=== PATIENT | female | born 1960 | race Caucasian/White ===

== ENCOUNTER 2025-04-19 12:12 | Outpatient (OUT) | payer OTHER, SELFPAY ==
--- OUTSIDE RECORDS SUMMARY | 2025-04-02 07:19 | XMS_ITS | Continuity of Care Document ---
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 [place] [address], [id number] , [place] tel:+ [phone] [facility] DE (chief complaint) Encounter for screening for dental disorders 2 Mubarak DDS Memo. [address] [place] [address], [id number], [place]. tel: [phone] [facility], [address] [place] [address], [id number] , [place] tel: [phone] [facility] de (chief complaint) Encounter for screening for dental disorders 2 Be ZUNILDA Dimitri. [address] [place] [address], [place], [id number] , [place]. tel: [phone] OFFICE/OUTPA TIENT VISIT, EST [facility], [address], [place], [id number] , [place] tel: [phone] [facility] F/U HTN (chief complaint)hyp ertension (chief complaint)Lab Draw (chief complaint) Hypertension, unspecified typeCervical radiculopathyCyst of tendon sheathBody mass index [BMI] 32.0-32.9, adult 2 Casey Weaver. [address] [place] [address], [id number] , [place]. tel: [phone] PREV VISIT, EST, AGE 40-64 [facility], [address] [place] [address], [id number] , [place] tel: [phone] [facility] annual exam (chief complaint) Encounter for gynecological examination (general) (routine) without abnormal findingsBody mass index [BMI] 32.0-32.9, adultCondyloma acuminatum 2 Jimbo Mendoza. [address] [place] [address], [id number] , [place]. tel: [phone] OFFICE/OUTPA TIENT VISIT, EST [facility], [address], [place], [id number] , [place] tel: [phone] [facility] F/U UTI (chief complaint)hyp ertension (chief complaint)All ergies (chief complaint)hyp erlipidemia (chief complaint)dep ression (chief complaint)BHAVESH D (chief complaint) Hypertension, unspecified typeHyperlipidemia , unspecified hyperlipidemia typeGastro-esophag eal reflux disease without esophagitisGeograp hic tongueAllergic rhinitis, unspecified seasonality, unspecified triggerSituational mixed anxiety and depressive disorderNeuropathy Neck painInjury of toe on left foot, initial encounterBody mass index [BMI] 32.0-32.9, adult 2 Casey Weaver. [address] [place] [address], [id number] , [place]. tel:+ [phone] OFFICE/OUTPA TIENT VISIT, [facility], [address] [place] [address], [id number] , [place] tel: [phone] [facility] Problem Visit UTI Symptoms (chief complaint)UTI (chief complaint) Acute UTIDysuria 2 Willam Pérez. [address] [place] [address], [id number] , [place]. tel: [phone] OFFICE/OUTPA TIENT VISIT, [facility], [address] [place] [address], [id number] , [place] tel: [phone] [facility] Follow-up (chief complaint)hyp ertension (chief complaint)daniel k pain (chief complaint)dep ression (chief complaint)hyp erlipidemia (chief complaint)All ergies (chief complaint) Hypertension, unspecified typeGastro-esophag eal reflux disease without esophagitisChronic low back pain, unspecified back pain laterality, unspecified whether sciatica presentAllergic rhinitis, unspecified seasonality, unspecified triggerSituational mixed anxiety and depressive disorderHyperlipid emia, unspecified hyperlipidemia typeBody mass index [BMI] 32.0-32.9, adultAtrial fibrillation, unspecified typeUpper respiratory tract infection, unspecified type 2 Casey Weaver. [address] [place] [address], [id number] , [place]. tel: [phone] OFFICE/OUTPA TIENT VISIT, [facility], [address] [place] [address], [id number] , [place] tel: [phone] [facility] Problem Visit (chief complaint) Exacerbation of asthma, unspecified asthma severity, unspecified whether persistentBody mass index [BMI] 31.0-31.9, adultAsthma 2 Waqar Cox. [address] [place], [address], [place]. tel: [phone] [facility], [address], [place], [id number] , [place] tel: [phone] [facility] Encounter For Screening For Covid-19 2 Visci DO Tien. [address], [place], [id number] , [place]. tel: [phone] OFFICE/OUTPA TIENT VISIT, [facility], [address], [place], [id number] , [place] tel: [phone] [facility] Problem Visit (chief complaint) Community acquired pneumonia of left lower lobe of lungAsthmaBody mass index [BMI] 31.0-31.9, adult 2 Charleen Edgar. [address] [place] [address], [id number] , [place]. tel: [phone] OFFICE/OUTPA TIENT VISIT, [facility], [address] [place] [address], [id number] , [place] tel: [phone] [facility] Short of breath/cough (chief complaint) Body mass index [BMI] 31.0-31.9, adultBronchitisAst hma 1 Willam Pérez. [address] [place] [address], [id number] , [place]. tel: [phone] [facility], [address] [place] [address], [id number] , [place] tel: [phone] [facility] Encounter For Screening For Covid-19 1 Visclori Cohen. [address] [place] [address], [id number] , [place]. tel: [phone] OFFICE/OUTPA TIENT VISIT, [facility], [address] [place] [address], [id number] , [place] tel: [phone] [facility] b/p check (chief complaint) Body mass index [BMI] 31.0-31.9, adultHypertension, unspecified typeWheezingShortn ess of breathNeuropathy 1 Charleen Edgar. [address] [place] [address], [id number] , [place]. tel: [phone] OFFICE/OUTPA TIENT VISIT, [facility], [address] [place] [address], [id number] , [place] tel: [phone] [facility] Mouth issues (chief complaint) Body mass index [BMI] 32.0-32.9, adultThrushHyperte nsion, unspecified typeSituational mixed anxiety and depressive disorder 1 Charleen Edgar. [address] [place] [address], [id number] , [place]. tel: [phone] OFFICE/OUTPA TIENT VISIT, [facility], [address] [place] [address], [id number] , [place] tel: [phone] [facility] Resp issues (chief complaint) Body mass index [BMI] 33.0-33.9, adultCoughThrush 1 Charleen Edgar. [address] [place] [address], [id number] , [place]. tel: [phone] OFFICE/OUTPA TIENT VISIT, [facility], [address] [place] [address], [id number] , [place] tel: [phone] [facility] Acute (chief complaint) Body mass index [BMI] 33.0-33.9, adultAcute bronchiolitis, unspecifiedExacerb ation of asthma, unspecified asthma severity, unspecified whether persistent 1 Willam Pérez. [address] [place] [address], [id number] , [place]. tel: [phone] OFFICE/OUTPA TIENT VISIT, [facility], [address] [place] [address], [id number] , [place] tel: [phone] [facility] Med Refill (chief complaint) Post-nasal drainageNeuropathy Situational mixed anxiety and depressive disorder 1 Charleen Edgar. [address] [place] [address], [id number] , [place]. tel:+ [phone] OFFICE/OUTPA TIENT VISIT, [facility], [address] [place] [address], [id number] , [place] tel: [phone] [facility] Follow-Up (chief complaint) Atrial fibrillation, unspecified typeHypertension, unspecified typeNeuropathySitu ational mixed anxiety and depressive disorderGastro-eso phageal reflux disease without esophagitis 1 Charleen Edgar. [address] [place] [address], [id number] , [place]. tel: [phone] OFFICE/OUTPA TIENT VISIT, [facility], [address] [place] [address], [id number] , [place] tel: [phone] [facility] telehealth (chief complaint) Cough 1 Charleen Edgar. [address] [place] [address], [id number] , [place]. tel: [phone] OFFICE/OUTPA TIENT VISIT, [facility], [address] [place] [address], [id number] , [place] tel: [phone] [facility] covid exposure (chief complaint) CoughChest tightnessFatigue, unspecified typeWheezingEncoun ter for screening for other viral disease 0 Charleen Edgar. [address] [place] [address], [id number] , [place]. tel:+ [phone] OFFICE/OUTPA TIENT VISIT, [facility], [address] [place] [address], [id number] , [place] tel:+ [phone] [facility] UTI SX (chief complaint) Body mass index [BMI] 34.0-34.9, adultDysuriaUrinar y frequency Oct- 0 Charleen Edgar. [address] [place] [address], [id number] , [place]. tel: [phone] OFFICE/OUTPA TIENT VISIT, [facility], [address] [place] [address], [id number] , [place] tel: [phone] [facility] f/u GERD (chief complaint) Body mass index [BMI] 34.0-34.9, adultAnnual physical examGastro-esophag eal reflux disease without esophagitisHyperte nsion, unspecified typeVertigo 0 Charleen Edgar. [address] [place] [address], [id number] , [place]. tel: [phone] OFFICE/OUTPA TIENT VISIT, [facility], [address] [place] [address], [id number] , [place] tel: [phone] [facility] problem visit (chief complaint) Body mass index (BMI) 34.0-34.9, adultGastro-esopha geal reflux disease without esophagitis Apr-0 0 Charleen Edgar. [address] [place] [address], [id number] , [place]. tel: [phone] OFFICE/OUTPA TIENT VISIT, [facility], [address] [place] [address], [id number] , [place] tel: [phone] [facility] annual exam (chief complaint) Body mass index (BMI) 34.0-34.9, [facility] woman check w/o abnormal findingHematoma of left breast 0 Jimbo [facility] Kelly. [address] [place] [address], [id number] , [place]. tel: [phone] OFFICE/OUTPA TIENT VISIT, [facility], [address] [place] [address], [id number] , [place] tel: [phone] [facility] mask issues (chief complaint) Body mass index (BMI) 34.0-34.9, adultAtrial fibrillation, unspecified type 0 Soto Buckley. [address], [place], [id number] , [place]. tel: [phone] [facility], [address], [place], [id number] , [place] tel: [phone] [facility] Encounter for screening for dental disorders 0 Bello Henry. [address], [place], [id number] , [place]. tel: [phone] [facility], [address], [place], [id number] , [place] tel: [phone] [facility] post op (chief complaint) Encounter for screening for dental disorder 0 Bello Henry. [address], [place], [id number] , [place]. tel: [phone] [facility], [address] [place] [address], [id number] , [place] tel: [phone] [facility] post op (chief complaint) Encounter for screening for dental disorder 0 Bello Henry. [address], [place], [id number] , [place]. tel: [phone] [facility], [address], [place], [id number] , [place] tel: [phone] [facility] ext (chief complaint) Encounter for screening for dental disorders 0 Bello Henry. [address], [place], [id number] , [place]. tel: [phone] OFFICE/OUTPA TIENT VISIT, EST [facility], [address], [place], [id number] , [place] tel: [phone] [facility] Skin Tag (chief complaint) Body mass index (BMI) 35.0-35.9, adultLow back pain 0 Charleen Edgar. [address], [place], [id number] , [place]. tel: [phone] [facility], [address], [place], [id number] , [place] tel: [phone] [facility] Filling Appt. (chief complaint) Encounter for screening for dental disorders 0 Fernandez Kaba. [address] [place] [address], [place], [id number] , [place]. tel: [phone] [facility], [address], [place], [id number] , [place] tel: [phone] [facility] sin tag removal (chief complaint) Body mass index (BMI) 35.0-35.9, adultAcrochordon 0 Charleen Edgar. [address] [place] [address], [id number] , [place]. tel: [phone] OFFICE/OUTPA TIENT VISIT, EST [facility], [address] [place] [address], [id number] , [place] tel: [phone] [facility] med refill (chief complaint) Body mass index (BMI) 35.0-35.9, adultHypertension, unspecified typeNeuropathyAtri al fibrillation, unspecified type 9 Charleen Edgar. [address] [place] [address], [id number] , [place]. tel: [phone] [facility], [address] [place] [address], [id number] , [place] tel: [phone] [facility] Encounter for screening for dental disorders 9 Fernandez Kaba. [address], [place], [id number] , [place]. tel: [phone] [facility], [address] [place] [address], [id number] , [place] tel: [phone] [facility] Encounter for screening for dental disorders 9 Bello Henry. [address] [place] [address], [id number] , [place]. tel: [phone] [facility], [address] [place] [address], [id number] , [place] tel: [phone] [facility] Dental New (chief complaint) Encounter for screening for dental disorders 9 gavin SUAREZ Varsha. [address] [place] [address], [id number] , [place]. tel: [phone] OFFICE/OUTPA TIENT VISIT, [facility], [address] [place] [address], [id number] , [place] tel: [phone] [facility] skin tag removal (chief complaint) Left foot painSkin lesionBody mass index (BMI) 35.0-35.9, adultAcrochordon 9 Charleen SQUIRES-Angie Edgar. [address] [place] [address], [id number] , [place]. tel: [phone] OFFICE/OUTPA TIENT VISIT, [facility], [address] [place] [address], [id number] , [place] tel: [phone] [facility] med f/u (chief complaint)hyp ertension (chief complaint) Well adult health checkLow back painNeuropathyBody mass index (BMI) 35.0-35.9, adultAcute pain of left shoulder 9 Charleen Edgar. [address] [place] [address], [id number] , [place]. tel: [phone] [facility], [address] [place] [address], [id number] , [place] tel: [phone] [facility] Neuropathy 9 Charleen Edgar. [address] [place] [address], [id number] , [place]. tel: [phone] OFFICE/OUTPA TIENT VISIT, [facility], [address] [place] [address], [id number] , [place] tel: [phone] [facility] b/p check and med refill (chief complaint) Body mass index (BMI) 34.0-34.9, adultHypertension, unspecified typeGeographic tongue 9 Charleen Edgar. [address], [place], [id number] , [place]. tel: [phone] OFFICE/OUTPA TIENT VISIT, [facility], [address] [place] [address], [id number] , [place] tel: [phone] [facility] Hysterectomy Consult (chief complaint) Body mass index (BMI) 34.0-34.9, adultCIN 1 9-201 9 Visci DO Tien. [address] [place] [address], [id number] , [place]. tel: [phone] [facility], [address] [place] [address], [id number] , [place] tel: [phone] [facility] urine sample (chief complaint) Dysuria 9 Charleen Edgar. [address] [place] [address], [id number] , [place]. tel: [phone] OFFICE/OUTPA TIENT VISIT, [facility], [address] [place] [address], [id number] , [place] tel: [phone] [facility] hosp f/u (chief complaint) VertigoBody mass index (BMI) 34.0-34.9, adult 9 Casey Weaver. [address] [place] [address], [id number] , [place]. tel: [phone] [facility], [address] [place] [address], [id number] , [place] tel: [phone] [facility] abnormal pap smear (chief complaint)Col poscopy (chief complaint) Body mass index (BMI) 35.0-35.9, adultASCUS on pap smear of cervixHPV (human papilloma virus) infectionCervical high risk HPV DNA test positive 0 9 Visci DO Chauhan. [address] [place] [address], [id number] , [place]. tel: [phone] OFFICE/OUTPA TIENT VISIT, EST [facility], [address] [place] [address], [id number] , [place] tel: [phone] [facility] swelling of tongue and throat (chief complaint) Body mass index (BMI) 34.0-34.9, adultMucosal irritation of oral cavityBruise 9 Casey Weaver. [address], [place], [id number] , [place]. tel: [phone] [facility], [address] [place] [address], [id number] , [place] tel: [phone] [facility] f/u sick visit (chief complaint) Body mass index (BMI) 34.0-34.9, adultUpper respiratory tract infection, unspecified typeOral pain 9 Casey Weaver. [address] [place] [address], [id number] , [place]. tel: [phone] [facility], [address], [place], [id number] , [place] tel: [phone] [facility] cold sx (chief complaint) Body mass index (BMI) 34.0-34.9, adultUpper respiratory tract infection, unspecified type 9 Casey Weaver. [address] [place] [address], [id number] , [place]. tel: [phone] [facility], [address] [place] [address], [id number] , [place] tel: [phone] [facility] F/u (chief complaint) Body mass index (BMI) 35.0-35.9, adultHospital discharge follow-upAtrial fibrillation, unspecified type 9 Charleen Edgar. [address] [place] [address], [id number] , [place]. tel: [phone] PREV VISIT, EST, AGE 40-64 [facility], [address] [place] [address], [id number] , [place] tel:+ [phone] [facility] annual exam (chief complaint) Encounter for screening mammogram for Ca of breastBody mass index (BMI) 34.0-34.9, adultEncntr for juvenile detention officer exam (general) (routine) w/o abn findings- STD liefstyle code- STD screen 9 [facility] Kelly. [address], [place], [id number] , [place]. tel: [phone] OFFICE/OUTPA TIENT VISIT, [facility], [address], [place], [id number] , [place] tel: [phone] [facility] throat (chief complaint) Body mass index (BMI) 35.0-35.9, adultCough 8 Charleen Edgar. [address] [place] [address], [id number] , [place]. tel: [phone] OFFICE/OUTPA TIENT VISIT, [facility], [address], [place], [id number] , [place] tel: [phone] [facility] bronchitis follow up (chief complaint) Body mass index (BMI) 35.0-35.9, adultBronchitisAst hmaCough 8 Prieto Cruz. [address], [place], [id number] , [place]. tel: [phone] OFFICE/OUTPA TIENT VISIT, [facility], [address], [place], [id number] , [place] tel: [phone] [facility] abnormal pap smear (chief complaint) Body mass index (BMI) 33.0-33.9, adultASCUS on pap smear of cervix 8 [facility] Kelly. [address], [place], [id number] , [place]. tel: [phone] OFFICE/OUTPA TIENT VISIT, [facility], [address] [place] [address], [id number] , [place] tel: [phone] [facility] lab review (chief complaint)rig ht foot (chief complaint)spo ts on fingers (chief complaint)Hac ker (chief complaint) Pain, foot, right, chronicBody mass index (BMI) 34.0-34.9, adultPrediabetesHy pertension, unspecified type - 8 Charleen Edgar. [address] [place] [address], [id number] , [place]. tel: [phone] [facility], [address] [place] [address], [id number] , [place] tel: [phone] [facility] labs (chief complaint) No Information - 8 Charleen Edgar. [address] [place] [address], [id number] , [place]. tel: [phone] [facility], [address] [place] [address], [id number] , [place] tel: [phone] [facility] urinary complaints (chief complaint) Body mass index (BMI) 34.0-34.9, adultUrinary tract infection without hematuria, site unspecified 8 Charleen Edgar. [address] [place] [address], [id number] , [place]. tel: [phone] [facility], [address] [place] [address], [id number] , [place] tel: [phone] [facility] sick (chief complaint)[place] t[place]: (chief complaint) CoughShortness of breathSore throatFatigue, unspecified typeDysuria Oct-3 0- 8 Moody Moore. [address] [place] [address], [id number], [place]. tel: [phone] [facility], [address] [place] [address], [id number] , [place] tel: [phone] [facility] pneumonia follow up (chief complaint)scr eenings (chief complaint) AsthmaHTNPneumonia due to infectious organism, unspecified laterality, unspecified part of lungLow back pain Mar-2 3-201 8 Leticia Nebwy. [address] [place] [address], [id number], [place]. tel: [phone] [facility], [address] [place] [address], [id number] , [place] tel: [phone] [facility] sick follow up (chief complaint)low back (chief complaint)Den efrenon: (chief complaint) AsthmaGastro-esoph ageal reflux disease without esophagitisHTNPneu monia due to infectious organism, unspecified laterality, unspecified part of lung Oct-0 9-201 8 Leticia Newby. [address] [place] [address], [id number], [place]. tel: [phone] [facility], [address] [place] [address], [id number] , [place] tel: [phone] [facility] ER follow up (chief complaint)ER follow-up (chief complaint) Pneumonia due to infectious organism, unspecified laterality, unspecified part of lung Mar-0 6-201 8 Uriosteguizenon Calderondith. [address] [place] [address], [id number], [place]. tel: [phone] PREV VISIT, EST, AGE 40-64 [facility], [address] [place] [address], [id number] , [place] tel: [phone] [facility] annual exam (chief complaint) Encntr for juvenile detention officer exam (general) (routine) w/o abn findingsEncounter for screening mammogram for Ca of breast- STD screen- STD liefstyle codeUrinary frequency 0 8 Jim[facility]. [address] [place] [address], [id number] , [place]. tel: [phone] OFFICE/OUTPA TIENT VISIT, EST [facility], [address] [place] [address], [id number] , [place] tel: [phone] [facility] sore throat (chief complaint) Acute pharyngitis, unspecifiedAcute pharyngitis, unspecified 7 Prieto Cruz. [address] [place] [address], [id number] , [place]. tel: [phone] [facility], [address] [place] [address], [id number] , [place] tel: [phone] [facility] swollen finger (chief complaint) Cellulitis of finger 7 Prieto Cruz. [address] [place] [address], [id number] , [place]. tel: [phone] OFFICE/OUTPA TIENT VISIT, [facility], [address] [place] [address], [id number] , US tel: [phone] [facility] leg pain (chief complaint) Unspecified injury of left lower leg, sequela 7 Prieto Cruz. [address] [place] [address], [id number] , [place]. tel: [phone] OFFICE/OUTPA TIENT VISIT, [facility], [address] [place] [address], [id number] , [place] tel: [phone] [facility] dizziness/los e balance (chief complaint)daniel k pain (chief complaint) Low back painVertigo 7 Prieto Cruz. [address] [place] [address], [id number] , [place]. tel: [phone] OFFICE/OUTPA TIENT VISIT, [facility], [address] [place] [address], [id number] , [place] tel: [phone] [facility] est care (chief complaint) HTNAsthmaGastro-es ophageal reflux disease without esophagitisEncount er for adult annual physical exam w/ abnormal finding 7 Prieto Cruz. [address] [place] [address], [id number] , [place]. tel: [phone] Family History Family Member Type Diagnosis Age At Onset Father Problem (finding) hypertension Father Problem (finding) Alive and well Father Problem (finding) Eczema Mother Problem (finding) Alive and well Father Problem (finding) asthma Father Problem (finding) hypercholesterolemia Immunizations Vaccine Date Status Comments Fluarix/Flulaval refused Source: New Immunization Record Fluarix/Flulaval not administered Source: New Immunization Record Flulaval/ Fluarix refused Source: Ne w Immunization Record Flulaval/ Fluarix refused Source: Ne w Immunization Record Tdap (Boostrix) administered Source: New Immunization Record Flulaval/ Fluarix refused Source: Ne w Immunization Record Flulaval/ Fluarix refused Source: Ne w Immunization Record Flulaval/ Fluarix refused Source: Ne w Immunization Record Influenza virus vaccine, quadrivalent, split virus, preservative free refused Source: New Immuniza tion Record Pneumo (2 yrs or older)(PPV) refused Source: New Immunization Record influenza, unspecified formulation administered Source: Other Regist ry Payers Payer name Insurance type Covered republican ID Authoriza tion(s) [employer] CI [id number] [facility] CI [id number] [facility] CI [id number] [place] CFC [id number] Medicaid Wrap - [facility] MC [id number] Self Pay Cap 09 [id number] Self Pay Cap [id number] Self Pay Cap [id number] Medicaid Primary - [facility]QHC MC [id number] Self Pay Cap 09 [id number] Medicaid Wrap - [facility] MC [id number] Social History Type Description Quantity Date Captured Comments Alcohol Use Details No Caffeine Use Details tea and soda > 32oz per day Tobacco Use Status Current non-smoker Smoking Status Never smoker Non-Smoking Tobacco Use Details : No Details Available : No Details Available Sex Female Sexual Orientation Straight or heterosexual Gender Identity Female Vital Signs Date / Time: Height Weight BMI Pulse Rate Blood Pressure Temperature Respiratory Rate Body Surface Area Head Circumference Head Circ. Percentile Wt./Timo. Percentile BMI percentile Pulse Ox Inhaled Ox 11:34 AM 63.00 in 85.003 kg (187.40 lbs) 33.2 0 kg/m eter (2) 69 /min 128/78 mm[Hg] 97.40 F 1.94 meter(2) 97 % Chief Complaint And Reason For Visit From encounter dated '04/02/2025 11:19'. Office visit (chief complaint). Description: Patient presents for hypertension follow up. Patient notes she gets intermittent pains in the back of her head that radiate to her eyes, some heart fluttering, dizziness and blurry vision. 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 Lalo hypertension (chief complaint). Description: It is currently stable. Risk factors include age over age 60, inactive lifestyle and obesity. The hypertension is exacerbated by nothing. Associated symptoms include headache and irregular heartbeat/palpitations. Pertinent negatives include chest pain, co nfusion, dyspnea, nausea, transient weakness, visual disturbances and vomiting. Additional information: Ahmet SQUIRES Palpitations (chief complaint). Description: The client presents with a complaint of Palpitations. The symptoms began 3 to 4 days ago. The client denies chest pain, dyspnea, nausea and vomiting. Relevant history for this client excludes tobacco use. The client denies any aggravating factors. Interventions the client has tried have not provided any relief. The Palpitations is associated with headache. The client denies any dependent edema, dyspnea on exertion, generalized weakness, lightheadedness or syncope. Additional information: Ahmet Reed Headache (chief complaint). Description: Onset: 2 Weeks. The severity of the problem is moderate. The symptoms are recurring. Locations affected include occipital. Symptoms are not associated with recent head trauma, recent MVA and stress. Denies aggravating factors. Denies relieving factors. Pertinent negatives include blurred vision, diplopia, dizziness, fever, loss of consciousness, nausea, phonophobia, photophobia, neck stiffness, vision loss left, vertigo and vomiting. Additional information: hAmet SQUIRES. Reason For Referral Reason For Referral No Information Plan Of Treatment Date Type Action Status Goal Depression scree tyler. Due on due Goal Zoster vaccine ( 1st). Due on due Goal Hepatitis C scre ening. Due on due Goal Tdap due Goal Influenza vaccine. Due on due Goal Tdap Vaccine. Due on 2031 due Goal HPV. Due on due Goal Hep A. Due on du e Goal Unhealthy drug u se screening. Due on due Goal Colonoscopy. Due on due Goal Mammogram. Due on due Goal PRAPARE ASSESSMENT. Due on due Goal Lipid panel. Due on due Goal Diabetes screening. Due on due Goal Urinalysis due Goal ECG. Due on due Goal Dietary manageme nt education, guidance, and counseling completed Goal Hep A. Due on du e Goal Zoster vaccine ( ). Due on due Goal HPV. Due on due Goal Colonoscopy. Due on due Goal PRAPARE ASSESSMENT. Due on due Goal Tdap due Goal Depression scree tyler. Due on due Goal ECG. Due on due Goal Urinalysis due Goal Diabetes screening. Due on due Goal Hepatitis C scre ening. Due on due Goal Tdap Vaccine. Due on 2031 due Goal Mammogram. Due on 0 due Goal Influenza vaccine. Due on due Goal Lipid panel. Due on due Goal Unhealthy drug u se screening. Due on due Goal Dietary manageme nt education, guidance, and counseling completed Goal Colonoscopy. Due on due Goal Influenza vaccine. Due on due Goal Depression scree tyler. Due on due Goal Zoster vaccine ( ). Due on due Goal Hepatitis C scre ening. Due on due Goal Tdap Vaccine. Due on 2031 due Goal Tdap due Goal Lipid panel. Due on due Goal HPV. Due on due Goal Mammogram. Due on 0 due Goal PRAPARE ASSESSMENT. Due on due Goal Unhealthy drug u se screening. Due on due Goal ECG. Due on due Goal Urinalysis due Goal Diabetes screening. Due on due Goal Dietary manageme nt education, guidance, and counseling completed Goal Influenza vaccine. Due on due Goal Lipid panel. Due on due Goal Tdap Vaccine. Due on 2031 due Goal Hepatitis C scre ening. Due on due Goal ECG. Due on due Goal Urinalysis due Goal PRAPARE ASSESSMENT. Due on due Goal Diabetes screening. Due on due Goal Unhealthy drug u se screening. Due on due Goal Colonoscopy. Due on due Goal Depression scree tyler. Due on due Goal Mammogram. Due on due Goal Tdap due Goal Zoster vaccine ( ). Due on due Goal Hep A. Due on du e Goal HPV. Due on due Goal Lifestyle education regardin g diet completed Goal Unhealthy drug u se screening. Due on due Goal Mammogram. Due on 0 due Goal Zoster vaccine ( ). Due on due Goal Lipid panel. Due on due Goal Tdap due Goal Hepatitis C scre ening. Due on due Goal Influenza vaccine. Due on due Goal PRAPARE ASSESSMENT. Due on due Goal Depression scree tyler. Due on due Goal HPV. Due on due Goal Tdap Vaccine. Due on 2031 due Goal Colonoscopy. Due on due Goal Diabetes screening. Due on due Goal Hep A. Due on du e Goal Urinalysis due Goal ECG. Due on due Goal ECG. Due on due Goal Depression scree tyler. Due on due Goal Unhealthy drug u se screening. Due on due Goal Zoster vaccine ( ). Due on due Goal Urinalysis due Goal Hepatitis C scre ening. Due on due Goal Mammogram. Due on due Goal Tdap due Goal Lipid panel. Due on due Goal Colonoscopy. Due on due Goal Tdap Vaccine. Due on 2031 due Goal Diabetes screening. Due on due Goal PRAPARE ASSESSMENT. Due on due Goal HPV. Due on due Goal Influenza vaccine. Due on due Goal Tdap Vaccine. Due on 2031 due Goal Colonoscopy. Due on due Goal HPV. Due on due Goal Lipid panel. Due on due Goal Hepatitis C scre ening. Due on due Goal Tdap due Goal Influenza vaccine. Due on due Goal Depression scree tyler. Due on due Goal Hep A. Due on du e Goal Mammogram. Due on 0 due Goal Zoster vaccine ( ). Due on due Goal Unhealthy drug u se screening. Due on due Goal PRAPARE ASSESSMENT. Due on due Goal Urinalysis due Goal Diabetes screening. Due on due Goal ECG. Due on due Goal Lifestyle education regardin g diet completed Goal Hep A. Due on du e Goal Urinalysis due Goal PRAPARE ASSESSMENT. Due on due Goal Unhealthy drug u se screening. Due on due Goal Mammogram. Due on 0 due Goal Depression scree tyler. Due on due Goal Lipid panel. Due on 029 due Goal ECG. Due on due Goal HPV. Due on due Goal Hepatitis C scre ening. Due on due Goal Diabetes screening. Due on due Goal Influenza vaccine. Due on due Goal Tdap Vaccine. Due on 2031 due Goal Tdap due Goal Colonoscopy. Due on 033 due Goal Zoster vaccine ( 1st). Due on due Goal Dietary manageme nt education, guidance, and counseling completed Goal Mammogram. Due on 0 due Goal Lipid panel. Due on due Goal PRAPARE ASSESSMENT. Due on N due Goal HPV. Due on due Goal Tdap due Goal Zoster vaccine ( 1st). Due on due Goal Unhealthy drug u se screening. Due on due Goal Hepatitis C scre ening. Due on due Goal Influenza vaccine. Due on No due Goal Tdap Vaccine. Due on 2031 due Goal Colonoscopy. Due on due Goal Depression scree tyler. Due on due Goal Diabetes screening. Due on N due Goal ECG. Due on due Goal Urinalysis due Goal Lifestyle education regardin g diet completed Goal Tdap due Goal Zoster vaccine ( ). Due on due Goal HPV. Due on due Goal Influenza vaccine. Due on Oc due Goal Mammogram. Due on 0 due Goal Lipid panel. Due on due Goal PRAPARE ASSESSMENT. Due on O due Goal Colonoscopy. Due on due Goal Depression scree tyler. Due on due Goal ECG. Due on due Goal Tdap Vaccine. Due on 2031 due Goal Unhealthy drug u se screening. Due on due Goal Hepatitis C scre ening. Due on due Goal Diabetes screening. Due on O due Goal Urinalysis due Goal Lifestyle education regardin g diet completed Goal Diabetes screening. Due on O due Goal Unhealthy drug u se screening. Due on due Goal Depression scree tyler. Due on due Goal ECG. Due on due Goal Hepatitis C scre ening. Due on due Goal Zoster vaccine ( 1st). Due on due Goal Lipid panel. Due on 029 due Goal Influenza vaccine. Due on Oc due Goal Urinalysis due Goal Tdap due Goal Colonoscopy. Due on 033 due Goal Mammogram. Due on due Goal PRAPARE ASSESSMENT. Due on O due Goal Tdap Vaccine. Due on 2031 due Goal HPV. Due on due Goal ECG. Due on due Goal HPV. Due on due Goal Unhealthy drug u se screening. Due on due Goal Zoster vaccine ( 1st). Due on due Goal Hepatitis C scre ening. Due on due Goal Diabetes screening. Due on O due Goal Tdap due Goal Mammogram. Due on 0 due Goal Urinalysis due Goal PRAPARE ASSESSMENT. Due on O due Goal Lipid panel. Due on due Goal Influenza vaccine. Due on Oc due Goal Colonoscopy. Due on due Goal Tdap Vaccine. Due on 2031 due Goal Depression scree tyler. Due on due Goal Lifestyle education regardin g diet completed Goal Zoster vaccine ( ). Due on due Goal Influenza vaccine. Due on Au due Goal Unhealthy drug u se screening. Due on due Goal Colonoscopy. Due on due Goal Lipid panel. Due on due Goal Tdap Vaccine. Due on 2031 due Goal Depression scree tyler. Due on due Goal Hepatitis C scre ening. Due on due Goal PRAPARE ASSESSMENT. Due on A due Goal HPV. Due on due Goal Mammogram. Due on due Goal Tdap due Goal ECG. Due on due Goal Diabetes screening. Due on A due Goal Urinalysis due Goal Dietary manageme nt education, guidance, and counseling completed Goal Mammogram. Due on 0 due Goal ECG. Due on due Goal Diabetes screening. Due on A due Goal Zoster vaccine ( ). Due on due Goal Lipid panel. Due on 029 due Goal Hepatitis C scre ening. Due on due Goal HPV. Due on due Goal Depression scree tyler. Due on due Goal Tdap due Goal Urinalysis due Goal PRAPARE ASSESSMENT. Due on due Goal Unhealthy drug u se screening. Due on due Goal Tdap Vaccine. Due on 2031 due Goal Influenza vaccine. Due on due Goal Colonoscopy. Due on due Goal PRAPARE ASSESSMENT. Due on due Goal Zoster vaccine ( ). Due on due Goal Mammogram. Due on 0 due Goal Urinalysis due Goal Colonoscopy. Due on due Goal Tdap Vaccine. Due on 2031 due Goal Depression scree tyler. Due on due Goal Influenza vaccine. Due on due Goal Unhealthy drug u se screening. Due on due Goal Tdap due Goal Hepatitis C scre ening. Due on due Goal Diabetes screening. Due on due Goal ECG. Due on due Goal Lipid panel. Due on due Goal HPV. Due on due Goal Lipid panel. Due on due Goal Unhealthy drug u se screening. Due on due Goal Tdap Vaccine. Due on 2031 due Goal HPV. Due on due Goal Tdap due Goal Zoster vaccine ( ). Due on due Goal Colonoscopy. Due on due Goal Mammogram. Due on 0 due Goal Hepatitis C scre ening. Due on due Goal Influenza vaccine. Due on due Goal Depression scree tyler. Due on due Goal PRAPARE ASSESSMENT. Due on due Goal Diabetes screening. Due on due Goal Urinalysis due Goal ECG. Due on due Goal Colonoscopy. Due on due Goal Diabetes screening. Due on due Goal Lipid panel. Due on due Goal Tdap due Goal Mammogram. Due on due Goal Zoster vaccine ( ). Due on due Goal Depression scree tyler. Due on due Goal Tdap Vaccine. Due on 2031 due Goal Influenza vaccine. Due on due Goal HPV. Due on due Goal Unhealthy drug u se screening. Due on due Goal Hepatitis C scre ening. Due on due Goal PRAPARE ASSESSMENT. Due on due Goal Urinalysis due Goal ECG. Due on due Goal Lifestyle education regardin g diet completed Goal Unhealthy drug u se screening. Due on due Goal Colonoscopy. Due on 033 due Goal Tdap due Goal Lipid panel. Due on 027 due Goal PRAPARE ASSESSMENT. Due on due Goal Hepatitis C scre ening. Due on due Goal Mammogram. Due on due Goal Influenza vaccine. Due on due Goal Zoster vaccine ( ). Due on due Goal HPV. Due on due Goal Depression scree tyler. Due on due Goal Tdap Vaccine. Due on 2031 due Goal ECG. Due on due Goal Diabetes screening. Due on due Goal Urinalysis due Goal ECG. Due on due Goal PRAPARE ASSESSMENT. Due on A due Goal Zoster vaccine ( 1st). Due on due Goal Colonoscopy. Due on 033 due Goal Diabetes screening. Due on A due Goal Tdap Vaccine. Due on 2031 due Goal Hep A. Due on du e Goal Lipid panel. Due on due Goal Urinalysis due Goal Depression scree tyler. Due on due Goal Hepatitis C scre ening. Due on due Goal Influenza vaccine. Due on due Goal HPV. Due on due Goal Mammogram. Due on due Goal Unhealthy drug u se screening. Due on due Goal Tdap due Goal Dietary manageme nt education, guidance, and counseling completed Goal Tdap Vaccine. Due on 2031 due Goal Influenza vaccine. Due on due Goal Zoster vaccine ( ). Due on due Goal Diabetes screening. Due on due Goal Hep A. Due on du e Goal HPV. Due on due Goal Tdap due Goal PRAPARE ASSESSMENT. Due on due Goal Unhealthy drug u se screening. Due on due Goal Hepatitis C scre ening. Due on due Goal Lipid panel. Due on due Goal Depression scree ytler. Due on due Goal Mammogram. Due on 0 due Goal Urinalysis due Goal ECG. Due on due Goal Colonoscopy. Due on due Goal Lifestyle education regardin g diet completed Goal Hep A. Due on du e Goal Hepatitis C scre ening. Due on due Goal Lipid panel. Due on due Goal Zoster vaccine ( ). Due on due Goal Tdap Vaccine. Due on 2031 due Goal Depression scree tyler. Due on due Goal HPV. Due on due Goal Unhealthy drug u se screening. Due on due Goal Mammogram. Due on 0 due Goal Tdap due Goal Influenza vaccine. Due on due Goal PRAPARE ASSESSMENT. Due on due Goal Colonoscopy. Due on due Goal Urinalysis due Goal ECG. Due on due Goal Diabetes screening. Due on due Goal Lifestyle education regardin g diet completed Goal HPV. Due on due Goal Influenza vaccine. Due on due Goal Tdap Vaccine. Due on 2031 due Goal Mammogram. Due on 0 due Goal Hepatitis C scre ening. Due on due Goal Zoster vaccine ( ). Due on due Goal Lipid panel. Due on due Goal Hep A. Due on du e Goal Diabetes screening. Due on due Goal Urinalysis due Goal Colonoscopy. Due on due Goal PRAPARE ASSESSMENT. Due on due Goal ECG. Due on due Goal Tdap due Goal Unhealthy drug u se screening. Due on due Goal Depression scree tyler. Due on due Goal Diabetes screening. Due on due Goal Hepatitis C scre ening. Due on due Goal ECG. Due on due Goal PRAPARE ASSESSMENT. Due on due Goal Urinalysis due Goal Influenza vaccine. Due on due Goal HPV. Due on due Goal Tdap Vaccine. Due on 2031 due Goal Mammogram. Due on 0 due Goal Lipid panel. Due on due Goal Unhealthy drug u se screening. Due on due Goal Colonoscopy. Due on due Goal Zoster vaccine ( ). Due on due Goal Depression scree tyler. Due on due Goal Tdap due Goal Tdap Vaccine. Due on 2031 due Goal Colonoscopy. Due on 033 due Goal Hepatitis C scre ening. Due on due Goal Zoster vaccine ( ). Due on due Goal Urinalysis due Goal Influenza vaccine. Due on due Goal PRAPARE ASSESSMENT. Due on due Goal HPV. Due on due Goal Tdap due Goal Hep A. Due on du e Goal Depression scree tyler. Due on due Goal Unhealthy drug u se screening. Due on due Goal Mammogram. Due on due Goal Lipid panel. Due on 027 due Goal ECG. Due on due Goal Diabetes screening. Due on due Goal Lifestyle education regardin g diet completed Goal Hep A. Due on du e Goal Tdap Vaccine. Due on 2031 due Goal Depression scree tyler. Due on due Goal Unhealthy drug u se screening. Due on due Goal Zoster vaccine ( ). Due on due Goal Colonoscopy. Due on due Goal HPV. Due on due Goal Tdap due Goal Urinalysis due Goal Lipid panel. Due on due Goal Hepatitis C scre ening. Due on due Goal Influenza vaccine. Due on due Goal Mammogram. Due on 0 due Goal PRAPARE ASSESSMENT. Due on due Goal ECG. Due on due Goal Diabetes screening. Due on due Goal Dietary manageme nt education, guidance, and counseling completed Goal Colonoscopy. Due on due Goal Depression scree tyler. Due on due Goal Tdap due Goal Hepatitis C scre ening. Due on due Goal Mammogram. Due on 0 due Goal Lipid panel. Due on due Goal HPV. Due on due Goal Zoster vaccine ( 1st). Due on due Goal PRAPARE ASSESSMENT. Due on due Goal Tdap Vaccine. Due on 2031 due Goal Influenza vaccine. Due on due Goal ECG. Due on due Goal Urinalysis due Goal Diabetes screening. Due on due Goal Unhealthy drug u se screening. Due on due Goal Dietary manageme nt education, guidance, and counseling completed Goal Tdap Vaccine. Due on 2031 due Goal Unhealthy drug u se screening. Due on due Goal Mammogram. Due on due Goal Tdap due Goal HPV. Due on due Goal Colonoscopy. Due on due Goal Lipid panel. Due on due Goal Hepatitis C scre ening. Due on due Goal PRAPARE ASSESSMENT. Due on N due Goal Zoster vaccine ( ). Due on due Goal Depression scree tyler. Due on due Goal Influenza vaccine. Due on due Goal Urinalysis due Goal ECG. Due on due Goal Diabetes screening. Due on N due Goal Zoster vaccine ( ). Due on due Goal HPV. Due on due Goal Colonoscopy. Due on due Goal Tdap due Goal Depression scree tyler. Due on due Goal Hepatitis C scre ening. Due on due Goal Unhealthy drug u se screening. Due on due Goal Mammogram. Due on due Goal Lipid panel. Due on due Goal PRAPARE ASSESSMENT. Due on N due Goal Influenza vaccine. Due on No due Goal Tdap Vaccine. Due on 2031 due Goal Urinalysis due Goal Diabetes screening. Due on N due Goal ECG. Due on due Goal Lifestyle education regardin g diet completed Goal Hep A. Due on du e Goal Influenza vaccine. Due on No due Goal Tdap due Goal Lipid panel. Due on 027 due Goal Colonoscopy. Due on 033 due Goal PRAPARE ASSESSMENT. Due on N due Goal Zoster vaccine ( ). Due on due Goal HPV. Due on due Goal Tdap Vaccine. Due on 2031 due Goal Mammogram. Due on due Goal Hepatitis C scre ening. Due on due Goal Unhealthy drug u se screening. Due on due Goal ECG. Due on due Goal Urinalysis due Goal Diabetes screening. Due on N due Goal Depression scree tyler. Due on due Goal PRAPARE ASSESSMENT. Due on O due Goal Hep A. Due on du e Goal Tdap Vaccine. Due on 2031 due Goal HPV. Due on due Goal Mammogram. Due on 0 due Goal Colonoscopy. Due on due Goal Hepatitis C scre ening. Due on due Goal Zoster vaccine ( ). Due on due Goal Lipid panel. Due on due Goal Influenza vaccine. Due on Oc t due Goal Unhealthy drug u se screening. Due on due Goal Tdap due Goal Depression scree tyler. Due on due Goal Urinalysis due Goal Diabetes screening. Due on O ct due Goal ECG. Due on due Goal Hep A. Due on du e Goal Colonoscopy. Due on due Goal Zoster vaccine ( ). Due on due Goal Diabetes screening. Due on S due Goal ECG. Due on due Goal Influenza vaccine. Due on Se due Goal Depression scree tyler. Due on due Goal Tdap due Goal PRAPARE ASSESSMENT. Due on S due Goal Mammogram. Due on 0 due Goal Tdap Vaccine. Due on 2031 due Goal Lipid panel. Due on due Goal Urinalysis due Goal Diabetes screening. Due on S due Goal Tdap due Goal Mammogram. Due on 0 due Goal PRAPARE ASSESSMENT. Due on S due Goal ECG. Due on due Goal Tdap Vaccine. Due on 2031 due Goal Colonoscopy. Due on due Goal Urinalysis due Goal Lipid panel. Due on due Goal Zoster vaccine ( ). Due on due Goal Depression scree tyler. Due on due Goal Influenza vaccine. Due on due Goal Lifestyle education regardin g diet completed Goal Hep A. Due on du e Goal Zoster vaccine ( ). Due on due Goal Influenza vaccine. Due on due Goal PRAPARE ASSESSMENT. Due on due Goal Lipid panel. Due on due Goal Colonoscopy. Due on due Goal Depression scree tyler. Due on due Goal Tdap due Goal Urinalysis due Goal Mammogram. Due on 0 due Goal ECG. Due on due Goal Tdap Vaccine. Due on 2031 due Goal Diabetes screening. Due on A due Goal Lifestyle education regardin g diet completed Goal Urinalysis due Goal Tdap Vaccine. Due on 2031 due Goal ECG. Due on due Goal Influenza vaccine. Due on due Goal Lipid panel. Due on due Goal Diabetes screening. Due on due Goal Colonoscopy. Due on due Goal Zoster vaccine ( 1st). Due on due Goal Tdap due Goal PRAPARE ASSESSMENT. Due on due Goal Mammogram. Due on due Goal Depression scree tyler. Due on due Goal Lipid panel. Due on due Goal Tdap Vaccine. Due on 2031 due Goal PRAPARE ASSESSMENT. Due on due Goal Mammogram. Due on 0 due Goal Zoster vaccine ( 1st). Due on due Goal Depression scree tyler. Due on due Goal ECG. Due on due Goal Influenza vaccine. Due on due Goal Tdap due Goal Diabetes screening. Due on due Goal Colonoscopy. Due on due Goal Urinalysis due Goal Zoster vaccine ( 1st). Due on due Goal Depression scree tyler. Due on due Goal PRAPARE ASSESSMENT. Due on due Goal Tdap due Goal Diabetes screening. Due on due Goal Mammogram. Due on 0 due Goal Tdap Vaccine. Due on 2031 due Goal Colonoscopy. Due on due Goal Urinalysis due Goal ECG. Due on due Goal Influenza vaccine. Due on due Goal Lipid panel. Due on due Goal Hep A. Due on du e Goal Depression scree tylre. Due on due Goal Lipid panel. Due on due Goal Tdap due Goal PRAPARE ASSESSMENT. Due on due Goal Urinalysis due Goal Mammogram. Due on 0 due Goal Diabetes screening. Due on due Goal Colonoscopy. Due on due Goal Tdap Vaccine. Due on 2031 due Goal Zoster vaccine ( ). Due on due Goal Influenza vaccine. Due on due Goal ECG. Due on due Goal Dietary manageme nt education, guidance, and counseling completed Goal Influenza vaccine. Due on due Goal Tdap Vaccine. Due on 2031 due Goal ECG. Due on due Goal Zoster vaccine ( ). Due on due Goal Lipid panel. Due on due Goal Mammogram. Due on 0 due Goal PRAPARE ASSESSMENT. Due on due Goal Depression scree tyler. Due on due Goal Urinalysis due Goal Colonoscopy. Due on 033 due Goal Diabetes screening. Due on due Goal Tdap due Goal PRAPARE ASSESSMENT. Due on due Goal Colonoscopy. Due on due Goal ECG. Due on due Goal Diabetes screening. Due on due Goal Influenza vaccine. Due on due Goal Hep A. Due on du e Goal Depression scree tyler. Due on due Goal FOBT. Due on due Goal Mammogram. Due on 0 due Goal Lipid panel. Due on due Goal Tdap Vaccine. Due on 2031 due Goal Zoster vaccine ( 1st). Due on due Goal Urinalysis due Goal Tdap due Goal Dietary manageme nt education, guidance, and counseling completed Goal Mammogram. Due on 0 due Goal Influenza vaccine. Due on due Goal PRAPARE ASSESSMENT. Due on due Goal Colonoscopy. Due on due Goal Lipid panel. Due on due Goal Tdap Vaccine. Due on 2031 due Goal FOBT. Due on due Goal Zoster vaccine ( 1st). Due on due Goal Depression scree tyler. Due on due Goal Tdap due Goal ECG. Due on due Goal Urinalysis due Goal Diabetes screening. Due on due Goal Dietary manageme nt education, guidance, and counseling completed Goal Colonoscopy. Due on 023 due Goal Diabetes screening. Due on due Goal Tdap Vaccine. Due on 2031 due Goal Lipid panel. Due on due Goal ECG. Due on due Goal PRAPARE ASSESSMENT. Due on due Goal Mammogram. Due on due Goal Hep A. Due on du e Goal Influenza vaccine. Due on due Goal Urinalysis due Goal Tdap due Goal FOBT. Due on due Goal Depression scree tyler. Due on due Goal Zoster vaccine ( ). Due on due Goal Dietary manageme nt education, guidance, and counseling completed Goal Hep A. Due on du e Goal Tdap Vaccine. Due on 2031 due Goal FOBT. Due on due Goal Lipid panel. Due on due Goal Depression scree tyler. Due on due Goal Urinalysis due Goal ECG. Due on due Goal Tdap due Goal PRAPARE ASSESSMENT. Due on due Goal Influenza vaccine. Due on due Goal Diabetes screening. Due on due Goal Mammogram. Due on 0 due Goal Colonoscopy. Due on due Goal Zoster vaccine ( ). Due on due Goal Zoster vaccine ( ). Due on due Goal Influenza vaccine. Due on due Goal Mammogram. Due on 0 due Goal ECG. Due on due Goal Urinalysis due Goal FOBT. Due on due Goal Lipid panel. Due on due Goal Depression scree tyler. Due on due Goal PRAPARE ASSESSMENT. Due on due Goal Colonoscopy. Due on due Goal Diabetes screening. Due on due Goal Tdap due Goal Dietary manageme nt education, guidance, and counseling completed Goal FOBT. Due on due Goal Lipid panel. Due on due Goal Colonoscopy. Due on due Goal Influenza vaccine. Due on due Goal Zoster vaccine ( 1st). Due on due Goal Diabetes screening. Due on due Goal Tdap due Goal Depression scree tyler. Due on due Goal Urinalysis due Goal ECG. Due on due Goal PRAPARE ASSESSMENT. Due on due Goal Mammogram. Due on 0 due Goal Dietary manageme nt education, guidance, and counseling completed Goal Depression scree tyler. Due on due Goal Mammogram. Due on 0 due Goal Colonoscopy. Due on due Goal Diabetes screening. Due on due Goal Zoster vaccine ( 1st). Due on due Goal Lipid panel. Due on due Goal Influenza vaccine. Due on due Goal PRAPARE ASSESSMENT. Due on due Goal Tdap due Goal Urinalysis due Goal FOBT. Due on due Goal ECG. Due on due Goal Dietary manageme nt education, guidance, and counseling completed Goal PRAPARE ASSESSMENT. Due on due Goal Colonoscopy. Due on due Goal Lipid panel. Due on due Goal Influenza vaccine. Due on due Goal Tdap due Goal Depression scree tyler. Due on due Goal Zoster vaccine ( ). Due on due Goal FOBT. Due on due Goal Urinalysis due Goal Mammogram. Due on 0 due Goal Diabetes screening. Due on due Goal ECG. Due on due Goal Dietary manageme nt education, guidance, and counseling completed Goal PRAPARE ASSESSMENT. Due on due Goal Depression scree tyler. Due on due Goal Lipid panel. Due on due Goal Influenza vaccine. Due on due Goal FOBT. Due on due Goal Colonoscopy. Due on due Goal Tdap due Goal Mammogram. Due on 0 due Goal Diabetes screening. Due on due Goal Urinalysis due Goal ECG. Due on due Goal Zoster vaccine ( ). Due on due Goal Weight-reducing diet educati on completed Goal Tdap. Due on due Goal Diabetes screening. Due on due Goal FOBT. Due on due Goal Lipid panel. Due on due Goal Depression scree tyler. Due on due Goal Colonoscopy. Due on due Goal Zoster vaccine ( 1st). Due on due Goal ECG. Due on due Goal Influenza vaccine. Due on No v due Goal PRAPARE ASSESSMENT. Due on N due Goal Mammogram. Due on 0 due Goal Urinalysis due Goal Dietary manageme nt education, guidance, and counseling completed Goal Influenza vaccine. Due on Oc due Goal Tdap. Due on due Goal ECG. Due on due Goal Urinalysis due Goal Lipid panel. Due on due Goal FOBT. Due on due Goal PRAPARE ASSESSMENT. Due on O due Goal Colonoscopy. Due on due Goal Mammogram. Due on 0 due Goal Zoster vaccine ( ). Due on due Goal Diabetes screening. Due on O due Goal Depression scree tyler. Due on due Goal Dietary manageme nt education, guidance, and counseling completed Goal Lipid panel. Due on due Goal Zoster vaccine ( 1st). Due on due Goal FOBT. Due on due Goal Depression scree tyler. Due on due Goal Mammogram. Due on 0 due Goal Colonoscopy. Due on due Goal Tdap. Due on due Goal PRAPARE ASSESSMENT. Due on O due Goal Diabetes screening. Due on O due Goal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 obesity. The hypertension is exacerbated by nothing. Pertinent negatives include chest pain, dyspnea, headache, irregular heartbeat/palpitations and transient weakness. Additional information: Meera hypertension It is currently getting worse. Risk factors include age over age 60, inactive lifestyle and obesity. The hypertension is exacerbated by missed dose today. Pertinent negatives include chest pain, diaphoresis, dyspnea, headache, irregular heartbeat/palpitations and transient weakness. Additional information: Meera URI The symptoms beg an 2 days ago. The symptoms have remained unchanged. The client presents with chills and earache. The client does not present with abdominal pain, anorexia, arthralgia, back pain, cough, diarrhea, fever, generalized weakness, headache, lymphadenopathy, myalgia, nausea, pharyngitis or vomiting. The client denies any aggravating factors. Interventions that have been tried have not provided any relief. The illness is associated with malaise. The client denies diaphoresis, dyspnea, hoarseness and rash. Additional information: Ahmet squires. HTN Patient here for HTN. Patient states since she's restarted taking her Metoprolol she's started having dizziness, chest tightness, and hot flashes. States surgery scheduling coordinator told her not to take it because he pulse was below 60 -- ANDRY May. HTN Patient here for HTN. Patient BP 162/96 -- LPN. Lalo hypertension It is currently getting worse. Risk factors include age over age 60, inactive lifestyle and obesity. The hypertension is exacerbated by nothing. Pertinent negatives include chest pain, dyspnea, headache, irregular heartbeat/palpitations and transient weakness. Additional information: Meera SRP SRP F/U HTN BP today 124/74F migue: RefusedStates she is having bladder sling surgery tomorrow.//[place]ina GAYTAN hypertension It is currently stable. Risk factors include age over age 60, inactive lifestyle and obesity. The hypertension is exacerbated by nothing. Pertinent negatives include chest pain, dyspnea, headache, irregular heartbeat/palpitations and transient weakness. Additional information: Ahmet [facility] SRP SRP filling filling periodic exam periodic exam ER Follow-up ER follow-up, we nt in saturday, for chest/back pain radiating into her neck/face. States BP was high during hospital visit.They kept her one night and was released saturday.Said they think it might be stomach ulcers so she wants to get EGDSaid they wanted to put her on a medication but she refused until she saw provider.//[place] GAY[place]AN[place] [facility] [place] to rule out cardiac etiology for epigastric pain radiating into chest. Advised per hospitalist of concern stomach ulcers could be returning. Patient diagnosed with stomach ulcers >10 years ago, notes she recently experienced the pain and nausea which has returned since discharge. Continues pantoprazole, concerned she may need a repeat EGD. [facility] Hypertension It is currently stable. Risk factors include age over age 60, inactive lifestyle and obesity. The hypertension is exacerbated by nothing. Pertinent negatives include chest pain, diaphoresis, dyspnea, irregular heartbeat/palpitations and transient weakness. Additional information: [facility] hyperlipidemia Risk factors inc lude age over 50 and sedentary life style. The patient is adhering to medication and follow-up for their hyperlipidemia. Hyperlipidemia management includes statins. Pertinent negatives include chest pain, diaphoresis, dyspnea, palpitations and transient weakness. Additional information: [facility] Anemia Type of anemia w as acquired for deficiency anemia (iron deficient). The problem is stable. There are no associated symptoms. Additional information: [facility] F/U BP 152/82 todayComp laints of jaw pain. Saw dentist and had x-ray dentist said he saw nothing wrong with jaw.//Carolina GAYTAN depression This is a follow up visit. Related symptoms are fairly controlled. The patient does not present with anxious/fearful thoughts, depressed mood or thoughts of or suicide. The depression is aggravated by conflict or stress. The patient's relieving factors are medication. The patient denies any sweating. Additional information: Ahmet GOVEA. Lab Draw Attempt to draw labs from left hand with no success. Patient tolerated well. Sent her to [facility] with req.//Carolina GAYTAN filling filling Dental limited 3mo HTN Pt here for 3mon BP check. Pt does not monitor BP at home. Pt had labs drawn 12/19 that were abnormal. Pt has not had them rechecked. Had colonoscopy completed. Pt sees Kelly for OBGYN. She told pt she would complete mammogram after her shoulder heals. Pt has c/o not being able to sleep. Wants to discuss. No other problems today. -Willis Lab draw Labs drawn on 2n d attempt RAC. 2x2 and bandage applied. //LUCILA Yu hypertension It is currently stable. Risk factors include age over age 60, inactive lifestyle and obesity. Pertinent negatives include chest pain, dyspnea, fatigue, headache, hematuria, irregular heartbeat/palpitations and transient weakness. Additional information: Ahmet GOVEA Anemia Type of anemia w as acquired for acute posthemorrhagic. Relevant medical history includes Surgery 12-19-22. The patient's anemia has not been managed with any medical interventions. Pertinent negatives include abdominal pain, chest pain, depression, dizziness, dyspnea, fatigue, headache and weight loss. Additional information: Ahmet GOVEA. Hearing loss (peds) Onset: 42 ye ars ago. The hearing loss occurs in the right ear more than the left ear. The frequency is constant. The problem is worsening. Context: meningitis age 19. Denies aggravating factors. Denies relieving factors. Associated symptoms include ringing in ears. Pertinent negatives include ability to pop ears, ear pressure and vertigo. Additional information: Ahmet GOVEA. Requesting referral Presents for request for referral. States due to her insurance she needs referral to ENT for hearing aids. Denies other problems/concerns. Jarad Cline RNLoss of hearing at age 19 due to meningitis, worse on the right ear. Ahmet GOVEA hypertension It is currently stable. Risk factors include age over age 60, inactive lifestyle and obesity. The hypertension is exacerbated by nothing. Pertinent negatives include chest pain, dyspnea, headache, irregular heartbeat/palpitations and transient weakness. Additional information: Reduction of beta blayne per her cardiology due to lower heart rate, will continue to reduce until off. Ahmet GOVEA Injury This is an initi al visit. The injury occurred 2 weeks ago. Symptoms related to the injury have improved. The trauma resulted from twisting/pivoting in the street approximately 2 weeks ago. The injury was not work related. Date of last tetanus: 07/12/2022. The patient has pain in the right, anterior knee with radiation to the none.Previous diagnostic studies and/or treatments that have been performed/administered include. Previous diagnostic studies and/or treatments that have not been performed/administered include radiographs. The injury is aggravated by movement, standing and walking. The patient had a response to rest. The injury is associated with localized swelling. The patient denies any decreased mobility, generalized weakness and headache. Additional information: Ahmet GOVEA. HTN f/u Pt here today fo r 3 month HTN check. Labs are UTD, as well as woman's health and colonoscopy. Pt states cardio is cutting out the metoprolol to half tab HS for 2 weeks and then stopping medication once 2 weeks are complete. Voices no other issues or concerns at this time. Roxanne. BP Check Pt states she mo nitors BP every once in awhile . Readings have been 130s/90s. Denies any dizzy spells. No other concerns. Willis hypertension It is currently stable. Risk factors include age over age 60, inactive lifestyle and obesity. The hypertension is exacerbated by nothing. Pertinent negatives include chest pain, dyspnea, irregular heartbeat/palpitations and transient weakness. Additional information: Ahmet [employer] [employer] hyperlipidemia Risk factors inc lude age over 50 and sedentary life style. The patient is adhering to medication and follow-up for their hyperlipidemia. The patient is not adhering to diet and exercise for their hyperlipidemia. Hyperlipidemia management includes statins. Pertinent negatives include chest pain, dizziness, dyspnea, myalgia, palpitations and transient weakness. Additional information: Ahmet GOVEA. asthma The initial visi t date was 09/21/2022. The symptoms have stabilized. Aggravating factors include respiratory infection. Symptom relief is noted with beta-agonist inhaler and LA beta-agonist/steroid inhaler. There are no associated symptoms. Pertinent negatives include irregular heartbeat/palpitations. Additional information: Ahmet GOVEA. depression This is a follow up visit. Related symptoms are controlled. The patient does not present with anxious/fearful thoughts, depressed mood or thoughts of or suicide. The depression is aggravated by conflict or stress. The patient's relieving factors are medication. Additional information: Ahmet GOVEA. Low BP Presents with c/ o an episode on Saturday where she was dizzy, lightheaded, just didn't feel good and took BP and it was 90's/50's. States it lasted about 5 hrs. Reports that she is still a little dizzy today. Jarad Cline RNComplaints of low BP and dizziness since this weekend, concerned may be due to her BP medication being too strong. Notes symptoms began shortly after starting HCTZ. Would like new referral placed for ganglion cyst of right middle finger, notes continues to grow and cause discomfort. Would like referral for repeat colonoscopy, last colonoscopy believed to be greater than [address] Kim. Continues to have pain to right arm after fall in shower over a month ago. Notes pain worse while laying on side at night. Increase at night while lying on arm. Treated with OTC medication. [facility] hypertension It is currently improving. Risk factors include age over age 60, inactive lifestyle and obesity. The hypertension is exacerbated by nothing. Pertinent negatives include chest pain, dyspnea, headache, irregular heartbeat/palpitations and transient weakness. Additional information: Ahmet [facility] f/u HTN Pt here for f/u HTN. Pt c/o R de la torre pain and lump d/t fall 3 weeks ago. Pt also c/o R middle finger cyst. Pt denies any other issues or concerns. Pt denies having Colonoscopy in past. LUCILA HawkinsInsurance starting this week agreeable to colonoscopy at that time. Complaints of injury to left lower leg hit on object while at work 2-3 weeks ago lump and bruising to area tender. Bruising improved, lump remains present. Fell in shower this week after slipping, notes right arm strain. Did take ibuprofen once for pain however continues to have pain to the area with movement. No deformity to right arm no decreased range of motion numbness or weakness. Remains on Eliquis blood thinner at this time. RGonzales [facility] Possible UTI Presents for pos sible UTI, reports frequency, urgency and burning for about 3 days hx of frequent UTI's. Also would like her throat checked feels like she has something stuck in it. Jarad Mcdowell noted. Here for possible UTI, then wants to check throat for possible foreign body. Able to control saliva. States she chronically feels as if something is stuck in her throat. Had discussed with her PCP who advised to chew food completely. Also states her headache continues and wants to talk further about her BP medication. Recently saw her normal PCP last week and has f/u appt with him in 3 weeks. States she is taking medication daily in the mornings. Instructed to continue plan of care, only been 1 week; and to keep f/u appt with her PCP. UTI Onset: 3 Days. T he severity of the problem is mild. The problem has not changed. The symptoms are intermittent. Presenting/Initial symptoms include dysuria, flank pain, frequency, lower back pain and urgency. Symptoms are not associated with diabetes. Symptoms are relieved by increased fluids. Associated symptoms include dysuria, flank pain, frequency, nocturia and retention. Pertinent negatives include abdominal pain, fatigue, fever, hesitancy, nausea, rash or vomiting. F/U HTN Pt here for f/u BP recheck. States takes meds every day as prescribed; denies any SE. Takes BP readings sometimes at home. BP elevated- 150/84; states she has not taken her meds this morning yet. Denies any other issues/concerns at this time. //C LUCILA Mace hypertension It is currently improving. Risk factors include age over age 60, inactive lifestyle and obesity. The hypertension is exacerbated by anxiety and stress. Pertinent negatives include chest pain, dyspnea, fatigue and headache. Additional information: Ahmet GOVEA Flu Vaccine Pt declines flu vaccine today. //C LUCILA Mace hypertension It is currently getting worse. Risk factors include age over age 60, inactive lifestyle and obesity. The hypertension is exacerbated by anxiety and stress. Pertinent negatives include chest pain, diaphoresis, dyspnea, fatigue, headache, transient weakness and visual disturbances. Additional information: Ahmet GOVEA f/u congestion Pt states sx hav e decreased since last visit. States she has just a little chest congestion, sinus drainage, and headaches now. Denies cough. States mucus is clear when she spits it out. 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 Is seeing them again after this appt. Franklin Ma RN Nasal congestion The obstruction occurs in both nostrils. The patient describes it as partial with thin nasal drainage. The problem fluctuates. Symptom is aggravated by allergies, weather and temperature changes. Relieving factors include nasal decongestants. Associated symptoms include nasal drainage (clear) and seasonal allergies. Pertinent negatives include deviated septum, facial pain, foreign body and headache. Additional information: Ahmet GOVEA. sick visit Pt here d/t head aches, cough, tightness in her chest and lower back pain, states these symptoms started 3 days. Pt states she has been alternating Tylenol and Ibuprofen but is not getting much relief. Pt denies any other symptoms. LUCILA Hawkins URI The symptoms beg an 2 to 3 days ago. The patient presents with back pain, chills, cough, fatigue, fever, headache and pharyngitis. The patient does not present with abdominal pain, arthralgia, diarrhea, earache, generalized weakness, lymphadenopathy, myalgia, nausea or vomiting. The symptoms are aggravated by exertion and lack of sleep. Interventions that have been tried have not provided any relief. The illness is associated with malaise. The patient denies change in appetite, change in sleep cycle, diaphoresis, dyspnea, hoarseness, lightheadedness, neck stiffness and rash. Additional information: Ahmet GOVEA. ER follow up Patient here for ER follow up. Patient had chest discomfort. Patient was told it was her asthma. Patient has not been at work since Saturday. Patient is having SOB when she is talking. Also b/p is still elevated. Andry Rivas.BP elevated at ER and in office today, notes she does take her losartan at night and metoprolol she cut her dose down to current dose on her own due to side effects caused at previous levels started by her surgery scheduling coordinator. Recent stop of diuretic due to reduced renal function. Diagnosed with asthma exacerbation in ER would like to refill her inhaler and nebulizer treatment, request spacer was offered spacer in ER and not given one .Notes she is currently taking Spiriva that was not taken by her friend and given to her. Has not filled her own Spriva this year. Symptoms improved following ER visit. Would like codeine cough syrup ordered PRN. Ahmet GOVEA F/U Kidney Patient her for follow up. GFR rate in 40's, getting checked weekly to monitor.//Carolina GAYTANNotes she has stopped her diuretic medication as previously discussed. Continues to have occasional episodes of nausea, vomiting and diarrhea. Notes she has not heard fro nephrology office regarding follow up. Recently pulled tooth to left upper with no antibiotic use. Notes she is anxious as she will soon be without health insurance. No other recent medication changes. Taking magnesium from surgery scheduling coordinator for 6 months without issues. Ahmet GOVEA Lab Draw Lab draw right a ntecube. 1 attempt successful. Patient tolerated it well.//Carolina GAYTAN Labs Labs drawn x1 at tempt RAC, pt tolerated well.//Sherrie GAYTAN. F/U Pt is here for F /U R/T kidney issues. Pt states she has been experiencing lower back pain that radiates to lower abdomen. States she has noticed increased urination, and has intermittent incontinence. States she has incontinence, but also has a hard time initiating urination. Pt is also concerned about right middle finger, states her finger is enlarged. Denies any other concerns at this time. Denies depression and anxiety. Denies smoking.//Sherrie GAYTAN.Follow [place] [facility] for complaints of diarrhea for 2 days, nausea for 1 day, lower back and pelvic pain radiating down left leg. Was notified her kidney function had worsened and scheduled for outpatient renal ultrasound which has been completed. Notes her nausea and diarrhea have resolved. Pain to back resolved, pelvic pain present with palpation. Advised per ER to follow up with PCP. No medication taken for symptoms at home. Admits to chronic back and leg pain. Occasional use of NSAIDs none recently. Missed her diuretic dose today. No prior history of renal dysfunction or renal stones. Ahmet GOVEA dl dl DE DE DE DED de hypertension It is currently stable. Risk factors include age over age 60, inactive lifestyle and obesity. The hypertension is exacerbated by nothing. Pertinent negatives include chest pain, dyspnea, fatigue, headache, irregular heartbeat/palpitations, transient weakness and visual disturbances. Additional information: Ahmet GOVEA Lab Draw Labs drawn from left antcube 1 attempt successful. Patient tolerated well.//Carolina GAYTAN F/U HTN BP today 112/72. Says no other health issues. States she had last colonoscopy at [facility] over 10 years ago. Contacted [facility], they said last colonoscopy was done in 2005.//Carolina GAYTANNeeds refill of her gabapentin, uncertain of when started, believes this was started by Luz Villaseñor for nerve pain. Notes medication well tolerated and working well. Ahmet GOVEA annual exam Currently pregna nt: no. : 2. Parity: Term: 2. Livin. The patient states she uses hysterectomy and menopausal for control. Her menses is absent. Negative for dysmenorrhea and menorrhagia. Negative for: breast discharge, breast lump(s), breast pain and breast self exam.Postmenopausal: Type: natural. The patient does not use tobacco. She does not drink alcohol. Additional information: Patient is here for annual exam. Had a total hysterectomy due to abnormal paps. C/O skin tag in the vaginal area and desires to have it removed today.. GERD The problem is i mproving. Aggravating factors include food. Symptoms are relieved by proton pump inhibitors. Associated symptoms include back pain. Pertinent negatives include bloating, blood in stool, diaphoresis, dizziness, dyspnea and vomiting. Additional information: [facility] hypertension It is currently stable. Risk factors include age over age 60, inactive lifestyle and obesity. The hypertension is exacerbated by nothing. Pertinent negatives include chest pain, diaphoresis, dyspnea, headache, irregular heartbeat/palpitations, transient weakness and visual disturbances. Additional information: [facility] F/U UTI No longer having UTI symptoms. Patient refusing to give urine due to not having enough money .Complains of stiff neck. No other issues.//[facility] RNComplaints of neck pain radiating into bilateral shoulders. Worsens with movement and pressure to the shoulders. Denies injury, notes she has a history of polyneuropathy and this is unchanged. Concerned may be due to neck issues.Kicked a wet floor sign with left foot 2 weeks ago and injured left great toes. Bruising and swelling have resolved, continues to have mild pain on occasion to the toe. Visited with cardiology Dr. Beard last month. informed he will continue magnesium and potassium at this time. Stopped ASA, continued elaquis. [facility] Allergies Symptoms are mil d and improving. The allergic symptoms are worsened by allergens. Symptoms are improved with allergy meds with good relief. There are no associated symptoms. The patient denies headache. Additional information: [facility]. hyperlipidemia Risk factors inc lude age over 50 and sedentary life style. The patient is adhering to medication and follow-up for their hyperlipidemia. The patient is not adhering to diet and exercise for their hyperlipidemia. Hyperlipidemia management includes statins. Associated symptoms include joint pain. Pertinent negatives include chest pain, diaphoresis, dizziness, dyspnea, palpitations and transient weakness. Additional information: [facility] depression This is a follow up visit. Related symptoms are well controlled. There is improvement of initial symptoms. The patient reports functioning as not difficult at all. The patient does not present with anxious/fearful thoughts, depressed mood or thoughts of or suicide. The patient denies any aggravating factors. The patient's relieving factors are a good response to medication. The patient denies any headache and sweating. Additional information: Ahmet GARCIA Problem Visit UTI Symptoms Notic ed is 3 days ago, urine was darker. First time this morning it was painful to urinate.Using Phenazopyridine over the counter for UTI symptoms.//Carolina GAYTAN UTI Onset: 3 Days. T he problem has worsened. The symptoms are constant. Presenting/Initial symptoms include burning, dysuria, frequency, hesitancy, suprapubic pain and urgency. Symptoms are associated with recurring urinary tract infections. Pertinent negatives include fever, hematuria, nausea, rash or vomiting. Additional information: Felipe SQUIRES. back pain The problem is s table. It occurs persistently. Location of pain is middle back and lower back.There is no radiation of pain. The patient describes the pain as an ache. Context: no injury. Symptoms are aggravated by sitting and standing. Symptoms are relieved by pain meds/drugs. Additional information: Ahmet GOVEA. depression This is a follow up visit. Related symptoms are controlled. The patient does not present with anxious/fearful thoughts, depressed mood, difficulty concentrating, difficulty falling asleep, difficulty staying asleep or thoughts of or suicide. The patient denies any aggravating factors. The patient's relieving factors are a good response to medication. The patient denies any headache and sweating. Additional information: Ahmet GOVEA. hyperlipidemia Risk factors inc lude age over 50 and sedentary life style. The patient is adhering to medication and follow-up for their hyperlipidemia. Hyperlipidemia management includes statins. Associated symptoms include dizziness. Pertinent negatives include chest pain, claudication, diaphoresis, dyspnea, myalgia, transient weakness and vision loss. Additional information: Ahmet GARCIA Allergies The patient pres ents with itchy eyes. Symptoms are intermittent, moderate and improving. The allergic symptoms are worsened by uncertain of aggravating factors. Symptoms are not improved with antibiotics, allergy meds, desensitization or weather change. The patient is also experiencing cough, dizziness, nasal congestion and nasal drainage. The patient denies chest tightness, coryza, headache, nausea, pharyngitis, post nasal drainage, sinus pain and sneezing. Additional information: Uses ceterizine, stopped flonase, recently finished doxycycline. [address] [employer]. hypertension It is currently stable. The hypertension is exacerbated by nothing. Pertinent negatives include chest pain, claudication, confusion, diaphoresis, dyspnea, headache, transient weakness and visual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 minutes5. No nicotine6. Alcohol in moderation7. Decrease weight8. Follow up: 1 month Related to Hypertension, unspecified type 1. CBC and iron stud ies pending2. Will contact if iron can be discontinued or should continue Related to Acute anemia 1. Take medications as prescribed.2. Continue or consider counseling3. Exercise regularly4. practice good sleep hygiene.5. Well balanced healthy diet6. [place] [facility] [place] suicidal or homicidal ideationsTOLL FREE [phone]. Follow up: 6 months Related to Depression with anxiety Giving encouragement to exercise Related to Body mass index [BMI] 33.0-33.9, adult Lifestyle education regarding di et Related to Body mass index [BMI] 33.0-33.9, adult 1. Take blood pressu re medication daily as prescribed.2. Monitor blood pressure at home regularly and record for next follow up visit.3. Reduce sodium intake to 1 tsp (2300mg) per day maximum 4. Participate in moderate intensity aerobic exercise 5 days per week 30 minutes5. No nicotine6. Alcohol in moderation7. Decrease weight8. Follow up: 3 months Related to Hypertension, unspecified type 1. CBC repeat Related to Acute anemia Dietary management e ducation, guidance, and counseling Related to Body mass index [BMI] 34.0-34.9, adult Giving encouragement to exercise Related to Body mass index [BMI] 34.0-34.9, adult 1. ENT If you have n ot been contacted per specialist office to which you referred to in 2 weeks please contact the [facility] at [phone] and advise triage nurse. Related to Progressive hearing loss, bilateral Giving encouragement to exercise Related to Body mass index [BMI] 33.0-33.9, adult Dietary management e ducation, guidance, and counseling Related to Body mass index [BMI] 33.0-33.9, adult 1. Ice to the area 1 5 minutes 3-4 times per day2. Rest and elevate3. Tylenol ES for discomfort.4. FOLLOW UP: 2 WEEK(s) if not improved Related to Injury of right knee, initial encounter 1. Take blood pressu re medication daily as prescribed.2. Monitor blood pressure at home regularly and record for next follow up visit.3. Reduce sodium intake to 1 tsp (2300mg) per day maximum 4. Participate in moderate intensity aerobic exercise 5 days per week 30 minutes5. No nicotine6. Alcohol in moderation7. Decrease weight8. Follow up: 3 months Related to Hypertension, unspecified type Giving encouragement to exercise Related to Body mass index [BMI] 33.0-33.9, adult Dietary management e ducation, guidance, and counseling Related to Body mass index [BMI] 33.0-33.9, adult 1. follow up with gastro as sche duled Related to Colon cancer screening 1. Take medications as prescribed.2. Diet limit intake of meals high in LDL cholesterol and increase intake of HDL containing foods.3. Increase fiber to 5-10 grams per day4. Exercise at least 30 minutes 3-5 times per week of active exercise5. No nicotine or smoking6. Follow up 6 months. Related to Hyperlipidemia, unspecified hyperlipidemia type 1. increase hydratio n2. Follow up as needed Related to Dizziness 1. Take medications as prescribed.2. Diet limit intake of meals high in LDL cholesterol and increase intake of HDL containing foods.3. Increase fiber to 5-10 grams per day4. Exercise at least 30 minutes 3-5 times per week of active exercise5. No nicotine or smoking6. Follow up 6 months. Related to Hypertension, unspecified type 1. Use inhalers as o rdered2. Report increased use of inhaler3. Avoid cigarette smoke. 4. FOLLOW UP in 6 months5. Return sooner for worsening of symptoms or fever.6. PLEASE ENSURE THAT YOUR INFLUENZA, PNEUMONIA, AND COVID-19 VACCINATIONS ARE UP TO DATE ANNUALLY. Related to Asthma 1. Take medications as prescribed.2. Consider counseling3. Exercise regularly4. practice good sleep hygiene.5. Well balanced healthy diet6. [place] [facility] [place] any suicidal or homicidal ideationsTOLL FREE [phone]. Follow up: 6 months Related to Depression with anxiety Dietary management e ducation, guidance, and counseling Related to Body mass index [BMI] 32.0-32.9, adult Giving encouragement to exercise Related to Body mass index [BMI] 32.0-32.9, adult 1. Referral placed t o gastroenterology If you have not been contacted per specialist office to which you referred to in 2 weeks please contact the [facility] at [phone] and advise triage nurse Related to Colon cancer screening 1. Referral to Ortho pedics If you have not been contacted per specialist office to which you referred to in 2 weeks please contact the [facility] at [phone] and advise triage nurse. Related to Cyst of tendon sheath 1. Take blood pressu re medication daily as prescribed.STOP HCTZ2. Monitor blood pressure at home regularly and record for next follow up visit.3. Reduce sodium intake to 1 tsp (2300mg) per day maximum 4. Participate in moderate intensity aerobic exercise 5 days per week 30 minutes5. Decrease weight8. Follow up: 3 WEEKS Related to Dizziness 1. gentle stretching 2. complete x-ray3. Rest as needed4. ice to area 15 minutes out of every hour while resting in the evenings5. heat to area in morning for 15-20 minutes6. Follow up: as scheduled Related to Arm injuries, right, subsequent encounter Giving encouragement to exercise Related to Body mass index [BMI] 32.0-32.9, adult Dietary management e ducation, guidance, and counseling Related to Body mass index [BMI] 32.0-32.9, adult 1. Not[facility] for s tart of insurance in order to refer for colonoscopy Related to Screening for colon cancer 1. gentle stretching 2. PR[place]SON[place] ORDEREDTYLENOL PRN3. Rest as needed4. ice to area 15 minutes out of every hour while resting in the evenings5. heat to area in morning for 15-20 minutes6. Follow up: 2 WEEKS IF NOT IMPROVED Related to Strain of right upper arm, initial encounter Both COVID-19 vaccin ation and annual influenza vaccinations are recommended by [facility] to those eligible, you may recieve them at your appointment today, if you choose to forgo vaccination today you can call to schedule via outpatient vaccination clinic at [phone]. 1. COVID-19 booster call to schedule2. Influenza vaccination- call to schedule Related to No vaccination-pt refuse 1. tyelnol prn2. NSA ID therapy3. Rest as needed4. ice to area 15 minutes out of every hour while resting in the evenings5. Follow up: 2 weeks if not resolved Related to Hematoma and contusion 1. Take blood pressu re medication daily as prescribed.ADDED HCTZ TO MEDS2. Monitor blood pressure at home regularly and record for next follow up visit.3. Reduce sodium intake to 1 tsp (2300mg) per day maximum 4. Participate in moderate intensity aerobic exercise 5 days per week 30 minutes5. No nicotine6. Alcohol in moderation7. Decrease weight8. Follow up: 1 month Related to Hypertension, unspecified type Giving encouragement to exercise Related to Body mass index [BMI] 32.0-32.9, adult Dietary management e ducation, guidance, and counseling Related to Body mass index [BMI] 32.0-32.9, adult 1. increase oral flu ids/water intake2. Empty bladder when has urge to urinate; do not hold urine. 3. Wipe front to back4. Change undergarments when wet/soiled5. Call if fever/chills or go to ER for any severe abd pain/worsening symptoms Related to Dysuria Giving encouragement to exercise Related to Body mass index [BMI] 33.0-33.9, adult Dietary management e ducation, guidance, and counseling Related to Body mass index [BMI] 33.0-33.9, adult Both COVID-19 vaccin ation and annual influenza vaccinations are recommended by [facility] to those eligible, you may recieve them at your appointment today, if you choose to forgo vaccination today you can call to schedule via outpatient vaccination clinic at [phone]. 1. COVID-19 booster call to schedule2. Influenza vaccination- call to schedule when available Related to No vaccination-pt refuse 1. Take blood pressu re medication daily as prescribed.PLEASE ENSURE YOU TAKE YOUR MEDICATION PRIOR TO YOUR NEXT APPOINTMENT2. Monitor blood pressure at home regularly and record for next follow up visit.3. Reduce sodium intake to 1 tsp (2300mg) per day maximum 4. Participate in moderate intensity aerobic exercise 5 days per week 30 minutes5. No nicotine6. Alcohol in moderation7. Decrease weight8. Follow up: 1 month Related to Hypertension, unspecified type Giving encouragement to exercise Related to Body mass index [BMI] 33.0-33.9, adult Dietary management e ducation, guidance, and counseling Related to Body mass index [BMI] 33.0-33.9, adult 1. fluticasone as or dered2. follow up 2 weeks Related to Allergic rhinitis, unspecified seasonality, unspecified trigger Both COVID-19 vaccin ation and annual influenza vaccinations are recommended by [facility] to those eligible, you may recieve them at your appointment today, if you choose to forgo vaccination today you can call to schedule via outpatient vaccination clinic at [phone]. 1. COVID-19 booster call to schedule2. Influenza vaccination- call to schedule when available Related to No vaccination-pt refuse 1. Take blood pressu re medication daily as prescribed.MOVE LOSARTAN TO AM DOSE CONTINUE TO TWICE DAILY METOPROLOL2. Monitor blood pressure at home regularly and record for next follow up visit.3. Reduce sodium intake to 1 tsp (2300mg) per day maximum 4. Participate in moderate intensity aerobic exercise 5 days per week 30 minutes5. No nicotine6. Alcohol in moderation7. Decrease weight8. Follow up: 2 WEEKS Related to Hypertension, unspecified type Giving encouragement to exercise Related to Body mass index [BMI] 33.0-33.9, adult Weight-reducing diet education R elated to Body mass index [BMI] 33.0-33.9, adult 1. Rest and hydrate2 . Over the counter medications for symptoms control3. Follow up in 1 week if symptoms have not improved4. Seek immediate medical attention for chest pain or shortness of breath. Related to Upper respiratory tract infection, unspecified type Giving encouragement to exercise Related to Body mass index [BMI] 32.0-32.9, adult Dietary management e ducation, guidance, and counseling Related to Body mass index [BMI] 32.0-32.9, adult 1. Take blood pressu re medication daily as prescribed.INCREASE LOSARTAN TO 100MG2. Monitor blood pressure at home regularly and record for next follow up visit.3. Reduce sodium intake to 1 tsp (2300mg) per day maximum 4. Participate in moderate intensity aerobic exercise 5 days per week 30 minutes5. No nicotine6. Alcohol in moderation7. Decrease weight8. Follow up: 1 months Related to Hypertension, unspecified type 1. Use inhaler as or dered2. Report increased use of inhaler3. Avoid cigarette smoke. 4. FU in 6 months5. Return sooner for worsening of symptoms or fever.6. PLEASE ENSURE THAT YOUR INFLUENZA, PNEUMONIA, AND COVID-19 VACCINATIONS ARE UP TO DATE ANNUALLY. Related to Asthma Giving encouragement to exercise Related to Body mass index [BMI] 33.0-33.9, adult Dietary management e ducation, guidance, and counseling Related to Body mass index [BMI] 33.0-33.9, adult 1. Reduce GABAPENTIN TO 100MG FOR 1-2 WEEKS PRIOR TO STOPPINGINCREASE PANTOPRAZOLE TO 40MG DAILY2. Do not eat 2 hours prior to bedtime3. Avoid large meals4. Avoid spicy or greasy foods, avoid other foods which may cause reflux5. famotidine 20mg daily6. Mylanta, Maalox, or RADHA as needed for immediate relief7. CMP- PENDING8. FOLLOW UP 2 WEEKS Related to Renal dysfunction Giving encouragement to exercise Related to Body mass index [BMI] 33.0-33.9, adult Lifestyle education regarding di et Related to Body mass index [BMI] 33.0-33.9, adult 1. CMP, UA pending2. Ultrasound results requested3. Stop triamterene/hctz4. Stop potassium5. Referral to nephrology6. Follow up 1 week7. Push fluids If you have not been contacted per specialist office to which you referred to in 2 weeks please contact the [facility] at [phone] and advise triage nurse. Related to Renal dysfunction Lifestyle education regarding di et Related to Body mass index [BMI] 32.0-32.9, adult Giving encouragement to exercise Related to Body mass index [BMI] 32.0-32.9, adult 1. Tylenol for pain2 . gentle stretching3. Referral will be placed to orthopedics for follow up If you have not been contacted per specialist office to which you referred to in 2 weeks please contact the [facility] at [phone] and advise triage nurse. Related to Cyst of tendon sheath 1. gentle stretching 2. Gabapentin as ordered3. Rest as needed4. ice to area 15 minutes out of every hour while resting in the evenings5. heat to area in morning for 15-20 minutes6. Follow up: 3 months Related to Cervical radiculopathy 1. Take blood pressu re medication daily as prescribed.2. Monitor blood pressure at home regularly and record for next follow up visit.3. Reduce sodium intake to 1 tsp (2300mg) per day maximum 4. Participate in moderate intensity aerobic exercise 5 days per week 30 minutes5. No nicotine6. Alcohol in moderation7. Decrease weight8. Follow up: 3 months Related to Hypertension, unspecified type Giving encouragement to exercise Related to Body mass index [BMI] 32.0-32.9, adult Lifestyle education regarding di et Related to Body mass index [BMI] 32.0-32.9, adult Discussed condyloma in detail. Treatment with TCA completed today. Encouraged to monitor and if persistent then RTC 3-4 weeks. Patient states understanding. Related to Condyloma acuminatum Encouraged monthly B SE. Recommend calcium 1000mg QD. Encouraged good dietary intake and exercise. Laboratory specimens sent to lab. Patient to call in 2 weeks if desires results. Related to Encounter for gynecological examination (general) (routine) without abnormal findings Giving encouragement to exercise Related to Body mass index [BMI] 32.0-32.9, adult Dietary management e ducation, guidance, and counseling Related to Body mass index [BMI] 32.0-32.9, adult 1. tylenol or ibupro fen as needed2. Rest as needed3. follow up 2-4 weeks if not resolved. Related to Injury of toe on left foot, initial encounter 1. Medication as dir ected2. Follow up 3 months Related to Neuropathy 1. gentle stretching Amena neck exercises as discussed2. NSAID therapy3. Rest as needed4. ice to area 15 minutes out of every hour while resting in the evenings5. heat to area in morning for 15-20 minutes6. Follow up: 3 months Related to Neck pain 1. Medication as directed2. FU 6 months Related to Allergic rhinitis, unspecified seasonality, unspecified trigger 1. Take medications as prescribed.2. Consider counseling3. Exercise regularly4. practice good sleep hygiene.5. 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 Avoid smoking2. D o not eat 2 hours prior to bedtime3. Avoid large meals4. Avoid spicy or greasy foods, avoid other foods which may cause reflux5. medication as ordered6. Follow up 6 months Related to Gastro-esophageal reflux disease without esophagitis 1. Benadryl/Maalox 1 :1 mixture swish and spit 2-3 times per day2. 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 Take medications as prescribed.2. Diet limit intake of meals high in LDL cholesterol and increase intake of HDL containing foods.3. Increase fiber to 5-10 grams per day4. Exercise at least 30 minutes 3-5 times per week of active exercise5. No nicotine or smoking6. Follow up 6 months. Related to Hyperlipidemia, unspecified hyperlipidemia type 1. Take blood pressu re medication daily as prescribed.2. Monitor blood pressure at home regularly and record for next follow up visit.3. Reduce sodium intake to 1 tsp (2300mg) per day maximum 4. Participate in moderate intensity aerobic exercise 5 days per week 30 minutes5. No nicotine6. Alcohol in moderation7. Decrease weight8. Follow up: 3 months Related to Hypertension, unspecified type Giving encouragement to exercise Related to Body mass index [BMI] 32.0-32.9, adult Lifestyle education regarding di et Related to Body mass index [BMI] 32.0-32.9, adult 1. Antibiotic as pre scribed, finish all2. Report worsening condition or if symptoms do not improve as expected Related to Acute UTI 1. Use inhalers as o rdered2. Report increased use of inhaler3. Avoid cigarette smoke. 4. FU PCP in 1week if symptoms are not resolved5. Return sooner for worsening of symptoms or fever. Related to Upper respiratory tract infection, unspecified type 1. magnesium and pot assium drawn today2. Will refill medications3. Follow up with cardiology next month as scheduled. Related to Atrial fibrillation, unspecified type 1. Take medications as prescribed.2. Diet limit intake of meals high in LDL cholesterol and increase intake of HDL containing foods.3. Exercise at least 30 minutes 5 times per week of active exercise4. Avoid smoke and/or quit smoking5. Follow up 3 months. Related to Hyperlipidemia, unspecified hyperlipidemia type 1. Take medications as prescribed.2. Continue or consider counseling3. Exercise regularly4. practice good sleep hygiene.5. 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 Use medication as ordered2. Report increased symptoms3. Avoid allergens 4. FU in 3 months5. Return sooner for worsening of symptoms or fever. Related to Allergic rhinitis, unspecified seasonality, unspecified trigger 1. Medication as directed2. FU 3 months Related to Chronic low back pain, unspecified back pain laterality, unspecified whether sciatica present 1. No smoking2. Do n ot eat 2 hours prior to bedtime3. Avoid large meals4. Avoid spicy or greasy foods, avoid other foods which may cause reflux5. Medications as prescribed6. Follow up 3 months Related to Gastro-esophageal reflux disease without esophagitis 1. Take blood pressu re medication daily as prescribed.2. Monitor blood pressure at home regularly and record for next follow up visit.3. Reduce sodium intake to 1 tsp (2300mg) per day maximum 4. Participate in moderate intensity aerobic exercise 5 days per week 30 minutes5. No nicotine6. Alcohol in moderation7. Decrease weight8. Recheck potassiumFollow up: 3 months Related to Hypertension, unspecified type Giving encouragement to exercise Related to Body mass index [BMI] 32.0-32.9, adult Lifestyle education regarding di et Related to Body mass index [BMI] 32.0-32.9, adult Giving encouragement to exercise Related to Body mass index [BMI] 31.0-31.9, adult Lifestyle education regarding di et Related to Body mass index [BMI] 31.0-31.9, adult Giving encouragement to exercise Related to Body mass index [BMI] 31.0-31.9, adult Lifestyle education regarding di et Related to Body mass index [BMI] 31.0-31.9, adult 1. Doxycycline as pr escribed, finish steroid2. Follow up as needed for worsening symptoms or those that do not improve as expected3. Discuss reasons to be evaluated to ED, pt verbalizes understanding. Related to Asthma Giving encouragement to exercise Related to Body mass index [BMI] 31.0-31.9, adult Dietary management e ducation, guidance, and counseling Related to Body mass index [BMI] 31.0-31.9, adult Giving encouragement to exercise Related to Body mass index [BMI] 31.0-31.9, adult Dietary management e ducation, guidance, and counseling Related to Body mass index [BMI] 31.0-31.9, adult Giving encouragement to exercise Related to Body mass index [BMI] 32.0-32.9, adult Dietary management e ducation, guidance, and counseling Related to Body mass index [BMI] 32.0-32.9, adult Giving encouragement to exercise Related to Body mass index [BMI] 33.0-33.9, adult Dietary management e ducation, guidance, and counseling Related to Body mass index [BMI] 33.0-33.9, adult 1. Take steroid tape r as prescribed2. Use albuterol inhaler as needed3. Call with worsening symptoms or concerns. Report to ER with respiratory distress, inability to catch breath. Related to Exacerbation of asthma, unspecified asthma severity, unspecified whether persistent 1. Take antibiotic a s prescribed. 2. Call coumadin clinic on Saturday, keep appointment next week for INR3. Patient prefers to follow up as needed d/t self pay Related to Acute bronchiolitis, unspecified Dietary management e ducation, guidance, and counseling Related to Body mass index [BMI] 33.0-33.9, adult Giving encouragement to exercise Related to Body mass index [BMI] 33.0-33.9, adult Dietary management e ducation, guidance, and counseling Related to Body mass index [BMI] 34.0-34.9, adult Giving encouragement to exercise Related to Body mass index [BMI] 34.0-34.9, adult Giving encouragement to exercise Related to Body mass index [BMI] 34.0-34.9, adult Dietary management e ducation, guidance, and counseling Related to Body mass index [BMI] 34.0-34.9, adult Giving encouragement to exercise Related to Body mass index (BMI) 34.0-34.9, adult Dietary management e ducation, guidance, and counseling Related to Body mass index (BMI) 34.0-34.9, adult Positive 2cm breast lump upper mid left breast. Is in the area of bruising caused from hitting a box at work. Would like to monitor probable hematoma for 3 weeks. If still there patient will call and get mammogram. sonogram scheduled. Related to Hematoma of left breast Encouraged monthly B SE. Recommend calcium 1000mg QD. Encouraged good dietary intake and exercise. Laboratory specimens sent to lab. Patient to call in 2 weeks if desires results. Related to Well woman check w/o abnormal finding Giving encouragement to exercise Related to Body mass index (BMI) 34.0-34.9, adult Dietary management e ducation, guidance, and counseling Related to Body mass index (BMI) 34.0-34.9, adult Giving encouragement to exercise Related to Body mass index (BMI) 34.0-34.9, adult Dietary management e ducation, guidance, and counseling Related to Body mass index (BMI) 34.0-34.9, adult Dietary management e ducation, guidance, and counseling Related to Body mass index (BMI) 35.0-35.9, adult Giving encouragement to exercise Related to Body mass index (BMI) 35.0-35.9, adult Giving encouragement to exercise Related to Body mass index (BMI) 35.0-35.9, adult Dietary management e ducation, guidance, and counseling Related to Body mass index (BMI) 35.0-35.9, adult Giving encouragement to exercise Related to Body mass index (BMI) 35.0-35.9, adult Dietary management e ducation, guidance, and counseling Related to Body mass index (BMI) 35.0-35.9, adult Giving encouragement to exercise Related to Body mass index (BMI) 35.0-35.9, adult Dietary management e ducation, guidance, and counseling Related to Body mass index (BMI) 35.0-35.9, adult Giving encouragement to exercise Related to Body mass index (BMI) 35.0-35.9, adult Dietary management e ducation, guidance, and counseling Related to Body mass index (BMI) 35.0-35.9, adult Giving encouragement to exercise Related to Body mass index (BMI) 34.0-34.9, adult Dietary management e ducation, guidance, and counseling Related to Body mass index (BMI) 34.0-34.9, adult Dietary management e ducation, guidance, and counseling Related to Body mass index (BMI) 34.0-34.9, adult Giving encouragement to exercise Related to Body mass index (BMI) 34.0-34.9, adult Dietary management e ducation, guidance, and counseling Related to Body mass index (BMI) 34.0-34.9, adult Dietary management e ducation, guidance, and counseling Related to Body mass index (BMI) 35.0-35.9, adult Giving encouragement to exercise Related to Body mass index (BMI) 35.0-35.9, adult Giving encouragement to exercise Related to Body mass index (BMI) 34.0-34.9, adult Dietary management e ducation, guidance, and counseling Related to Body mass index (BMI) 34.0-34.9, adult Dietary management e ducation, guidance, and counseling Related to Body mass index (BMI) 34.0-34.9, adult Giving encouragement to exercise Related to Body mass index (BMI) 34.0-34.9, adult Dietary management e ducation, guidance, and counseling Related to Body mass index (BMI) 34.0-34.9, adult Giving encouragement to exercise Related to Body mass index (BMI) 34.0-34.9, adult Dietary management e ducation, guidance, and counseling Related to Body mass index (BMI) 35.0-35.9, adult Giving encouragement to exercise Related to Body mass index (BMI) 35.0-35.9, adult Cervical cultures se nt to lab. Patient to call in 1 week for results Related to - STD liefstyle code Encouraged monthly B SE. Recommend calcium 1000mg QD. Encouraged good dietary intake and exercise. Laboratory specimens sent to lab. Patient to call in 2 weeks if desires results. Will have patietn sign medical release to obtain colonoscopy report. 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 Pat ient to call in 2 weeks for results. Related to ASCUS on pap smear of cervix Dietary management e ducation, guidance, and counseling Related to Body mass index (BMI) 33.0-33.9, adult Giving encouragement to exercise Related to Body mass index (BMI) 33.0-33.9, adult Giving encouragement to exercise Related to Body mass index (BMI) 34.0-34.9, adult Lifestyle education regarding di et Related to Body mass index (BMI) 34.0-34.9, adult Giving encouragement to exercise Related to Body mass index (BMI) 34.0-34.9, adult Dietary management e ducation, guidance, and counseling Related to Body mass index (BMI) 34.0-34.9, adult Urine culture sent to lab. Relat ed to Urinary frequency Cervical cultures se nt to lab. Patient to call in 1 week for results Related to - STD screen Encouraged monthly B SE. Recommend calcium 1000mg QD. Encouraged good dietary intake and exercise. Laboratory specimens sent to lab. Patient to call in 2 weeks if desires results. Discussed severe dysplasia and recommend repeat pap in 6 months. 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 Patient will state factors necessary to manage hypertension. Patient Goal Continued Hypertension Management: Patient needs education to manage hypertension. Patient will state factors necessary to manage hypertension. Patient Goal Continued Anxiety/Depression Patient will incorporate self-care/management techniques Patient Goal New Hyperlipidemia/High Cholesterol Patient will incorporate lifestyle changes to decrease cholesterol. Patient Goal New Hypertension Management: Patient needs education to manage hypertension. Patient will state factors necessary to manage hypertension. Patient Goal Continued Hypertension Management: Patient needs education to manage hypertension. Patient will state factors necessary to manage hypertension. Patient Goal Continued Hypertension Management: Patient needs education to manage hypertension. Patient will state factors necessary to manage hypertension. Patient Goal Continued Hypertension Management: Patient needs education to manage hypertension. Patient will state factors necessary to manage hypertension. Patient Goal Hypertension Management: Patient needs education to manage hypertension. Patient will state factors necessary to manage hypertension. Patient Goal Hypertension Management: Patient needs education to manage hypertension. Patient will state factors necessary to manage hypertension. Patient Goal Mental Status Date Cognitive Assessment Orientation - [place] ed to time, place, person, situation.Normal Orientation Patient Care Teams Name Effective Dates (start - stop) Status Members No Information
--- OUTSIDE RECORDS SUMMARY | 2025-04-19 12:20 | XMS_ITS | Clinical Summary ---
Author Organization [facility] Address [address] [place] [address] Phone Care Team Providers Care Orthotist Or Prosthetist Name Role Phone CaseyJohanntin GLEZ-SENIOR PATIENT ACCOUNT REPRESENTATIVE Primary Care Provider Allergies Active Allergy Reactions Criticality Noted Date Comments Cephalosporins Unknown Low 06/24/2023 Diltiazem Hives Low 06/24/2023 Meperidine Unknown Medium 06/24/2023 Penicillins Unknown Low 06/24/2023 Medications FLUoxetine (PROzac) 10 mg capsule Take 2 capsules (20 mg) by mouth once daily. Active magnesium oxide (Mag-Ox) 400 mg (241.3 mg magnesium) tablet Take 1 tablet (400 mg) by mouth once daily. Active montelukast (Singulair) 10 mg tablet Take 1 tablet (10 mg) by mouth once daily. Active pantoprazole (Protonix) 20 mg EC tablet Take 1 tablet (20 mg) by mouth early in the morning.. Active simvastatin (Zocor) 20 mg tablet Take 1 tablet (20 mg) by mouth once daily at bedtime. 2 Active albuterol 2.5 mg /3 mL (0.083 %) nebulizer solution Take 3 mL (2.5 mg) by nebulization. Active HYDROcodone-aceta minophen ([place]) 5-325 mg tablet Take 1 tablet by mouth every 6 hours if needed for severe pain (7 - 10). Active budesonide-formot Cony (Symbicort) 160-4.5 mcg/actuation inhaler Inhale 2 puffs 2 times a day. Rinse mouth with water after use to reduce aftertaste and incidence of candidiasis. Do not swallow. Active albuterol (Ventolin HFA) 90 mcg/actuation inhaler Inhale 2 puffs every 6 hours if needed for wheezing. Active losartan (Cozaar) 100 mg tablet 1 tablet (100 mg) once daily. Active apixaban (Eliquis) 5 mg tabletIndications :Longstanding persistent atrial fibrillation (Multi) Take 1 tablet (5 mg) by mouth 2 times a day. 180 tablet 3 5 01/02/20 Active flecainide (Tambocor) 150 mg tabletIndications :Longstanding persistent atrial fibrillation (Multi) Take 1 tablet (150 mg) by mouth every 12 hours. 180 tablet 3 5 01/02/20 Active Active Problems Problem Noted Date Diagnosed Date Never smoked tobacco 03/12/2024 BMI 31.0-31.9,adult 06/28/2023 Asthma 06/24/2023 Essential hypertension 06/24/2023 Mixed hyperlipidemia 06/24/2023 Longstanding persistent atrial fibrillation (Mul ti) 06/24/2023 Palpitations 06/24/2023 Shortness of breath at rest 06/24/2023 Anemia 06/24/2023 Anticoagulated 06/24/2023 Immunizations Immunization Administration Dates Next Due Influenza, Unspecified 08/12/2007 Tdap vaccine, age 7 year and older (BOOSTRIX, AD ACEL) 07/12/2022 Family History Medical History Relation Name Comments No Known Problems Brother Atrial fibrillation Father Coronary artery disease Father Hypertension Father Coronary artery disease Mother No Known Problems Sister Relation Name Status Comments Brother Father Mother Sister Social History Tobacco Use Types Packs/Day Years Used Date Smoking Tobacco: Never Smokeless Tobacco: Never Tobacco Cessation:Counseling Given: Not Answered Alcohol Use Standard Drinks/Week Comments Never 0 (1 standard drink = 0.6 oz pur e alcohol) Comments Unknown Sex and Gender Information Value Date Recorded Sex Assigned at Not on file Legal Sex Female 3:46 PM EST Gender Identity Not on file Sexual Orientation Not on file Last Filed Vital Signs Vital Sign Reading Time Taken Comments Blood Pressure 108/72 03/12/2024 3:40 PM EDT Pulse 64 03/12/2024 3:40 PM EDT Temperature - - Respiratory Rate - - Oxygen Saturation - - Inhaled Oxygen Concentration - - Weight 80.7 kg (178 lb) 03/12/2024 3:40 PM EDT Height 160 cm (5' 3 ) 03/12/2024 3:40 PM EDT Body Mass Index 31.53 03/12/2024 3:40 PM EDT Plan of Treatment Health Maintenance Due Date Last Done Comments CT Colonography 1960 Colonoscopy 1960 Colorectal Cancer Screening 1960 FIT-DNA (Cologuard) 1960 FIT 1960 HIV Screening 1960 Lipid Panel 1960 Sigmoidoscopy 1960 MMR Vaccines (1 of 1 - Stand usman series) 1961 Diabetes Screening 1978 Hepatitis C Screening 1978 Pneumococcal Vaccine (1 of 2 - PCV) 11/20/1979 Cervical Cancer Screening 1981 HPV/Cotest 1981 Pap Smear 1981 Mammogram 2000 Zoster Vaccines (1 of 2) 2010 RSV High Risk: (Elderly (60+ ) or Population) (1 - Risk 60-74 years 1-dose series) 2020 Yearly Adult Physical 05/07/2024 05/06/2023 COVID-19 Vaccine (1 - 2023-2 5 season) 2025 Influenza Vaccine (#1) 2025 08/12/2007 DTaP/Tdap/Td Vaccines (2 - T d or Tdap) 07/12/2032 07/12/2022 HIB Vaccines Aged Out No longer eligi ble based on patient's age to complete this topic HPV Vaccines Aged Out No longer eligi ble based on patient's age to complete this topic Hepatitis A Vaccines Aged Out No long er eligible based on patient's age to complete this topic Hepatitis B Vaccines Aged Out No long er eligible based on patient's age to complete this topic IPV Vaccines Aged Out No longer eligi ble based on patient's age to complete this topic Meningococcal Vaccine Aged Out No ranjit randolph eligible based on patient's age to complete this topic Rotavirus Vaccines Aged Out No longer eligible based on patient's age to complete this topic Insurance [employer] Care Teams Orthotist Or Prosthetist Relationship Specialty Start Date End Date Owen Peña APRN-JEFERSON [address] [place] [id number] PCP - General 12/21/21
--- OUTSIDE RECORDS SUMMARY | 2025-04-19 12:20 | XMS_ITS | Encounter Summary ---
Author Organization [facility] Address [address] [place] [address] Care Team Providers Care Greens Laborer Name Role Phone Hari Gutierrez MD Primary Care Provider [phone] Unallocated, Noms Provider Primary Care Provi orestes [facility] Primary Car e Provider Encounter Details Date Type Department Care Team (Late Contact Info) Description 01/09/2023 Abstract [facility] [address] [place] [phone] Rosy Garnt, [facility] [address] [place] [address] Social History Tobacco Use Types Packs/Day Years Used Date Smoking Tobacco: Never Alcohol Use Standard Drinks/Week Comments Never 0 (1 standard drink = 0.6 oz pure alcohol) Caffeine intake: 1-2 cups per day of soda Comments Unknown Sex and Gender Information Value Date Recorded Sex Assigned at Not on file Legal Sex Female 7:11 PM EDT Gender Identity Not on file Sexual Orientation Not on file documented as of this encounter Plan of Treatment Upcoming Encounters Date Type Department Care Team (Late Contact Info) Description 05/31/2025 2:00 PM EDT Office Visit [facility] [address] [place] [phone] Tien Garcia, [address] [place] [address] documented as of this encounter Visit Diagnoses Not on filedocumented in this encounter Care Teams Greens Laborer Relationship Specialty Start Date End Date Hari Gutierrez MD [address] [place] [address] PCP - General Family Medicine 01/28/23 02/06/23 Unallocated, Nomkomal Tatum MD [address] [place] [address] PCP - General 02/07/23 05/20/23 [facility] [address] [place] [phone] PCP - General 05/21/23 documented as of this encounter
--- OUTSIDE RECORDS SUMMARY | 2025-04-19 12:20 | XMS_ITS | Encounter Summary ---
Author Organization [facility] Address [address] [place] [address] Phone Care Team Providers Care Global Sourcing Manager Name Role Phone Owen Peña Primary Care Provider Encounter Details Date Type Department Care Team (Late st Contact Info) Description 06/17/2023 Scanned Document [facility] [address] [place] [phone] Scanning, Generic Provider Social History Tobacco Use Types Packs/Day Years Used Date Smoking Tobacco: Never Assessed Comments Unknown Sex and Gender Information Value Date Recorded Sex Assigned at Not on file Legal Sex Female 3:46 PM EST Gender Identity Not on file Sexual Orientation Not on file documented as of this encounter Plan of Treatment Not on file documented as of this encounter Visit Diagnoses Not on filedocumented in this encounter Care Teams Global Sourcing Manager Relationship Specialty Start Date End Date Owen Peña APRN-CNP [address] [place] [phone] PCP - General 12/21/21 documented as of this encounter
--- OUTSIDE RECORDS SUMMARY | 2025-04-19 12:20 | XMS_ITS | Encounter Summary ---
Author Organization [facility] Address [address] [place] [address] Care Team Providers Care Visual Lead Name Role Phone [facility] [place] Primary Car e Provider Encounter Details Date Type Department Care Team ([facility] Contact Info) Description 06/18/2023 Orders Only [facility] [address] [facility] [address] [place] [phone] Tien Garcia, DO [address] [facility] [address] [place] [address] Social History Tobacco Use Types Packs/Day Years Used Date Smoking Tobacco: Never Smokeless Tobacco: Never Alcohol Use Standard Drinks/Week Comments Never 0 (1 standard drink = 0.6 oz pure alcohol) Caffeine intake: 1-2 cups per day of soda AUDIT-C Answer Date Recorded Q1: How often do you have a drink containing alcohol? Never 05/06/2023 Q2: How many drinks containi ng alcohol do you have on a typical day when you are drinking? Patient does not drink Q3: How often do you have si x or more drinks on one occasion? Never 05/06/2023 PHQ-2 Answer Date Recorded Patient Health Questionnaire-2 Score 0 05/06/2023 Comments No Sex and Gender Information Value Date Recorded Sex Assigned at Not on file Legal Sex Female 7:11 PM EDT Gender Identity Not on file Sexual Orientation Not on file documented as of this encounter Plan of Treatment Upcoming Encounters Date Type Department Care Team ([facility] Contact Info) Description 05/31/2025 2:00 PM EDT Office Visit [facility] [address] [place] [phone] Tien Garcia DO [address] [place] [address] documented as of this encounter Procedures Procedure Name Priority Date/Time Associated Diagnosis Comments SCANNED LABS Routine 06/18/2023 4:06 PM EST documented in this encounter Results * SCANNED LABS (06/18/2023 4:06 PM EST) us Tien Garcia DO LAB CHG PERFORMABLES Final Re sult documented in this encounter Visit Diagnoses Not on filedocumented in this encounter Care Teams Visual Lead Relationship Specialty Start Date End Date [facility] [place] [address] [place] [phone] PCP - General 05/21/23 documented as of this encounter
--- OUTSIDE RECORDS SUMMARY | 2025-04-19 12:20 | XMS_ITS | Encounter Summary ---
Author Organization [facility] Address [address] [place] [address] Phone Care Team Providers Care Soldering Machine Operator Automatic Name Role Phone Owen Peña Primary Care Provider Encounter Details Date Type Department Care Team (Late st Contact Info) Description 04/19/2023 Scanned Document [facility] [address] [place] [address] Conversion, Onbase Social History Tobacco Use Types Packs/Day Years Used Date Smoking Tobacco: Never Assessed Comments Unknown Sex and Gender Information Value Date Recorded Sex Assigned at Not on file Legal Sex Female 3:46 PM EST Gender Identity Not on file Sexual Orientation Not on file documented as of this encounter Plan of Treatment Not on file documented as of this encounter Procedures Procedure Name Priority Date/Time Associated Diagnosis Comments OUTSIDE IMAGING SCAN 04/19/2023 documented in this encounter Results * OUTSIDE IMAGING SCAN (04/19/2023) Anatomical Region Laterality Modality Other Narrative 04/19/2023 Ordered by an unspecified provider. us Onbase Conversion OUTSIDE SCAN Final Result documented in this encounter Visit Diagnoses Not on filedocumented in this encounter Care Teams Soldering Machine Operator Automatic Relationship Specialty Start Date End Date Owen Peña APRN-CNP [address] [place] [id number] PCP - General 12/21/21 documented as of this encounter
--- OUTSIDE RECORDS SUMMARY | 2025-04-19 12:20 | XMS_ITS | Encounter Summary ---
Author Organization [facility] Address [address] [place] [address] Phone Care Team Providers Care Braille Teacher Name Role Phone CaseyOwen TRAY DRIER-LAN MANAGER Primary Care Provider Encounter Details Date Type Department Care Team (Late st Contact Info) Description 04/20/2023 Scanned Document [facility] [address] [place] [phone] Scanning, Generic Provider Social History Tobacco Use [...] Date/Time Associated Diagnosis Comments OUTSIDE IMAGING SCAN 04/20/2023 ELECTROCARDIOGRAM RHYTHM STRIP 04/20/2023 ECHOCARDIOGRAM 04/20/2023 ECHOCARDIOGRAM 04/20/2023 documented in this encounter Results * ECHOCARDIOGRAM (04/20/2023) Narrative 04/20/2023 Ordered by an unspecified provider. us Onbase Conversion CV ECHO PROCEDURES Final Resul t * ECHOCARDIOGRAM (04/20/2023) Narrative 04/20/2023 Ordered by an unspecified provider. us Generic Provider Scanning CV ECHO PROCEDURES Fin al Result * OUTSIDE IMAGING SCAN (04/20/2023) Anatomical Region Laterality Modality Other Narrative 04/20/2023 Ordered by an unspecified provider. us Generic Provider Scanning OUTSIDE SCAN Final Result * ELECTROCARDIOGRAM RHYTHM STRIP (04/20/2023) Narrative 04/20/2023 Ordered by an unspecified provider. us Onbase Conversion ECG ORDERABLES Final Result documented in this encounter Visit Diagnoses Not on filedocumented in this encounter Care Teams Braille Teacher Relationship Specialty Start Date End Date Owen Peña APRN-JEFERSON [address] [place] [address] PCP - General 12/21/21 documented as of this encounter
--- OUTSIDE RECORDS SUMMARY | 2025-04-19 12:20 | XMS_ITS | Encounter Summary ---
Author Organization [facility] Address [address] [place] [address] Phone Care Team Providers Care Saddle Stitch Operator Name Role Phone Owen Peña Primary Care Provider Encounter Details Date Type Department Care Team (Late st Contact Info) Description 05/10/2023 Scanned Document [facility] [address] [place] [address] Conversion, Onbase Social History Tobacco Use Types [...] Procedure Name Priority Date/Time Associated Diagnosis Comments ELECTROCARDIOGRAM RHYTHM STRIP 05/10/2023 documented in this encounter Results * ELECTROCARDIOGRAM RHYTHM STRIP (05/10/2023) Narrative 05/10/2023 Ordered by an unspecified provider. us Onbase Conversion ECG ORDERABLES Final Result documented in this encounter Visit Diagnoses Not on filedocumented in this encounter Care Teams Saddle Stitch Operator Relationship Specialty Start Date End Date Owen Peña APRN-CNP [address] [place] [id number] PCP - General 12/21/21 documented as of this encounter
--- OUTSIDE RECORDS SUMMARY | 2025-04-19 12:20 | XMS_ITS | Encounter Summary ---
Author Organization [facility] Address [address] [facility] [place] [address] Care Team Providers Care Train Station Server Name Role Phone Hari Gutierrez MD Primary Care Provider [phone] Unallocated, Noms Provider Primary Care Provi orestes [facility] Primary Car e Provider Encounter Details Date Type Department Care Team (Late Contact Info) Description 01/01/2023 Abstract [facility] [address] [facility] [address] [place] [address] Tien Garcia DO [address] [facility] [address] [place] [address] Social History Tobacco Use Types Packs/Day Years Used Date Smoking Tobacco: Never Tobacco Cessation:Counseling Given: Not Answered [...] EDT Office Visit DEBBY AVITIA [address] [facility] [address] [place] [address] Tien Garcia DO [address] [facility] [address] [place] [address] documented as of this encounter Visit Diagnoses Not on filedocumented in this encounter Care Teams Train Station Server Relationship Specialty Start Date End Date Hari Gutierrez MD [address] [place] [address] PCP - General Family Medicine 01/28/23 02/06/23 Unallocated, Nomkomal Tatum MD [address] [place] [address] PCP - General 02/07/23 05/20/23 [facility] [address] [place] [phone] PCP - General 05/21/23 documented as of this encounter
--- OUTSIDE RECORDS SUMMARY | 2025-04-19 12:20 | XMS_ITS | Encounter Summary ---
Author Organization [facility] Address [address] [place] [address] Phone Care Team Providers Care Rn Military Name Role Phone Owen Peña Primary Care Provider Encounter Details Date Type Department Care Team (Late st Contact Info) Description 04/20/2023 Orders Only [facility] [address] [place] [address] Conversion, Onbase Social History Tobacco Use Types Packs/Day Years Used Date Smoking Tobacco: Never Assessed Comments Unknown Sex and Gender Information Value Date Recorded Sex Assigned at Not on file Legal Sex Female 3:46 PM EST Gender Identity Not on file Sexual Orientation Not on file documented as of this encounter Plan of Treatment Scheduled Orders Name Type Priority Associated Diagnoses Orde r Schedule OUTSIDE LAB SCAN Lab Ordered: 04/20/2023 documented as of this encounter Visit Diagnoses Not on filedocumented in this encounter Care Teams Rn Military Relationship Specialty Start Date End Date Owen Peña APRN-CNP [address] [place] [address] PCP - General 12/21/21 documented as of this encounter
--- OUTSIDE RECORDS SUMMARY | 2025-04-19 12:20 | XMS_ITS | Encounter Summary ---
Author Organization [facility] Address [address] [place] [address] Care Team Providers Care Billet Worker Name Role Phone [facility] Primary Car e Provider Encounter Details Date Type Department Care Team ([facility] Contact Info) Description 06/26/2023 Abstract DEBBY AVITIA [address] [facility] [address] [place] [address] Tien Garcia, DO [address] [facility] [address] [place] [address] Social History Tobacco Use Types Packs/Day Years [...] Upcoming Encounters Date Type Department Care Team ([facility] Contact Info) Description 05/31/2025 2:00 PM EDT Office Visit DEBBY AVITIA [address] [place] [address] Tien Garcia DO [address] [facility] [address] [place] [address] documented as of this encounter Visit Diagnoses Not on filedocumented in this encounter Care Teams Billet Worker Relationship Specialty Start Date End Date [facility] [address] [place] [phone] PCP - General 05/21/23 documented as of this encounter
--- OUTSIDE RECORDS SUMMARY | 2025-04-19 12:20 | XMS_ITS | Encounter Summary ---
Author Organization [facility] Address [address] [place] [address] Phone Care Team Providers Care Plate Painter Apprentice Name Role Phone Owen Peña Primary Care Provider Encounter Details Date Type Department Care Team (Late st Contact Info) Description 06/25/2023 Scanned Document [facility] [address] [place] [phone] Scanning, Generic Provider Social History Tobacco Use Types Packs/Day Years Used Date Smoking Tobacco: Never Assessed Comments Unknown Sex and Gender Information Value Date Recorded Sex Assigned at Not on file Legal Sex Female 3:46 PM EST Gender Identity Not on file Sexual Orientation Not on file COVID-19 Exposure Response Date Recorded In the last 10 days, have yo u been in contact with someone who was confirmed or suspected to have Coronavirus/COVID-19? No / Unsure 06/28/2023 9:06 AM EST documented as of this encounter Plan of Treatment Not on file documented as of this encounter Visit Diagnoses Not on filedocumented in this encounter Care Teams Plate Painter Apprentice Relationship Specialty Start Date End Date Owen Peña APRN-CNP [address] [place] [address] PCP - General 12/21/21 documented as of this encounter
--- OUTSIDE RECORDS SUMMARY | 2025-04-19 12:21 | XMS_ITS | Encounter Summary ---
Author Organization [facility] Address [address] [place] [address] Phone Care Team Providers Care Apple Packing Header Name Role Phone Owen Peña Primary Care Provider Encounter Details Date Type Department Care Team (Late st Contact Info) Description 12/23/2019 Orders Only [facility] [address] [place] [address] Conversion, Onbase Social History Tobacco Use Types [...] r Schedule OUTSIDE LAB SCAN Lab Ordered: 12/23/2019 documented as of this encounter Visit Diagnoses Not on filedocumented in this encounter Care Teams Apple Packing Header Relationship Specialty Start Date End Date Owen Peña APRN-CNP [address] [place] [address] PCP - General 12/21/21 documented as of this encounter
--- OUTSIDE RECORDS SUMMARY | 2025-04-19 12:21 | XMS_ITS | Encounter Summary ---
Author Organization [facility] Address [address] [place] [address] Phone Care Team Providers Care Cd Storage And Materials Make Up Helper Name Role Phone Owen Peña Primary Care Provider Encounter Details Date Type Department Care Team (Late st Contact Info) Description 05/14/2019 Orders Only [facility] [address] [place] [address] Conversion, Onbase Social History Tobacco Use Types [...] r Schedule OUTSIDE LAB SCAN Lab Ordered: 05/14/2019 documented as of this encounter Visit Diagnoses Not on filedocumented in this encounter Care Teams Cd Storage And Materials Make Up Helper Relationship Specialty Start Date End Date Owen Peña APRN-CNP [address] [place] [phone] PCP - General 12/21/21 documented as of this encounter
--- OUTSIDE RECORDS SUMMARY | 2025-04-19 12:21 | XMS_ITS | Encounter Summary ---
Author Organization [facility] Address [address] [place] [place] [address] Phone Care Team Providers Care X Ray Electronics Wiring Technician Name Role Phone Owen Peña Primary Care Provider Encounter Details Date Type Department Care Team (Late st Contact Info) Description 11/09/2020 Orders Only [facility] [address] [place] [address] Conversion, Onbase Social History Tobacco Use Types [...] r Schedule OUTSIDE LAB SCAN Lab Ordered: 11/09/2020 documented as of this encounter Visit Diagnoses Not on filedocumented in this encounter Care Teams X Ray Electronics Wiring Technician Relationship Specialty Start Date End Date Owen Peña APRN-CNP [address] [place] [address] PCP - General 12/21/21 documented as of this encounter
--- OUTSIDE RECORDS SUMMARY | 2025-04-19 12:21 | XMS_ITS | Encounter Summary ---
Author Organization [facility] Address [address] [place] [address] Phone Care Team Providers Care Senior Asic Design Engineer Name Role Phone Owen Peña Primary Care Provider Encounter Details Date Type Department Care Team (Late st Contact Info) Description 08/31/2020 Orders Only [facility] [address] [place] [address] Conversion, Onbase Social History Tobacco Use Types [...] r Schedule OUTSIDE LAB SCAN Lab Ordered: 08/31/2020 documented as of this encounter Visit Diagnoses Not on filedocumented in this encounter Care Teams Senior Asic Design Engineer Relationship Specialty Start Date End Date Owen Peña APRN-CNP [address] [place] [phone] PCP - General 12/21/21 documented as of this encounter
--- OUTSIDE RECORDS SUMMARY | 2025-04-19 12:21 | XMS_ITS | Patient Health Record ---
Author Organization [facility] Address [address] [place] [address] Care Team Providers Care Portrait Painter Name Role Phone Karson Perez Primary Care Provider Reason For Referral No Information Problems Problem Type SNOMED Code ICD Code Onset Dates Problem Status W/U Status Risk Notes Problem Dental consultation and report ([id number]) Encounter for dental examination and cleaning with abnormal findings (Z01.21) Active confirmed Problem Other dental procedure status (Z98.818) Active confirmed Plan Of Treatment No Information Insurance Providers Payer Name Payer Address Payer Phone Subscriber Number Group Number Insured Name Patient Relationship to Insured Coverage Start Date Coverage End Date [facility] [place] [employer] [address] [address] [place] [address] [id number] ANN NARANJO Self - patient is the insured 3 [employer] [facility] [place] [address] [place] [address] [id number] ANN NARANJO Self - patient is the insured 3
--- OUTSIDE RECORDS SUMMARY | 2025-04-19 12:21 | XMS_ITS | Encounter Summary ---
Author Organization [facility] Address [address] [place] [address] Phone Care Team Providers Care Auto Finance Sales Rep Name Role Phone Owen Peña Primary Care Provider Encounter Details Date Type Department Care Team (Late st Contact Info) Description 03/08/2021 Orders Only [facility] [address] [place] [address] Conversion, Onbase Social History Tobacco Use Types [...] r Schedule OUTSIDE LAB SCAN Lab Ordered: 03/08/2021 documented as of this encounter Visit Diagnoses Not on filedocumented in this encounter Care Teams Auto Finance Sales Rep Relationship Specialty Start Date End Date Owen Peña APRN-CNP [address] [place] [phone] PCP - General 12/21/21 documented as of this encounter
--- OUTSIDE RECORDS SUMMARY | 2025-04-19 12:21 | XMS_ITS | Encounter Summary ---
Author Organization [facility] Address [address] [place] [address] Phone Care Team Providers Care Electric Meter Repairer Apprentice Name Role Phone Owen Peña Primary Care Provider Encounter Details Date Type Department Care Team (Late st Contact Info) Description 03/30/2020 Orders Only [facility] [address] [place] [address] Conversion, Onbase Social History Tobacco Use Types [...] r Schedule OUTSIDE LAB SCAN Lab Ordered: 03/30/2020 documented as of this encounter Visit Diagnoses Not on filedocumented in this encounter Care Teams Electric Meter Repairer Apprentice Relationship Specialty Start Date End Date Owen Peña APRN-CNP [address] [place] [phone] PCP - General 12/21/21 documented as of this encounter
--- OUTSIDE RECORDS SUMMARY | 2025-04-19 12:21 | XMS_ITS | Encounter Summary ---
Author Organization [facility] Address [address] [place] [address] Phone Care Team Providers Care Protohistorian Name Role Phone Owen Peña Primary Care Provider Encounter Details Date Type Department Care Team (Late st Contact Info) Description 12/14/2020 Orders Only [facility] [address] [place] [address] Conversion, Onbase Social History Tobacco Use Types [...] r Schedule OUTSIDE LAB SCAN Lab Ordered: 12/14/2020 documented as of this encounter Visit Diagnoses Not on filedocumented in this encounter Care Teams Protohistorian Relationship Specialty Start Date End Date Owen Peña APRN-CNP [address] [place] [address] PCP - General 12/21/21 documented as of this encounter
--- OUTSIDE RECORDS SUMMARY | 2025-04-19 12:21 | XMS_ITS | Encounter Summary ---
Author Organization [facility] Address [address] [place] [address] Phone Care Team Providers Care Tape Deck Installer Name Role Phone Owen Peña Primary Care Provider Encounter Details Date Type Department Care Team (Late st Contact Info) Description 09/21/2019 Orders Only [facility] [address] [place] [address] Conversion, Onbase Social History Tobacco Use Types [...] r Schedule OUTSIDE LAB SCAN Lab Ordered: 09/21/2019 documented as of this encounter Visit Diagnoses Not on filedocumented in this encounter Care Teams Tape Deck Installer Relationship Specialty Start Date End Date Owen Peña APRN-CNP [address] [place] [phone] PCP - General 12/21/21 documented as of this encounter
--- OUTSIDE RECORDS SUMMARY | 2025-04-19 12:21 | XMS_ITS | Encounter Summary ---
Author Organization [facility] Address [address] [place] [address] Phone Care Team Providers Care Directory Carrier Name Role Phone Owen Peña Primary Care Provider Encounter Details Date Type Department Care Team (Late st Contact Info) Description 09/08/2019 Orders Only [facility] [address] [place] [address] Conversion, Onbase Social History Tobacco Use Types [...] r Schedule OUTSIDE LAB SCAN Lab Ordered: 09/08/2019 documented as of this encounter Visit Diagnoses Not on filedocumented in this encounter Care Teams Directory Carrier Relationship Specialty Start Date End Date Owen Peña APRN-CNP [address] [place] [address] PCP - General 12/21/21 documented as of this encounter
--- OUTSIDE RECORDS SUMMARY | 2025-04-19 12:21 | XMS_ITS | Encounter Summary ---
Author Organization [facility] Address [address] [place] [address] Phone Care Team Providers Care College Counselor Name Role Phone Owen Peña Primary Care Provider Encounter Details Date Type Department Care Team (Late st Contact Info) Description 07/02/2019 Orders Only [facility] [address] [place] [address] Conversion, Onbase Social History Tobacco Use Types [...] r Schedule OUTSIDE LAB SCAN Lab Ordered: 07/02/2019 documented as of this encounter Visit Diagnoses Not on filedocumented in this encounter Care Teams College Counselor Relationship Specialty Start Date End Date Owen Peña APRN-CNP [address] [place] [phone] PCP - General 12/21/21 documented as of this encounter
--- OUTSIDE RECORDS SUMMARY | 2025-04-19 12:21 | XMS_ITS | Encounter Summary ---
Author Organization [facility] Address [address] [place] [address] Phone Care Team Providers Care Die Repairer Trimmer Dies Name Role Phone Owen Peña Primary Care Provider Encounter Details Date Type Department Care Team (Late st Contact Info) Description 09/02/2019 Orders Only [facility] [address] [place] [address] Conversion, Onbase Social History Tobacco Use Types [...] r Schedule OUTSIDE LAB SCAN Lab Ordered: 09/02/2019 documented as of this encounter Visit Diagnoses Not on filedocumented in this encounter Care Teams Die Repairer Trimmer Dies Relationship Specialty Start Date End Date Owen Peña APRN-CNP [address] [place] [phone] PCP - General 12/21/21 documented as of this encounter
--- OUTSIDE RECORDS SUMMARY | 2025-04-19 12:21 | XMS_ITS | Encounter Summary ---
Author Organization [facility] Address [address] [place] [address] Phone Care Team Providers Care Money Position Officer Name Role Phone Owen Peña Primary Care Provider Encounter Details Date Type Department Care Team (Late st Contact Info) Description 11/25/2019 Orders Only [facility] [address] [place] [address] Conversion, Onbase Social History Tobacco Use Types [...] r Schedule OUTSIDE LAB SCAN Lab Ordered: 11/25/2019 documented as of this encounter Visit Diagnoses Not on filedocumented in this encounter Care Teams Money Position Officer Relationship Specialty Start Date End Date Owen Peña APRN-CNP [address] [place] [address] PCP - General 12/21/21 documented as of this encounter
--- OUTSIDE RECORDS SUMMARY | 2025-04-19 12:21 | XMS_ITS | Encounter Summary ---
Author Organization [facility] Address [address] [place] [address] Phone Care Team Providers Care Boner Meat Name Role Phone Owen Peña Primary Care Provider Encounter Details Date Type Department Care Team (Late st Contact Info) Description 05/11/2020 Orders Only [facility] [address] [place] [address] Conversion, Onbase Social History Tobacco Use Types [...] r Schedule OUTSIDE LAB SCAN Lab Ordered: 05/11/2020 documented as of this encounter Visit Diagnoses Not on filedocumented in this encounter Care Teams Boner Meat Relationship Specialty Start Date End Date Owen Peña APRN-CNP [address] [place] [address] PCP - General 12/21/21 documented as of this encounter
--- OUTSIDE RECORDS SUMMARY | 2025-04-19 12:21 | XMS_ITS | Encounter Summary ---
Author Organization [facility] Address [address] [place] [address] Phone Care Team Providers Care Patient Information Coordinator Name Role Phone Owen Peña Primary Care Provider Encounter Details Date Type Department Care Team (Late st Contact Info) Description 02/17/2020 Orders Only [facility] [address] [place] [address] Conversion, Onbase Social History Tobacco Use Types [...] r Schedule OUTSIDE LAB SCAN Lab Ordered: 02/17/2020 documented as of this encounter Visit Diagnoses Not on filedocumented in this encounter Care Teams Patient Information Coordinator Relationship Specialty Start Date End Date Owen Peña APRN-CNP [address] [place] [address] PCP - General 12/21/21 documented as of this encounter
--- OUTSIDE RECORDS SUMMARY | 2025-04-19 12:21 | XMS_ITS | Encounter Summary ---
Author Organization [facility] Address [address] [place] [address] Phone Care Team Providers Care Gallery Intern Name Role Phone Owen Peña Primary Care Provider Encounter Details Date Type Department Care Team (Late st Contact Info) Description 12/05/2021 Orders Only [facility] [address] [place] [address] Conversion, Onbase Social History Tobacco Use Types [...] r Schedule OUTSIDE LAB SCAN Lab Ordered: 12/05/2021 documented as of this encounter Visit Diagnoses Not on filedocumented in this encounter Care Teams Gallery Intern Relationship Specialty Start Date End Date Owen Peña APRN-CNP [address] [place] [phone] PCP - General 12/21/21 documented as of this encounter
--- OUTSIDE RECORDS SUMMARY | 2025-04-19 12:21 | XMS_ITS | Encounter Summary ---
Author Organization [facility] Address [address] [place] [address] Phone Care Team Providers Care Electrical Research Engineer Name Role Phone Owen Peña Primary Care Provider Encounter Details Date Type Department Care Team (Late st Contact Info) Description 10/08/[address] [facility] [address] [place] [address] Conversion, Onbase Social History Tobacco Use Types [...] r Schedule OUTSIDE LAB SCAN Lab Ordered: 10/08/2019 documented as of this encounter Visit Diagnoses Not on filedocumented in this encounter Care Teams Electrical Research Engineer Relationship Specialty Start Date End Date Owen Peña APRN-CNP [address] [place] [address] PCP - General 12/21/21 documented as of this encounter
--- OUTSIDE RECORDS SUMMARY | 2025-04-19 12:21 | XMS_ITS | Encounter Summary ---
Author Organization [facility] Address [address] [place] [address] Phone Care Team Providers Care Director Franchise Sales Name Role Phone Owen Peña Primary Care Provider Encounter Details Date Type Department Care Team (Late st Contact Info) Description 07/13/2020 Orders Only [facility] [address] [place] [address] Conversion, Onbase Social History Tobacco Use Types [...] r Schedule OUTSIDE LAB SCAN Lab Ordered: 07/13/2020 documented as of this encounter Visit Diagnoses Not on filedocumented in this encounter Care Teams Director Franchise Sales Relationship Specialty Start Date End Date Owen Peña APRN-CNP [address] [place] [address] PCP - General 12/21/21 documented as of this encounter
--- OUTSIDE RECORDS SUMMARY | 2025-04-19 12:21 | XMS_ITS | Encounter Summary ---
Author Organization [facility] Address [address] [place] [address] Phone Care Team Providers Care Air Boatswain Name Role Phone Owen Peña Primary Care Provider Encounter Details Date Type Department Care Team (Late st Contact Info) Description 10/19/2020 Orders Only [facility] [address] [place] [address] [place] [address] Conversion, Onbase Social History Tobacco Use Types [...] r Schedule OUTSIDE LAB SCAN Lab Ordered: 10/19/2020 OUTSIDE LAB SCAN Lab Ordered: 10/19/2020 documented as of this encounter Visit Diagnoses Not on filedocumented in this encounter Care Teams Air Boatswain Relationship Specialty Start Date End Date Owen Peña APRN-CNP [address] [place] [address] PCP - General 12/21/21 documented as of this encounter
--- OUTSIDE RECORDS SUMMARY | 2025-04-19 12:21 | XMS_ITS | Clinical Summary ---
Author Organization [facility] Healthcare Address [address] [place] [address] Care Team Providers Care Dynamics Ax Consultant Name Role Phone [facility] Primary Car e Provider Allergies Active Allergy Reactions Criticality Noted Date Comments Cephalexin 05/12/2024 Other Reaction(s): hives Cephalosporins Unknown 02/07/2023 Diltiazem 05/12/2024 Other Reaction(s): hives Meperidine Unknown 02/07/2023 Penicillins Unknown 02/07/2023 Medications Ventolin HFA 108 (90 Base) MCG/ACT inhaler 03/05/2023 Act marcella Eliquis 5 MG tablet as directed Orally two times daily Active Symbicort 160-4.5 MCG/ACT inhaler 03/05/2023 Active cetirizine (ZyrTEC) 10 MG tablet 1 (one) time each day at the same time. Active flecainide (Tambocor) 150 MG tablet 12/18/2022 Active FLUoxetine (PROzac) 20 MG capsule 03/05/2023 Active folic acid (Folvite) 800 MCG tablet 1 (one) time each day at the same time. Active simvastatin (Zocor) 20 MG tablet 1 (one) time each day at the same time. Active losartan (Cozaar) 100 MG tablet 01/17/2023 Active MAGnesium-Oxide 400 (240 Mg) MG tablet 02/28/2023 Active pantoprazole (ProtoNix) 40 MG EC tablet Take 40 mg by mouth in the morning. Take before meals. 04/23/2023 Active montelukast (Singulair) 10 MG tablet Take 10 mg by mouth in the morning. Active amLODIPine (Norvasc) 5 MG tablet 10/06/2023 Active Active Problems Problem Noted Date Diagnosed Date Closed fracture of head of left radius Elbow stiffness, left 01/16/2024 Onychomycosis 02/07/2023 Pain in both feet 02/07/2023 Peripheral vascular disease 02/07/2023 Resolved Problems Problem Noted Date Diagnosed Date Resolved Date Elbow pain, chronic, left 01/16/2024 Encounters Date Type Department Care Team Description 01/26/2025 Telephone [facility] [address] [place] [address] Roxana Patino DPM from Last 3 Months Family History Medical History Relation Name Comments Cancer Father Olegario Bloom Diabetes Father Olegario Bloom pre diabetes Heart disease Father Olegario Bloom Hyperlipidemia Father [place] Hypertension Father Olegario Bloom Diverticulitis Mother Hyperlipidemia Mother Hypertension Mother Hypertension Sister 2 sisters Thyroid disease Sister 2 sisters Relation Name Status Comments Daughter Alive Father Olegario Bloom Alive Mother Alive Sister 2 sisters Son Alive Social History Tobacco Use Types Packs/Day Years Used Date Smoking Tobacco: Former Cigarettes Smokeless Tobacco: Never Tobacco Cessation:Counseling Given: Not Answered Alcohol Use Standard Drinks/Week Comments Not Currently 0 (1 standard drink = 0.6 oz pur e alcohol) No longer drink AUDIT-C Answer Date Recorded Q1: How often [...] Sign Reading Time Taken Comments Blood Pressure 110/80 06/18/2024 2:12 PM EST Pulse 89 12/13/2023 9:45 AM EDT Temperature 36.2 C (97.2 F) 12/13/2023 9:45 AM EDT Respiratory Rate 18 12/13/2023 9:45 AM EDT Oxygen Saturation 98% 12/13/2023 9:45 AM EDT Inhaled Oxygen Concentration - - Weight 81.6 kg (180 lb) 06/18/2024 2:12 PM EST Height 162.6 cm (5' 4 ) 01/21/2024 10:22 AM EDT Body Mass Index 30.9 01/21/2024 10:22 AM EDT Plan of Treatment Upcoming Encounters Date Type Department Care Team (Late st Contact Info) Description 05/31/2025 2:00 PM EDT Office Visit [facility] [address] [place] [phone] Tien Garcia DO [address] [place] [phone] Insurance [facility] [place] [address] Care Teams Dynamics Ax Consultant Relationship Specialty Start Date End Date [facility] [address] [place] [phone] PCP - General 05/21/23
--- OUTSIDE RECORDS SUMMARY | 2025-04-19 12:21 | XMS_ITS | Encounter Summary ---
Author Organization [facility] Address [address] [place] [address] Phone Care Team Providers Care Child And Family Services Worker Name Role Phone Owen Peña Primary Care Provider Encounter Details Date Type Department Care Team (Late st Contact Info) Description 01/20/2020 Orders Only [facility] [address] [place] [address] Conversion, Onbase Social History Tobacco Use Types [...] r Schedule OUTSIDE LAB SCAN Lab Ordered: 01/20/2020 documented as of this encounter Visit Diagnoses Not on filedocumented in this encounter Care Teams Child And Family Services Worker Relationship Specialty Start Date End Date Owen Peña APRN-CNP [address] [place] [phone] PCP - General 12/21/21 documented as of this encounter
--- OUTSIDE RECORDS SUMMARY | 2025-04-19 12:21 | XMS_ITS | Encounter Summary ---
Author Organization [facility] Address [address] [place] [address] Phone Care Team Providers Care Labor Gang Supervisor Name Role Phone Owen Peña Primary Care Provider Encounter Details Date Type Department Care Team (Late st Contact Info) Description 09/07/2020 Orders Only [facility] [address] [place] [address] Conversion, Onbase Social History Tobacco Use Types [...] r Schedule OUTSIDE LAB SCAN Lab Ordered: 09/07/2020 documented as of this encounter Visit Diagnoses Not on filedocumented in this encounter Care Teams Labor Gang Supervisor Relationship Specialty Start Date End Date Owen ePña APRN-CNP [address] [place] [phone] PCP - General 12/21/21 documented as of this encounter
--- OUTSIDE RECORDS SUMMARY | 2025-04-19 12:21 | XMS_ITS | Encounter Summary ---
Author Organization [facility] Address [address] [place] [address] Phone Care Team Providers Care Electrical And Radio Aircraft Mechanic Name Role Phone Owen Peña Primary Care Provider Encounter Details Date Type Department Care Team (Late st Contact Info) Description 02/18/2020 Orders Only [facility] [address] [place] [address] Conversion, Onbase Social History Tobacco Use Types [...] r Schedule OUTSIDE LAB SCAN Lab Ordered: 02/18/2020 documented as of this encounter Visit Diagnoses Not on filedocumented in this encounter Care Teams Electrical And Radio Aircraft Mechanic Relationship Specialty Start Date End Date Owen Peña APRN-CNP [address] [place] [phone] PCP - General 12/21/21 documented as of this encounter
--- OUTSIDE RECORDS SUMMARY | 2025-04-19 12:21 | XMS_ITS | Clinical Summary ---
Author Organization [facility] Address [address] [place] [address] Care Team Providers Care Verifier Name Role Phone Beto Baptiste MD Unavailable [phone] Owen Peña CNP Unavailable Social History Tobacco Use Types Packs/Day Years Used Date Smoking Tobacco: Never Assessed Comments Unknown Sex and Gender Information Value Date Recorded Sex Assigned at Not on file Legal Sex Female 8:30 AM EDT Gender Identity Not on file Sexual Orientation Not on file Plan of Treatment Not on file Insurance [employer] Care Teams Verifier Relationship Specialty Start Date End Date Beto Baptiste MD [address] [place] [phone] Pta Cardiology 12/06/20 Owen Peña CNP [address] [place] [phone] Referring Emergency Medicine 05/20/22
--- OUTSIDE RECORDS SUMMARY | 2025-04-19 12:21 | XMS_ITS | Encounter Summary ---
Author Organization [facility] Address [address] [place] [address] Phone Care Team Providers Care Drill Doctor Name Role Phone Owen Peña Primary Care Provider Encounter Details Date Type Department Care Team (Late st Contact Info) Description 08/10/2019 Orders Only [facility] [address] [place] [address] Conversion, Onbase Social History Tobacco Use Types [...] r Schedule OUTSIDE LAB SCAN Lab Ordered: 08/10/2019 documented as of this encounter Visit Diagnoses Not on filedocumented in this encounter Care Teams Drill Doctor Relationship Specialty Start Date End Date Owen Peña APRN-CNP [address] [place] [phone] PCP - General 12/21/21 documented as of this encounter
--- OUTSIDE RECORDS SUMMARY | 2025-04-19 12:21 | XMS_ITS | Encounter Summary ---
Author Organization [facility] Address [address] [place] [address] Phone Care Team Providers Care Freezer Operator Name Role Phone Owen Peña Primary Care Provider Encounter Details Date Type Department Care Team (Late st Contact Info) Description 01/25/2021 Orders Only [facility] [address] [place] [address] Conversion, Onbase Social History Tobacco Use Types [...] r Schedule OUTSIDE LAB SCAN Lab Ordered: 01/25/2021 documented as of this encounter Visit Diagnoses Not on filedocumented in this encounter Care Teams Freezer Operator Relationship Specialty Start Date End Date Owen Peña APRN-CNP [address] [place] [phone] PCP - General 12/21/21 documented as of this encounter
--- OUTSIDE RECORDS SUMMARY | 2025-04-19 12:21 | XMS_ITS | Encounter Summary ---
Author Organization [facility] Address [address] [place] [address] Phone Care Team Providers Care Bandoleer Packer Name Role Phone Owen Peña Primary Care Provider Encounter Details Date Type Department Care Team (Late st Contact Info) Description 04/14/[address] [facility] [address] [place] [address] Conversion, Onbase Social History Tobacco Use Types [...] r Schedule OUTSIDE LAB SCAN Lab Ordered: 04/14/2019 documented as of this encounter Visit Diagnoses Not on filedocumented in this encounter Care Teams Bandoleer Packer Relationship Specialty Start Date End Date Owen Peña APRN-CNP [address] [place] [phone] PCP - General 12/21/21 documented as of this encounter
--- OUTSIDE RECORDS SUMMARY | 2025-04-19 12:21 | XMS_ITS | Encounter Summary ---
Author Organization [facility] Address [address] [place] [address] Phone Care Team Providers Care Air Hammer Operator Name Role Phone Owen Peña Primary Care Provider Encounter Details Date Type Department Care Team (Late st Contact Info) Description 05/11/2022 Orders Only [facility] [address] [place] [address] Conversion, Onbase Social History Tobacco Use Types [...] r Schedule OUTSIDE LAB SCAN Lab Ordered: 05/11/2022 documented as of this encounter Visit Diagnoses Not on filedocumented in this encounter Care Teams Air Hammer Operator Relationship Specialty Start Date End Date Owen Peña APRN-CNP [address] [place] [phone] PCP - General 12/21/21 documented as of this encounter
--- OUTSIDE RECORDS SUMMARY | 2025-04-19 12:21 | XMS_ITS | Encounter Summary ---
Author Organization [facility] Address [address] [place] [address] Care Team Providers Care Line Haul Driver Name Role Phone [facility] Primary Car e Provider Encounter Details Date Type Department Care Team ([facility] Contact Info) Description 06/27/2023 Abstract [facility] [address] [facility] [address] [place] [phone] Tien Garcia, DO [address] [facility] [address] [place] [address] Social History Tobacco Use Types Packs/Day Years [...] Upcoming Encounters Date Type Department Care Team ([facility] Contact Info) Description 05/31/2025 2:00 PM EDT Office Visit [facility] [address] [place] [phone] Tien Garcia DO [address] [facility] [address] [place] [address] documented as of this encounter Visit Diagnoses Not on filedocumented in this encounter Care Teams Line Haul Driver Relationship Specialty Start Date End Date [facility] [address] [place] [phone] PCP - General 05/21/23 documented as of this encounter
--- OUTSIDE RECORDS SUMMARY | 2025-04-19 12:21 | XMS_ITS | Encounter Summary ---
Author Organization [facility] Address [address] [place] [address] Phone Care Team Providers Care Manager Psychiatry Name Role Phone Owen Peña Primary Care Provider Encounter Details Date Type Department Care Team (Late st Contact Info) Description 05/27/2019 Orders Only [facility] [address] [place] [address] Conversion, Onbase Social History Tobacco Use Types [...] r Schedule OUTSIDE LAB SCAN Lab Ordered: 05/27/2019 documented as of this encounter Visit Diagnoses Not on filedocumented in this encounter Care Teams Manager Psychiatry Relationship Specialty Start Date End Date Owen Peña APRN-CNP [address] [place] [phone] PCP - General 12/21/21 documented as of this encounter
--- OUTSIDE RECORDS SUMMARY | 2025-04-19 12:21 | XMS_ITS | Encounter Summary ---
Author Organization [facility] Address [address] [place] [address] Phone Care Team Providers Care Agricultural Research Director Name Role Phone Owen Peña Primary Care Provider Encounter Details Date Type Department Care Team (Late st Contact Info) Description 07/14/2019 Orders Only [facility] [address] [place] [address] Conversion, Onbase Social History Tobacco Use Types [...] r Schedule OUTSIDE LAB SCAN Lab Ordered: 07/14/2019 documented as of this encounter Visit Diagnoses Not on filedocumented in this encounter Care Teams Agricultural Research Director Relationship Specialty Start Date End Date Owen Peña APRN-CNP [address] [place] [phone] PCP - General 12/21/21 documented as of this encounter
== END 2025-04-19 12:13 | disposition home or self-care (01) ==
LOC: CARD 12:14
PROVIDERS: PCP Nurse Practitioner Family; Visit Provider Nurse Practitioner Family
DX: R00.2 Palpitations (principal)
CPT/HCPCS: 93242

== ENCOUNTER 2025-07-10 17:08 | Emergency (ER) | payer OTHER, SELFPAY ==
--- OUTSIDE RECORDS SUMMARY | 2025-07-05 17:00 | XMS_ITS | Encounter Summary ---
Author Organization [facility] Address [address] [place] [address] Care Team Providers Care Java Web User Interface Developer Name Role Phone [facility] Primary Car e Provider Encounter Details DateTypeDepartmentCare Team (Latest Contact Info)Ceuwgufnayk38/24/2025 5:00 PM ESTAncillary Procedure [facility] [address] [place] [address] Encounter for screening mammogram for malignant neoplasm of breast Social History Tobacco UseTypesPacks/DayYears UsedDateSmoking Tobacco: FormerCigarettes Smokeless Tobacco: NeverAlcohol UseStandard Drinks/WeekCommentsNot Currently0 (1 standard drink = 0.6 oz pure alcohol)No longer drinkAUDIT-CAnswerDate Recorded Q1: How often do you have a drink containing alcohol?Never05/06/2023Q2: How many drinks containing alcohol do you have on a typical day when you are drinking? Patient does not drink05/06/2023Q3: How often do you have six or more drinks on one occasion?Never3PHQ-2AnswerDate RecordedPatient Health Questionnaire-2 [id number] and Gender Information ValueDate RecordedSex Assigned at BirthNot on fileLegal JuxVlkvgx83/15/2023 7:11 PM EDTGender IdentityNot on fileSexual OrientationNot on filedocumented as of this encounter Plan of Treatment DateTypeDepartmentCare Team (Latest Contact Info)Cnjiedirqab89/26/2026 2:00 PM EDTOffice Visit [facility] [address] [place] [phone] ViridianaTien sandoval, DO [address] [place] [address] documented as of this encounter Procedures Procedure NamePriorityDate/TimeAssociated DiagnosisCommentsBI MAMMOGRAM SCREENING TOMOSYNTHESIS ZCELEXPPYSchyxsk06/24/2025 5:02 PM EST Encounter for screening mammogram for malignant neoplasm of breast documented in this encounter Results * Bilateral screening mammogram with tomosynthesis (07/05/2025 5:02 PM EST) Anatomical RegionLateralityModalityBreastBilateralMammographySpecimen (Source) Anatomical Location / LateralityCollection Method / VolumeCollection Time Received Time07/06/2025 11:00 AM EST Impressions 07/06/2025 11:08 AM EST BI-RADS 1- ??NEGATIVE. ROUTINE FOLLOW-UP MAMMOGRAPHY IS SUGGESTED IN ONE YEAR. DENSITY: There are scattered areas of fibroglandular density. Board Certified Radiologists. ??Accredited by the ACR and FDA. MAMMOGRAPHY IS VERY IMPORTANT TO YOUR HEALTH. ??THE [employer] GUIDELINES RECOMMEND THAT WOMEN 40 YEARS OF AGE AND OLDER SHOULD HAVE A MAMMOGRAM EVERY YEAR. A REMINDER LETTER WILL BE SENT AT THE APPROPRIATE TIME. ?? A REMINDER LETTER WILL BE SENT AT THE APPROPRIATE TIME. ??THIS FACILITY UTILIZES A REMINDER SYSTEM TO ENSURE ALL PATIENTS RECEIVE REMINDER NOTIFICATIONS AT THE APPROPRIATE TIME BASED ON THE RECOMMENDATIONS OF THIS EXAM. THIS INCLUDES REMINDERS FOR ROUTINE SCREENING MAMMOGRAMS, DIAGNOSTIC MAMMOGRAMSIN WHICH THE PATIENT IS ASKED TO RETURN FOR ADDITIONAL VIEWS, OR OTHER BREAST IMAGING INTERVENTIONSWHEN APPROPRIATE. THE PATIENT WILL BE PLACED IN THE APPROPRIATE REMINDER SYSTEM INCLUDING A REMINDER AT THE APPROPRIATE TIME FOR ANY PENDING ADDITIONAL VIEWS. ELECTRONICALLY SIGNED BY: Lorenzo Cesar DO Narrative 07/06/2025 11:08 AM EST BI MAMMOGRAM SCREENING TOMOSYNTHESIS BILATERAL:07/05/2025 4:55 PM CLINICAL HISTORY:screening. COMPARISONS: August 20, 2019; July 03, 2024. TECHNIQUE: ??Routine full field 3D breast tomosynthesis was performed bilaterally. FINDINGS: ?? Scattered fibroglandular densities are noted with stable asymmetry. There are no developing masses, suspicious microcalcifications, or areas of architectural distortion identified on today's examination. There is no significant change when compared to the prior examinations identified, given differences in technique and positioning. Procedure Note Lorenzo Cesar DO - 07/06/2025 BI MAMMOGRAM SCREENING TOMOSYNTHESIS BILATERAL:07/05/2025 4:55 PM CLINICAL HISTORY:screening. COMPARISONS: August 20, 2019; July 03, 2024. TECHNIQUE: Routine full field 3D breast tomosynthesis was performedbilaterally. FINDINGS: Scattered fibroglandular densities are noted with stable asymmetry. There are no developing masses, suspicious microcalcifications, or areasof architectural distortion identified on today's examination. There is no significant change when compared to the prior examinations identified, given differences in technique and positioning. IMPRESSION: BI-RADS 1- NEGATIVE. ROUTINE FOLLOW-UP MAMMOGRAPHY IS SUGGESTED IN ONE YEAR. DENSITY: There are scattered areas of fibroglandular density. Board Certified Radiologists. Accredited by the ACR and FDA. MAMMOGRAPHY IS VERY IMPORTANT TO YOUR HEALTH. THE [employer] GUIDELINES RECOMMEND THAT WOMEN 40 YEARS OF AGE AND OLDER SHOULD HAVE AMAMMOGRAM EVERY YEAR. A REMINDER LETTER WILL BE SENT AT THE APPROPRIATE TIME. A REMINDER LETTER WILL BE SENT AT THE APPROPRIATE TIME. THIS FACILITYUTILIZES A REMINDER SYSTEM TO ENSURE ALL PATIENTS RECEIVE REMINDERNOTIFICATIONS AT THE APPROPRIATE TIME BASED ON THE RECOMMENDATIONS OF THISEXAM. THIS INCLUDES REMINDERS FOR ROUTINE SCREENING MAMMOGRAMS, DIAGNOSTICMAMMOGRAMS IN WHICH THE PATIENT IS ASKED TO RETURN FOR ADDITIONAL VIEWS,OR OTHER BREAST IMAGING INTERVENTIONS WHEN APPROPRIATE. THE PATIENT WILLBE PLACED IN THE APPROPRIATE REMINDER SYSTEM INCLUDING A REMINDER AT THEAPPROPRIATE TIME FOR ANY PENDING ADDITIONAL VIEWS. ELECTRONICALLY SIGNED BY: Lorenzo Cesar DO Authorizing ProviderResult TypeResult StatusRichard A Visci DOIMG BI PROCEDURES Final Result documented in this encounter Visit Diagnoses Diagnosis Encounter for screening mammogram for malignant neoplasm of breast documented in this encounter Care Teams Team MemberRelationshipSpecialtyStart DateEnd [facility] [address] [place] [phone] PCP - Hvhpfsl86/10/23documented as of this encounter
--- OUTSIDE RECORDS SUMMARY | 2025-07-07 03:59 | XMS_ITS | Continuity of Care Document ---
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 [facility], [address] [place] [address], [id number] , [place] tel: [phone] COVID [facility] Encounter For Screening For [facility] 2 [facility] [address], [place], [id number] , [place]. tel:+ [phone] OFFICE/OUTPA TIENT VISIT, [facility], [address], [place], [id number] , [place] tel:+ [phone] [facility] Problem Visit (chief complaint) Community acquired pneumonia of left lower lobe of lungAsthmaBody mass index [BMI] 31.0-31.9, adult 2 Charleen Edgar. [address], [place], [id number] , [place]. tel:+ [phone] OFFICE/OUTPA TIENT VISIT, [facility], [address] [place] [address], [id number] , [place] tel: [phone] [facility] Short of breath/cough (chief complaint) Body mass index [BMI] 31.0-31.9, adultBronchitisAst hma 1 Willam Pérez. [address] [place] [address], [id number] , [place]. tel: [phone] [facility], [address] [place] [address], [id number] , [place] tel: [phone] COVID [facility] Encounter For Screening For Covid-19 1 [facility] [address], [place], [id number] , [place]. tel: [phone] OFFICE/OUTPA TIENT VISIT, [facility], [address] [place] [address], [id number] , [place] tel: [phone] [facility] b/p check (chief complaint) Body mass index [BMI] 31.0-31.9, adultHypertension, unspecified typeWheezingShortn ess of breathNeuropathy 1 Charleen Edgar. [address], [place], [id number] , [place]. tel: [phone] OFFICE/OUTPA TIENT VISIT, [facility], [address], [place], [id number] , [place] tel: [phone] [facility] Mouth issues (chief complaint) Body mass index [BMI] 32.0-32.9, adultThrushHyperte nsion, unspecified typeSituational mixed anxiety and depressive disorder 1 Charleen Edgar. [address], [place], [id number] , [place]. tel: [phone] OFFICE/OUTPA TIENT VISIT, [facility], [address], [place], [id number] , [place] tel: [phone] [facility] Resp issues (chief complaint) Body mass index [BMI] 33.0-33.9, adultCoughThrush 1 Charleen Edgar. [address] [place] [address], [id number] , [place]. tel: [phone] OFFICE/OUTPA TIENT VISIT, [facility], [address], [place], [id number] , [place] tel: [phone] [facility] Acute (chief complaint) Body mass index [BMI] 33.0-33.9, adultAcute bronchiolitis, unspecifiedExacerb ation of asthma, unspecified asthma severity, unspecified whether persistent 1 Willam Pérez. [address] [place] [address], [id number] , [place]. tel: [phone] OFFICE/OUTPA TIENT VISIT, [facility], [address] [place] [address], [id number] , [place] tel: [phone] [facility] Med Refill (chief complaint) Post-nasal drainageNeuropathy Situational mixed anxiety and depressive disorder 1 Charleen Edgar. [address] [place] [address], [id number] , [place]. tel: [phone] OFFICE/OUTPA TIENT VISIT, [facility], [address] [place] [address], [id number] , [place] tel: [phone] [facility] Follow-Up (chief complaint) Atrial fibrillation, unspecified typeHypertension, unspecified typeNeuropathySitu ational mixed anxiety and depressive disorderGastro-eso phageal reflux disease without esophagitis 1 Charleen Edgar. [address] [place] [address], [id number] , [place]. tel: [phone] OFFICE/OUTPA TIENT VISIT, [facility], [address] [place] [address], [id number] , [place] tel: [phone] [facility] telehealth (chief complaint) Cough 1 Charleen Edgar. [address] [place] [address], [id number] , [place]. tel: [phone] OFFICE/OUTPA TIENT VISIT, [facility], [address] [place] [address], [id number] , [place] tel: [phone] [facility] covid exposure (chief complaint) CoughChest tightnessFatigue, unspecified typeWheezingEncoun ter for screening for other viral disease 0 Charleen Edgar. [address] [place] [address], [id number] , [place]. tel: [phone] OFFICE/OUTPA TIENT VISIT, [facility], [address] [place] [address], [id number] , [place] tel: [phone] [facility] UTI SX (chief complaint) Body mass index [BMI] 34.0-34.9, adultDysuriaUrinar y frequency 0 Charleen Edgar. [address] [place] [address], [id number] , [place]. tel: [phone] OFFICE/OUTPA TIENT VISIT, [facility], [address] [place] [address], [id number] , [place] tel: [phone] [facility] f/u GERD (chief complaint) Body mass index [BMI] 34.0-34.9, adultAnnual physical examGastro-esophag eal reflux disease without esophagitisHyperte nsion, unspecified typeVertigo 0 Charleen Edgar. [address], [place], [id number] , . tel: [phone] OFFICE/OUTPA TIENT VISIT, [facility], [address], [place], [id number] , [place] tel: [phone] [facility] problem visit (chief complaint) Body mass index (BMI) 34.0-34.9, adultGastro-esopha geal reflux disease without esophagitis 0 Charleen Edgar. [address] [place] [address], [id number] , [place]. tel: [phone] OFFICE/OUTPA TIENT VISIT, [facility], [address], [place], [id number] , [place] tel: [phone] [facility] annual exam (chief complaint) Body mass index (BMI) 34.0-34.9, [facility] woman check w/o abnormal findingHematoma of left breast 0 Jimbo Mendoza. [address] [place] [address], [id number] , [place]. tel: [phone] OFFICE/OUTPA TIENT VISIT, [facility], [address] [place] [address], [id number] , [place] tel: [phone] [facility] mask issues (chief complaint) Body mass index (BMI) 34.0-34.9, adultAtrial fibrillation, unspecified type 0 Soto Buckley. [address] [place] [address], [id number] , [place]. tel: [phone] [facility], [address] [place] [address], [id number] , [place] tel: [phone] [facility] Encounter for screening for dental disorders 0 Blelo Henry. [address], [place], [id number] , [place]. tel: [phone] [facility], [address], [place], [id number] , [place] tel: [phone] [facility] post op (chief complaint) Encounter for screening for dental disorder 0 Bello Henry. [address], [place], [id number] , [place]. tel: [phone] [facility], [address], [place], [id number] , [place] tel: [phone] [facility] post op (chief complaint) Encounter for screening for dental disorder 0 Bello Henry. [address], [place], [id number] , [place]. tel: [phone] [facility], [address] [place] [address], [id number] , [place] tel: [phone] [facility] ext (chief complaint) Encounter for screening for dental disorders 0 Bello Henry. [address], [place], [id number] , [place]. tel: [phone] OFFICE/OUTPA TIENT VISIT, EST [facility], [address], [place], [id number] , [place] tel: [phone] [facility] Skin Tag (chief complaint) Body mass index (BMI) 35.0-35.9, adultLow back pain 0 Charleen Edgar. [address], [place], [id number] , [place]. tel: [phone] [facility], [address], [place], [id number] , [place] tel: [phone] [facility] Filling Appt. (chief complaint) Encounter for screening for dental disorders 0 Fernandez Kaba. [address] [place], [place], [id number] , [place]. tel: [phone] [facility], [address], [place], [id number] , [place] tel: [phone] [facility] sin tag removal (chief complaint) Body mass index (BMI) 35.0-35.9, adultAcrochordon 7- 0 Charleen Edgar. [address], [place], [id number] , [place]. tel: [phone] OFFICE/OUTPA TIENT VISIT, EST [facility], [address], [place], [id number] , [place] tel: [phone] [facility] med refill (chief complaint) Body mass index (BMI) 35.0-35.9, adultHypertension, unspecified typeNeuropathyAtri al fibrillation, unspecified type 9 Charleen Edgar. [address], [place], [id number] , [place]. tel: [phone] [facility], [address], [place], [id number] , [place] tel: [phone] [facility] Clinic Encounter for screening for dental disorders - 9 Fernandez Kaba. [address] [place], [place], [id number] , [place]. tel: [phone] [facility], [address] [place] [address], [id number] , [place] tel: [phone] [facility] Encounter for screening for dental disorders 2 9 Bello Henry. [address], [place], [id number] , [place]. tel: [phone] [facility], [address] [place] [address], [id number] , [place] tel: [phone] [facility] Dental New (chief complaint) Encounter for screening for dental disorders 0-201 9 Paul Maddox. [address] [place] [address], [id number] , [place]. tel: [phone] OFFICE/OUTPA TIENT VISIT, [facility], [address], [place], [id number] , [place] tel: [phone] [facility] skin tag removal (chief complaint) Left foot painSkin lesionBody mass index (BMI) 35.0-35.9, adultAcrochordon 9 Charleen SQUIRES-Angie Edgar. [address], [place], [id number] , [place]. tel: [phone] OFFICE/OUTPA TIENT VISIT, [facility], [address], [place], [id number] , [place] tel: [phone] [facility] med f/u (chief complaint)hyp ertension (chief complaint) Well adult health checkLow back painNeuropathyBody mass index (BMI) 35.0-35.9, adultAcute pain of left shoulder 9 Eliuckdre SQUIRES-Angie Edgar. [address] [place] [address], [id number] , [place]. tel: [phone] [facility], [address] [place] [address], [id number] , [place] tel: [phone] [facility] Neuropathy 9 Charleen Edgar. [address] [place] [address], [id number] , [place]. tel: [phone] OFFICE/OUTPA TIENT VISIT, [facility], [address], [place], [id number] , [place] tel: [phone] [facility] b/p check and med refill (chief complaint) Body mass index (BMI) 34.0-34.9, adultHypertension, unspecified typeGeographic tongue 9 Charleen Edgar. [address] [place] [address], [id number] , [place]. tel: [phone] OFFICE/OUTPA TIENT VISIT, [facility], [address] [place] [address], [id number] , [place] tel:+ [phone] [facility] Hysterectomy Consult (chief complaint) Body mass index (BMI) 34.0-34.9, adult 9- 9 [facility] DO Chauhan. [address], [place], [id number] , [place]. tel: [phone] [facility], [address] [place] [address], [id number] , [place] tel: [phone] [facility] urine sample (chief complaint) Dysuria 201 9 Charleen Edgar. [address] [place] [address], [id number] , [place]. tel: [phone] OFFICE/OUTPA TIENT VISIT, [facility], [address] [place] [address], [id number] , [place] tel: [phone] [facility] hosp f/u (chief complaint) VertigoBody mass index (BMI) 34.0-34.9, adult 7-201 9 Casey Weaver. [address] [place] [address], [id number] , [place]. tel: [phone] [facility], [address] [place] [address], [id number] , [place] tel: [phone] [facility] abnormal pap smear (chief complaint)Col poscopy (chief complaint) Body mass index (BMI) 35.0-35.9, adultASCUS on pap smear of cervixHPV (human papilloma virus) infectionCervical high risk HPV DNA test positive 0- 9 [facility] DO Chauhan. [address] [place] [address], [id number] , [place]. tel: [phone] OFFICE/OUTPA TIENT VISIT, [facility], [address], [place], [id number] , [place] tel: [phone] [facility] swelling of tongue and throat (chief complaint) Body mass index (BMI) 34.0-34.9, adultMucosal irritation of oral cavityBruise 9 [place] JAYLEN Weaver. [address], [place], [id number] , [place]. tel: [phone] [facility], [address], [place], [id number] , [place] tel: [phone] [facility] f/u sick visit (chief complaint) Body mass index (BMI) 34.0-34.9, adultUpper respiratory tract infection, unspecified typeOral pain 9 Casey Weaver. [address] [place] [address], [id number] , [place]. tel: [phone] [facility], [address] [place] [address], [id number] , [place] tel: [phone] [facility] cold sx (chief complaint) Body mass index (BMI) 34.0-34.9, adultUpper respiratory tract infection, unspecified type 9 [place] JAYLEN Weaver. [address], [place], [id number] , [place]. tel: [phone] [facility], [address] [place] [address], [id number] , [place] tel: [phone] [facility] F/u (chief complaint) Body mass index (BMI) 35.0-35.9, adultHospital discharge follow-upAtrial fibrillation, unspecified type 9 Charleen Edgar. [address] [place] [address], [id number] , [place]. tel: [phone] PREV VISIT, EST, AGE [age] [facility], [address] [place] [address], [id number] , [place] tel:+ [phone] [facility] annual exam (chief complaint) Encounter for screening mammogram for Ca of breastBody mass index (BMI) 34.0-34.9, adultEncntr for detacher exam (general) (routine) w/o abn findings- STD liefstyle code- STD screen 9 [facility] Kelly. [address] [place] [address], [id number] , [place]. tel:+ [phone] OFFICE/OUTPA TIENT VISIT, [facility], [address] [place] [address], [id number] , [place] tel:+ [phone] [facility] throat (chief complaint) Body mass index (BMI) 35.0-35.9, adultCough 8 Charleen Edgar. [address] [place] [address], [id number] , [place]. tel:+ [phone] OFFICE/OUTPA TIENT VISIT, [facility], [address] [place] [address], [id number] , [place] tel:+ [phone] [facility] bronchitis follow up (chief complaint) Body mass index (BMI) 35.0-35.9, adultBronchitisAst hmaCough 8 Prieto Cruz. [address] [place] [address], [id number] , [place]. tel:+ [phone] OFFICE/OUTPA TIENT VISIT, [facility], [address] [place] [address], [id number] , [place] tel:+ [phone] [facility] abnormal pap smear (chief complaint) Body mass index (BMI) 33.0-33.9, adultASCUS on pap smear of cervix [facility] Kelly. [address] [place] [address], [id number] , [place]. tel:+ [phone] OFFICE/OUTPA TIENT VISIT, [facility], [address] [place] [address], [id number] , [place] tel:+ [phone] [facility] lab review (chief complaint)rig ht foot (chief complaint)spo ts on fingers (chief complaint)Hac ker (chief complaint) Pain, foot, right, chronicBody mass index (BMI) 34.0-34.9, adultPrediabetesHy pertension, unspecified type 8 Charleen Edgar. [address], [place], [id number] , [place]. tel: [phone] [facility], [address] [place] [address], [id number] , [place] tel: [phone] [facility] labs (chief complaint) No Information 8- 8 Charleen Edgar. [address] [place] [address], [id number] , [place]. tel: [phone] [facility], [address] [place] [address], [id number] , [place] tel: [phone] [facility] urinary complaints (chief complaint) Body mass index (BMI) 34.0-34.9, adultUrinary tract infection without hematuria, site unspecified 8 Charleen Edgar. [address] [place] [address], [id number] , [place]. tel: [phone] [facility], [address] [place] [address], [id number] , [place] tel: [phone] [facility] sick (chief complaint)[place]: (chief complaint) CoughShortness of breathSore throatFatigue, unspecified typeDysuria 0- 8 Moody Moore. [address] [place] [address], [id number], [place]. tel: [phone] [facility], [address] [place] [address], [id number] , [place] tel: [phone] [facility] pneumonia follow up (chief complaint)scr eenings (chief complaint) AsthmaHTNPneumonia due to infectious organism, unspecified laterality, unspecified part of lungLow back pain Oct-2 3-201 8 Leticia Newby. [address] [place] [address], [id number], [place]. tel: [phone] [facility], [address] [place] [address], [id number] , [place] tel: [phone] [facility] sick follow up (chief complaint)low back (chief complaint)Den nison: (chief complaint) AsthmaGastro-esoph ageal reflux disease without esophagitisHTNPneu monia due to infectious organism, unspecified laterality, unspecified part of lung Oct-0 8 Leticia Newby. [address] [place] [address], [id number], [place]. tel: [phone] [facility], [address] [place] [address], [id number] , [place] tel: [phone] [facility] ER follow up (chief complaint)ER follow-up (chief complaint) Pneumonia due to infectious organism, unspecified laterality, unspecified part of lung Mar-0 8 Moody Moore. [address] [place] [address], [id number], [place]. tel: [phone] PREV VISIT, EST, AGE [age] [facility], [address] [place] [address], [id number] , [place] tel: [phone] [facility] annual exam (chief complaint) Encntr for detacher exam (general) (routine) w/o abn findingsEncounter for screening mammogram for Ca of breast- STD screen- STD liefstyle codeUrinary frequency 8 Jimbo JEFERSON Mendoza. [address] [place] [address], [id number] , [place]. tel: [phone] OFFICE/OUTPA TIENT VISIT, EST [facility], [address] [place] [address], [id number] , [place] tel: [phone] [facility] sore throat (chief complaint) Acute pharyngitis, unspecifiedAcute pharyngitis, unspecified 7 Prieto Cruz. [address] [place] [address], [id number] , [place]. tel: [phone] [facility], [address] [place] [address], [id number] , [place] tel: [phone] [facility] swollen finger (chief complaint) Cellulitis of finger 7 Prieto Cruz. [address] [place] [address], [id number] , [place]. tel: [phone] OFFICE/OUTPA TIENT VISIT, [facility], [address] [place] [address], [id number] , [place] tel: [phone] [facility] leg pain (chief complaint) Unspecified injury of left lower leg, sequela 7 Prieto Cruz. [address] [place] [address], [id number] , [place]. tel: [phone] OFFICE/OUTPA TIENT VISIT, [facility], [address] [place] [address], [id number] , [place] tel: [phone] [facility] dizziness/los e balance (chief complaint)daniel k pain (chief complaint) Low back painVertigo Prieto Cruz. [address] [place] [address], [id number] , [place]. tel: [phone] OFFICE/OUTPA TIENT VISIT, [facility], [address] [place] [address], [id number] , [place] tel: [phone] [facility] est care (chief complaint) HTNAsthmaGastro-es ophageal reflux disease without esophagitisEncount er for adult annual physical exam w/ abnormal finding Prieto Cruz. [address] [place] [address], [id number] , [place]. tel: [phone] Family History Family Member Type Diagnosis Age At Onset Father Problem (finding) hypertension Father Problem (finding) Alive and well Father Problem (finding) Eczema Mother Problem (finding) Alive and well Father Problem (finding) asthma Father Problem (finding) hypercholesterolemia Immunizations Vaccine Date Status Comments Fluarix/Flulaval refused Source: New Immunization Record Fluarix/Flulaval refused Source: New Immunization Record Fluarix/Flulaval [...] influenza, unspecified formulation administered Source: Other Regist Payers Payer name Insurance type Covered democrat ID Authoriza tion(s) [employer] CI [id number] [employer] CI [id number] [facility] CI [id number] [facility] CI [id number] [place] [employer] [id number] Medicaid Wrap - [facility] MC [id number] Self Pay Cap 09 [id number] Self Pay Cap [id number] Self Pay Cap [id number] Medicaid Primary - [facility] MC [id number] Self Pay Cap 09 [id number] Medicaid Wrap - [facility] MC [id number] Social History Type Description Quantity Date Captured Comments Alcohol Use Details Unknown Caffeine Use Details Unknown Tobacco Use Status No Information Smoking Status No Information Sex Female Sexual Orientation Straight or heterosexual Gender Identity Female Chief Complaint And Reason For Visit No Information Reason For Referral Reason For Referral No Information Plan Of Treatment Date Type Action Status Goal Unhealthy drug use screening . Due on due Goal Depression screening. Due on due Goal HPV. Due on due Goal Influenza vaccine. Due on due Goal Tdap Vaccine. Due on 2031 due Goal Lipid panel. Due on due Goal Mammogram. Due on due Goal Zoster vaccine (). Due on due Goal Hepatitis C screening. Due o n due Goal Colonoscopy. Due on due Goal ECG. Due on due Goal Diabetes screening. Due on N due Goal Tdap due Goal PRAPARE ASSESSMENT. Due on N due Goal Urinalysis due Goal Tdap Vaccine. Due on 2031 due Goal Zoster vaccine (). Due on due Goal Urinalysis due Goal Diabetes screening. Due on N due Goal Unhealthy drug use screening . Due on due Goal Depression screening. Due on due Goal Hep A. Due on du e Goal Colonoscopy. Due on due Goal ECG. Due on due Goal Lipid panel. Due on due Goal Hepatitis C screening. Due o n due Goal PRAPARE ASSESSMENT. Due on N due Goal HPV. Due on due Goal Tdap due Goal Influenza vaccine. Due on due Goal Mammogram. Due on 0 due Goal Lifestyle education regardin g diet completed Goal HPV. Due on due Goal ECG. Due on due Goal PRAPARE ASSESSMENT. Due on due Goal Diabetes screening. Due on due Goal Tdap due Goal Unhealthy drug use screening . Due on due Goal Influenza vaccine. Due on due Goal Zoster vaccine (). Due on due Goal Urinalysis due Goal Tdap Vaccine. Due on 2031 due Goal Mammogram. Due on 0 due Goal Lipid panel. Due on due Goal Colonoscopy. Due on due Goal Depression screening. Due on due Goal Hepatitis C screening. Due o n due Goal Dietary management education , guidance, and counseling completed Goal HPV. Due on due Goal Hep A. Due on du e Goal Unhealthy drug use screening . Due on due Goal Colonoscopy. Due on due Goal Mammogram. Due on 0 due Goal PRAPARE ASSESSMENT. Due on due Goal Lipid panel. Due on due Goal Depression screening. Due on due Goal Zoster vaccine (). Due on due Goal Hepatitis C screening. Due o n due Goal Tdap due Goal Influenza vaccine. Due on Au due Goal Tdap Vaccine. Due on 2031 due Goal Diabetes screening. Due on A due Goal Urinalysis due Goal ECG. Due on due Goal Dietary management education , guidance, and counseling completed Goal Hep A. Due on du e Goal Depression screening. Due on due Goal Hepatitis C screening. Due o n due Goal Tdap Vaccine. Due on 2031 due Goal Mammogram. Due on due Goal Influenza vaccine. Due on due Goal Lipid panel. Due on 030 due Goal Unhealthy drug use screening . Due on due Goal Zoster vaccine (). Due on due Goal HPV. Due on due Goal Colonoscopy. Due on 033 due Goal PRAPARE ASSESSMENT. Due on due Goal Tdap due Goal ECG. Due on due Goal Urinalysis due Goal Diabetes screening. Due on due Goal Dietary management education , guidance, and counseling completed Goal PRAPARE ASSESSMENT. Due on due Goal Unhealthy drug use screening . Due on due Goal Zoster vaccine (1st). Due on due Goal Hepatitis C screening. Due o n due Goal Tdap Vaccine. Due on 2031 due Goal HPV. Due on due Goal Tdap due Goal Lipid panel. Due on due Goal Colonoscopy. Due on due Goal Influenza vaccine. Due on In due Goal Depression screening. Due on due Goal Mammogram. Due on due Goal Diabetes screening. Due on due Goal ECG. Due on due Goal Urinalysis due Goal Dietary management education , guidance, and counseling completed Goal Influenza vaccine. Due on In due Goal Hepatitis C screening. Due o n due Goal ECG. Due on due Goal Urinalysis due Goal PRAPARE ASSESSMENT. Due on due Goal Mammogram. Due on 0 due Goal Tdap due Goal Zoster vaccine (). Due on due Goal Hep A. Due on du e Goal HPV. Due on due Goal Diabetes screening. Due on due Goal Unhealthy drug use screening . Due on due Goal Lipid panel. Due on due Goal Tdap Vaccine. Due on 2031 due Goal Colonoscopy. Due on due Goal Depression screening. Due on due Goal Lifestyle education regardin g diet completed Goal PRAPARE ASSESSMENT. Due on due Goal Depression screening. Due on due Goal HPV. Due on due Goal Tdap Vaccine. Due on 2031 due Goal Colonoscopy. Due on due Goal Unhealthy drug use screening . Due on due Goal Mammogram. Due on 0 due Goal Zoster vaccine (). Due on due Goal Lipid panel. Due on 030 due Goal Tdap due Goal Hepatitis C screening. Due o n due Goal Influenza vaccine. Due on due Goal Diabetes screening. Due on due Goal Hep A. Due on du e Goal Urinalysis due Goal ECG. Due on due Goal Urinalysis due Goal Hepatitis C screening. Due o n due Goal Mammogram. Due on 0 due Goal Tdap due Goal Lipid panel. Due on 029 due Goal Colonoscopy. Due on due Goal Tdap Vaccine. Due on 2031 due Goal Depression screening. Due on due Goal Unhealthy drug use screening . Due on due Goal Zoster vaccine (). Due on due Goal Diabetes screening. Due on due Goal PRAPARE ASSESSMENT. Due on due Goal HPV. Due on due Goal Influenza vaccine. Due on due Goal ECG. Due on due Goal Tdap Vaccine. Due on 2031 due Goal Colonoscopy. Due on 033 due Goal HPV. Due on due Goal Lipid panel. Due on 030 due Goal Hepatitis C screening. Due o n due Goal Tdap due Goal Influenza vaccine. Due on due Goal Hep A. Due on du e Goal Mammogram. Due on due Goal Zoster vaccine (). Due on due Goal Unhealthy drug use screening . Due on due Goal PRAPARE ASSESSMENT. Due on due Goal Depression screening. Due on due Goal Urinalysis due Goal Diabetes screening. Due on due Goal ECG. Due on due Goal Lifestyle education regardin g diet completed Goal Hep A. Due on du e Goal Tdap Vaccine. Due on 2031 due Goal Tdap due Goal Colonoscopy. Due on due Goal Zoster vaccine (). Due on due Goal Urinalysis due Goal PRAPARE ASSESSMENT. Due on due Goal Unhealthy drug use screening . Due on due Goal Mammogram. Due on 0 due Goal Depression screening. Due on due Goal Lipid panel. Due on due Goal ECG. Due on due Goal HPV. Due on due Goal Hepatitis C screening. Due o n due Goal Diabetes screening. Due on due Goal Influenza vaccine. Due on due Goal Dietary management education , guidance, and counseling completed Goal Unhealthy drug use screening . Due on due Goal Hepatitis C screening. Due o n due Goal Influenza vaccine. Due on due Goal Tdap Vaccine. Due on 2031 due Goal Colonoscopy. Due on due Goal Depression screening. Due on due Goal Mammogram. Due on 0 due Goal Lipid panel. Due on due Goal PRAPARE ASSESSMENT. Due on N due Goal HPV. Due on due Goal Tdap due Goal Zoster vaccine (1st). Due on due Goal Diabetes screening. Due on N due Goal ECG. Due on due Goal Urinalysis due Goal Lifestyle education regardin g diet completed Goal Tdap due Goal Zoster vaccine (1st). Due on due Goal HPV. Due on due Goal Influenza vaccine. Due on Oc due Goal Mammogram. Due on due Goal Lipid panel. Due on 029 due Goal PRAPARE ASSESSMENT. Due on O due Goal Colonoscopy. Due on 033 due Goal Depression screening. Due on due Goal ECG. Due on due Goal Tdap Vaccine. Due on 2031 due Goal Unhealthy drug use screening . Due on due Goal Hepatitis C screening. Due o n due Goal Diabetes screening. Due on O due Goal Urinalysis due Goal Lifestyle education regardin g diet completed Goal Depression screening. Due on due Goal ECG. Due on due Goal Hepatitis C screening. Due o n due Goal Zoster vaccine (1st). Due on due Goal Lipid panel. Due on 029 due Goal Influenza vaccine. Due on Oc due Goal Urinalysis due Goal Tdap due Goal Colonoscopy. Due on due Goal Mammogram. Due on 0 due Goal PRAPARE ASSESSMENT. Due on O due Goal Tdap Vaccine. Due on 2031 due Goal HPV. Due on due Goal Diabetes screening. Due on O due Goal Unhealthy drug use screening . Due on due Goal ECG. Due on due Goal Hepatitis C screening. Due o n due Goal Diabetes screening. Due on O due Goal Tdap due Goal Mammogram. Due on 0 due Goal Urinalysis due Goal PRAPARE ASSESSMENT. Due on O due Goal Lipid panel. Due on 029 due Goal Influenza vaccine. Due on Oc due Goal HPV. Due on due Goal Unhealthy drug use screening . Due on due Goal Colonoscopy. Due on due Goal Tdap Vaccine. Due on 2031 due Goal Depression screening. Due on due Goal Zoster vaccine (). Due on due Goal Lifestyle education regardin g diet completed Goal Zoster vaccine (). Due on due Goal Influenza vaccine. Due on Au [id number] due Goal Unhealthy drug use screening . Due on due Goal Colonoscopy. Due on due Goal Lipid panel. Due on due Goal Tdap Vaccine. Due on 2031 due Goal Depression screening. Due on due Goal Hepatitis C screening. Due o n due Goal PRAPARE ASSESSMENT. Due on A due Goal HPV. Due on due Goal Mammogram. Due on due Goal Tdap due Goal ECG. Due on due Goal Diabetes screening. Due on A due Goal Urinalysis due Goal Dietary management education , guidance, and counseling completed Goal Tdap due Goal Urinalysis due Goal PRAPARE ASSESSMENT. Due on A due Goal Unhealthy drug use screening . Due on due Goal Mammogram. Due on due Goal ECG. Due on due Goal Tdap Vaccine. Due on 2031 due Goal Influenza vaccine. Due on due Goal Colonoscopy. Due on due Goal Diabetes screening. Due on A due Goal Zoster vaccine (). Due on due Goal Lipid panel. Due on due Goal Hepatitis C screening. Due o n due Goal HPV. Due on due Goal Depression screening. Due on due Goal Zoster vaccine (). Due on due Goal PRAPARE ASSESSMENT. Due on due Goal ECG. Due on due Goal Colonoscopy. Due on due Goal Tdap Vaccine. Due on 2031 due Goal Depression screening. Due on due Goal Influenza vaccine. Due on due Goal Unhealthy drug use screening . Due on due Goal Tdap due Goal Hepatitis C screening. Due o n due Goal Diabetes screening. Due on due Goal Lipid panel. Due on due Goal HPV. Due on due Goal Mammogram. Due on due Goal Urinalysis due Goal Depression screening. Due on due Goal PRAPARE ASSESSMENT. Due on due Goal Lipid panel. Due on due Goal Unhealthy drug use screening . Due on due Goal Tdap Vaccine. Due on 2031 due Goal HPV. Due on due Goal Tdap due Goal Zoster vaccine (). Due on due Goal Colonoscopy. Due on due Goal Mammogram. Due on 0 due Goal Hepatitis C screening. Due o n due Goal Influenza vaccine. Due on due Goal Urinalysis due Goal ECG. Due on due Goal Diabetes screening. Due on due Goal Urinalysis due Goal Diabetes screening. Due on due Goal Unhealthy drug use screening . Due on due Goal Hepatitis C screening. Due o n due Goal PRAPARE ASSESSMENT. Due on due Goal Colonoscopy. Due on due Goal Lipid panel. Due on due Goal Tdap due Goal Mammogram. Due on 0 due Goal Zoster vaccine (). Due on due Goal Depression screening. Due on due Goal Tdap Vaccine. Due on 2031 due Goal Influenza vaccine. Due on due Goal HPV. Due on due Goal ECG. Due on due Goal Lifestyle education regardin g diet completed Goal Unhealthy drug use screening . Due on due Goal Colonoscopy. Due on due Goal Tdap due Goal Lipid panel. Due on due Goal PRAPARE ASSESSMENT. Due on due Goal Hepatitis C screening. Due o n due Goal Mammogram. Due on 0 due Goal Influenza vaccine. Due on Ma due Goal Zoster vaccine (). Due on due Goal HPV. Due on due Goal Depression screening. Due on due Goal Tdap Vaccine. Due on 2031 due Goal ECG. Due on due Goal Diabetes screening. Due on M due Goal Urinalysis due Goal HPV. Due on due Goal Depression screening. Due on due Goal Hepatitis C screening. Due o n due Goal Influenza vaccine. Due on Ap due Goal Mammogram. Due on 0 due Goal Unhealthy drug use screening . Due on due Goal Tdap due Goal PRAPARE ASSESSMENT. Due on A due Goal Zoster vaccine (). Due on due Goal Colonoscopy. Due on 033 due Goal Diabetes screening. Due on A due Goal Tdap Vaccine. Due on 2031 due Goal Hep A. Due on du e Goal Lipid panel. Due on 027 due Goal Urinalysis due Goal ECG. Due on due Goal Dietary management education , guidance, and counseling completed Goal Lipid panel. Due on 027 due Goal Depression screening. Due on due Goal Mammogram. Due on 0 due Goal Urinalysis due Goal ECG. Due on due Goal Colonoscopy. Due on 033 due Goal Tdap Vaccine. Due on 2031 due Goal Influenza vaccine. Due on In due Goal Zoster vaccine (). Due on due Goal Diabetes screening. Due on due Goal Hepatitis C screening. Due o n due Goal Hep A. Due on du e Goal HPV. Due on due Goal Tdap due Goal PRAPARE ASSESSMENT. Due on due Goal Unhealthy drug use screening . Due on due Goal Lifestyle education regardin g diet completed Goal Hep A. Due on du e Goal Lipid panel. Due on due Goal Zoster vaccine (). Due on due Goal Tdap Vaccine. Due on 2031 due Goal Depression screening. Due on due Goal HPV. Due on due Goal Unhealthy drug use screening . Due on due Goal Mammogram. Due on 0 due Goal Tdap due Goal Influenza vaccine. Due on due Goal PRAPARE ASSESSMENT. Due on due Goal Colonoscopy. Due on due Goal Hepatitis C screening. Due o n due Goal Urinalysis due Goal ECG. Due on due Goal Diabetes screening. Due on due Goal Lifestyle education regardin g diet completed Goal HPV. Due on due Goal Tdap Vaccine. Due on 2031 due Goal Mammogram. Due on due Goal Hepatitis C screening. Due o n due Goal Zoster vaccine (). Due on due Goal Lipid panel. Due on due Goal Hep A. Due on du e Goal Diabetes screening. Due on due Goal Urinalysis due Goal Influenza vaccine. Due on due Goal Colonoscopy. Due on due Goal PRAPARE ASSESSMENT. Due on due Goal ECG. Due on due Goal Tdap due Goal Unhealthy drug use screening . Due on due Goal Depression screening. Due on due Goal HPV. Due on due Goal Influenza vaccine. Due on due Goal Tdap Vaccine. Due on 2031 due Goal Mammogram. Due on due Goal Lipid panel. Due on due Goal Unhealthy drug use screening . Due on due Goal Colonoscopy. Due on due Goal Zoster vaccine (). Due on due Goal Depression screening. Due on due Goal Tdap due Goal Diabetes screening. Due on due Goal Hepatitis C screening. Due o n due Goal ECG. Due on due Goal PRAPARE ASSESSMENT. Due on due Goal Urinalysis due Goal Tdap Vaccine. Due on 2031 due Goal Colonoscopy. Due on due Goal Hepatitis C screening. Due o n due Goal Zoster vaccine (). Due on due Goal Urinalysis due Goal Influenza vaccine. Due on due Goal PRAPARE ASSESSMENT. Due on due Goal HPV. Due on due Goal Tdap due Goal Hep A. Due on du e Goal Depression screening. Due on due Goal Unhealthy drug use screening . Due on due Goal Mammogram. Due on 0 due Goal Lipid panel. Due on 027 due Goal ECG. Due on due Goal Diabetes screening. Due on due Goal Lifestyle education regardin g diet completed Goal Hep A. Due on du e Goal ECG. Due on due Goal PRAPARE ASSESSMENT. Due on due Goal Tdap Vaccine. Due on 2031 due Goal Depression screening. Due on due Goal Unhealthy drug use screening . Due on due Goal Zoster vaccine (). Due on due Goal Colonoscopy. Due on 033 due Goal HPV. Due on due Goal Tdap due Goal Influenza vaccine. Due on due Goal Urinalysis due Goal Lipid panel. Due on 027 due Goal Hepatitis C screening. Due o n due Goal Mammogram. Due on 0 due Goal Diabetes screening. Due on due Goal Dietary management education , guidance, and counseling completed Goal Tdap due Goal Hepatitis C screening. Due o n due Goal PRAPARE ASSESSMENT. Due on due Goal Mammogram. Due on 0 due Goal Lipid panel. Due on due Goal HPV. Due on due Goal Zoster vaccine (). Due on due Goal Tdap Vaccine. Due on 2031 due Goal Influenza vaccine. Due on due Goal Colonoscopy. Due on due Goal Depression screening. Due on due Goal ECG. Due on due Goal Urinalysis due Goal Diabetes screening. Due on due Goal Unhealthy drug use screening . Due on due Goal Dietary management education , guidance, and counseling completed Goal Lipid panel. Due on due Goal Hepatitis C screening. Due o n due Goal Mammogram. Due on due Goal HPV. Due on due Goal Colonoscopy. Due on due Goal PRAPARE ASSESSMENT. Due on N due Goal Zoster vaccine (). Due on due Goal Depression screening. Due on due Goal Tdap Vaccine. Due on 2031 due Goal Unhealthy drug use screening . Due on due Goal Tdap due Goal Urinalysis due Goal ECG. Due on due Goal Influenza vaccine. Due on due Goal Diabetes screening. Due on N due Goal Zoster vaccine (). Due on due Goal HPV. Due on due Goal Lipid panel. Due on due Goal PRAPARE ASSESSMENT. Due on N due Goal Influenza vaccine. Due on No due Goal Tdap Vaccine. Due on 2031 due Goal Colonoscopy. Due on due Goal Tdap due Goal Depression screening. Due on due Goal Hepatitis C screening. Due o n due Goal Unhealthy drug use screening . Due on due Goal Mammogram. Due on 0 due Goal Urinalysis due Goal Diabetes screening. Due on N due Goal ECG. Due on due Goal Lifestyle education regardin g diet completed Goal Hep A. Due on du e Goal Lipid panel. Due on due Goal Colonoscopy. Due on due Goal PRAPARE ASSESSMENT. Due on N due Goal Influenza vaccine. Due on No due Goal Tdap due Goal Unhealthy drug use screening . Due on due Goal Zoster vaccine (). Due on due Goal HPV. Due on due Goal Tdap Vaccine. Due on 2031 due Goal Mammogram. Due on due Goal Hepatitis C screening. Due o n due Goal Depression screening. Due on due Goal ECG. Due on due Goal Urinalysis due Goal Diabetes screening. Due on N due Goal HPV. Due on due Goal PRAPARE ASSESSMENT. Due on O due Goal Mammogram. Due on 0 due Goal Colonoscopy. Due on 033 due Goal ECG. Due on due Goal Urinalysis due Goal Diabetes screening. Due on O due Goal Hepatitis C screening. Due o n due Goal Hep A. Due on du e Goal Tdap Vaccine. Due on 2031 due Goal Influenza vaccine. Due on Oc due Goal Unhealthy drug use screening . Due on due Goal Tdap due Goal Depression screening. Due on due Goal Zoster vaccine (1st). Due on due Goal Lipid panel. Due on 027 due Goal Hep A. Due on du e Goal Depression screening. Due on due Goal Tdap due Goal PRAPARE ASSESSMENT. Due on due Goal Mammogram. Due on 0 due Goal Tdap Vaccine. Due on 2031 due Goal Lipid panel. Due on due Goal Colonoscopy. Due on due Goal Zoster vaccine (1st). Due on due Goal Diabetes screening. Due on S due Goal ECG. Due on due Goal Influenza vaccine. Due on Se due Goal Urinalysis due Goal Urinalysis due Goal Mammogram. Due on 0 due Goal PRAPARE ASSESSMENT. Due on S due Goal ECG. Due on due Goal Tdap Vaccine. Due on 2031 due Goal Colonoscopy. Due on due Goal Lipid panel. Due on due Goal Zoster vaccine (1st). Due on due Goal Depression screening. Due on due Goal Influenza vaccine. Due on Se due Goal Diabetes screening. Due on S due Goal Tdap due Goal Lifestyle education regardin g diet completed Goal Hep A. Due on du e Goal Tdap due Goal Urinalysis due Goal Zoster vaccine (1st). Due on due Goal Influenza vaccine. Due on due Goal Mammogram. Due on 0 due Goal ECG. Due on due Goal Tdap Vaccine. Due on 2031 due Goal PRAPARE ASSESSMENT. Due on A due Goal Lipid panel. Due on due Goal Diabetes screening. Due on A due Goal Colonoscopy. Due on due Goal Depression screening. Due on due Goal Lifestyle education regardin g diet completed Goal Urinalysis due Goal Tdap Vaccine. Due on 2031 due Goal ECG. Due on due Goal Influenza vaccine. Due on due Goal Lipid panel. Due on due Goal Diabetes screening. Due on due Goal Mammogram. Due on 0 due Goal Depression screening. Due on due Goal Colonoscopy. Due on due Goal Zoster vaccine (). Due on due Goal Tdap due Goal PRAPARE ASSESSMENT. Due on due Goal Zoster vaccine (). Due on due Goal Depression screening. Due on due Goal Lipid panel. Due on due Goal Tdap Vaccine. Due on 2031 due Goal PRAPARE ASSESSMENT. Due on due Goal Mammogram. Due on 0 due Goal ECG. Due on due Goal Influenza vaccine. Due on due Goal Tdap due Goal Diabetes screening. Due on due Goal Colonoscopy. Due on due Goal Urinalysis due Goal Tdap due Goal Diabetes screening. Due on due Goal Mammogram. Due on 0 due Goal Tdap Vaccine. Due on 2031 due Goal Colonoscopy. Due on due Goal Urinalysis due Goal ECG. Due on due Goal Zoster vaccine (). Due on due Goal Depression screening. Due on due Goal PRAPARE ASSESSMENT. Due on due Goal Influenza vaccine. Due on due Goal Lipid panel. Due on due Goal Hep A. Due on du e Goal Mammogram. Due on 0 due Goal Diabetes screening. Due on due Goal Colonoscopy. Due on due Goal Tdap Vaccine. Due on 2031 due Goal Zoster vaccine (). Due on due Goal Influenza vaccine. Due on due Goal ECG. Due on due Goal Lipid panel. Due on due Goal Depression screening. Due on due Goal Tdap due Goal PRAPARE ASSESSMENT. Due on due Goal Urinalysis due Goal Dietary management education , guidance, and counseling completed Goal Influenza vaccine. Due on due Goal Tdap Vaccine. Due on 2031 due Goal Lipid panel. Due on due Goal Mammogram. Due on 0 due Goal PRAPARE ASSESSMENT. Due on due Goal Depression screening. Due on due Goal Urinalysis due Goal ECG. Due on due Goal Colonoscopy. Due on due Goal Zoster vaccine (). Due on due Goal Diabetes screening. Due on due Goal Tdap due Goal Urinalysis due Goal Tdap due Goal PRAPARE ASSESSMENT. Due on due Goal Colonoscopy. Due on due Goal ECG. Due on due Goal Diabetes screening. Due on due Goal Influenza vaccine. Due on In due Goal Hep A. Due on du e Goal Depression screening. Due on due Goal FOBT. Due on due Goal Mammogram. Due on 0 due Goal Lipid panel. Due on due Goal Tdap Vaccine. Due on 2031 due Goal Zoster vaccine (). Due on due Goal Dietary management education , guidance, and counseling completed Goal Mammogram. Due on 0 due Goal Influenza vaccine. Due on In due Goal PRAPARE ASSESSMENT. Due on due Goal Colonoscopy. Due on 023 due Goal Lipid panel. Due on due Goal Tdap Vaccine. Due on 2031 due Goal FOBT. Due on due Goal Zoster vaccine (). Due on due Goal Depression screening. Due on due Goal Tdap due Goal ECG. Due on due Goal Urinalysis due Goal Diabetes screening. Due on due Goal Dietary management education , guidance, and counseling completed Goal Colonoscopy. Due on 023 due Goal Lipid panel. Due on due Goal ECG. Due on due Goal Diabetes screening. Due on due Goal Tdap Vaccine. Due on 2031 due Goal PRAPARE ASSESSMENT. Due on due Goal Mammogram. Due on 0 due Goal Hep A. Due on du e Goal Influenza vaccine. Due on due Goal Urinalysis due Goal Tdap due Goal FOBT. Due on due Goal Depression screening. Due on due Goal Zoster vaccine (1st). Due on due Goal Dietary management education , guidance, and counseling completed Goal Hep A. Due on du e Goal Tdap Vaccine. Due on 2031 due Goal FOBT. Due on due Goal Lipid panel. Due on due Goal Depression screening. Due on due Goal Urinalysis due Goal ECG. Due on due Goal Tdap due Goal PRAPARE ASSESSMENT. Due on due Goal Influenza vaccine. Due on due Goal Diabetes screening. Due on due Goal Mammogram. Due on 0 due Goal Colonoscopy. Due on 023 due Goal Zoster vaccine (). Due on due Goal Tdap due Goal Zoster vaccine (). Due on due Goal Influenza vaccine. Due on due Goal Mammogram. Due on 0 due Goal ECG. Due on due Goal Urinalysis due Goal FOBT. Due on due Goal Diabetes screening. Due on due Goal Lipid panel. Due on due Goal Depression screening. Due on due Goal PRAPARE ASSESSMENT. Due on due Goal Colonoscopy. Due on due Goal Dietary management education , guidance, and counseling completed Goal Mammogram. Due on 0 due Goal FOBT. Due on due Goal Lipid panel. Due on due Goal Colonoscopy. Due on due Goal Influenza vaccine. Due on due Goal Zoster vaccine (). Due on due Goal Diabetes screening. Due on due Goal Tdap due Goal Depression screening. Due on due Goal Urinalysis due Goal ECG. Due on due Goal PRAPARE ASSESSMENT. Due on due Goal Dietary management education , guidance, and counseling completed Goal Urinalysis due Goal Depression screening. Due on due Goal Mammogram. Due on 0 due Goal Colonoscopy. Due on 022 due Goal FOBT. Due on due Goal ECG. Due on due Goal Diabetes screening. Due on due Goal Zoster vaccine (1st). Due on due Goal Lipid panel. Due on due Goal Influenza vaccine. Due on due Goal PRAPARE ASSESSMENT. Due on due Goal Tdap due Goal Dietary management education , guidance, and counseling completed Goal Depression screening. Due on due Goal Zoster vaccine (1st). Due on due Goal FOBT. Due on due Goal PRAPARE ASSESSMENT. Due on due Goal Colonoscopy. Due on due Goal Lipid panel. Due on due Goal Influenza vaccine. Due on due Goal Tdap due Goal Mammogram. Due on 0 due Goal Diabetes screening. Due on due Goal ECG. Due on due Goal Urinalysis due Goal Dietary management education , guidance, and counseling completed Goal ECG. Due on due Goal Zoster vaccine (1st). Due on due Goal PRAPARE ASSESSMENT. Due on due Goal Depression screening. Due on due Goal Lipid panel. Due on due Goal Influenza vaccine. Due on due Goal FOBT. Due on due Goal Colonoscopy. Due on due Goal Tdap due Goal Mammogram. Due on 0 due Goal Diabetes screening. Due on due Goal Urinalysis due Goal Weight-reducing diet educati on completed Goal FOBT. Due on due Goal Lipid panel. Due on due Goal Depression screening. Due on due Goal Colonoscopy. Due on due Goal Zoster vaccine (). Due on due Goal ECG. Due on due Goal Influenza vaccine. Due on No v due Goal PRAPARE ASSESSMENT. Due on N ov due Goal Mammogram. Due on 0 due Goal Urinalysis due Goal Tdap. Due on due Goal Diabetes screening. Due on N due Goal Dietary management education , guidance, and counseling completed Goal Tdap. Due on due Goal ECG. Due on due Goal Urinalysis due Goal Lipid panel. Due on due Goal FOBT. Due on due Goal Influenza vaccine. Due on Oc due Goal PRAPARE ASSESSMENT. Due on O due Goal Colonoscopy. Due on due Goal Mammogram. Due on 0 due Goal Zoster vaccine (1st). Due on due Goal Diabetes screening. Due on O due Goal Depression screening. Due on due Goal Dietary management education , guidance, and counseling completed Goal ECG. Due on due Goal Lipid panel. Due on due Goal Zoster vaccine (1st). Due on due Goal FOBT. Due on due Goal Depression screening. Due on due Goal Mammogram. Due on 0 due Goal Colonoscopy. Due on due Goal Tdap. Due on due Goal PRAPARE ASSESSMENT. Due on O due Goal Influenza vaccine. Due on Oc due Goal Diabetes screening. Due on O due Goal Urinalysis due Goal Lifestyle education regardin g diet completed Goal ECG. Due on due Goal Urinalysis due Goal FOBT. Due on due Goal Diabetes screening. Due on O due Goal Zoster vaccine (1st). Due on due Goal PRAPARE ASSESSMENT. Due on O due Goal Colonoscopy. Due on due Goal Lipid panel. Due on due Goal Mammogram. Due on 0 due Goal Depression screening. Due on due Goal Influenza vaccine. Due on Oc due Goal Tdap. Due on due Goal Urinalysis due Goal Influenza vaccine. Due on Oc due Goal Colonoscopy. Due on due Goal Tdap. Due on due Goal FOBT. Due on due Goal Diabetes screening. Due on O ct due Goal Zoster vaccine (). Due on due Goal Depression screening. Due on due Goal PRAPARE ASSESSMENT. Due on O due Goal ECG. Due on due Goal Mammogram. Due on 0 due Goal Lipid panel. Due on due Goal Lifestyle education regardin g diet completed Goal ECG. Due on due Goal Lipid panel. Due on due Goal Mammogram. Due on 0 due Goal Colonoscopy. Due on due Goal Influenza vaccine. Due on Oc due Goal Depression screening. Due on due Goal Tdap. Due on due Goal Zoster vaccine (). Due on due Goal Urinalysis due Goal PRAPARE ASSESSMENT. Due on O ct due Goal Diabetes screening. Due on O ct due Goal FOBT. Due on due Goal Mammogram. Due on 0 due Goal Lipid panel. Due on due Goal Colonoscopy. Due on due Goal Influenza vaccine. Due on Se due Goal FOBT. Due on due Goal Zoster vaccine (1st). Due on due Goal PRAPARE ASSESSMENT. Due on S due Goal Urinalysis due Goal ECG. Due on due Goal Depression screening. Due on due Goal Tdap. Due on due Goal Diabetes screening. Due on due Goal ECG. Due on due Goal FOBT. Due on due Goal Urinalysis due Goal Zoster vaccine (). Due on due Goal Diabetes screening. Due on S due Goal Depression screening. Due on due Goal Tdap. Due on due Goal Influenza vaccine. Due on Se p due Goal Lipid panel. Due on due Goal PRAPARE ASSESSMENT. Due on due Goal Colonoscopy. Due on due Goal Mammogram. Due on 0 due Goal Urinalysis due Goal Tdap. Due on due Goal Mammogram. Due on 0 due Goal ECG. Due on due Goal Diabetes screening. Due on due Goal PRAPARE ASSESSMENT. Due on due Goal Colonoscopy. Due on due Goal FOBT. Due on due Goal Depression screening. Due on due Goal Zoster vaccine (). Due on due Goal Lipid panel. Due on due Goal Influenza vaccine. Due on due Goal Lipid panel. Due on due Goal Influenza vaccine. Due on due Goal Tdap. Due on due Goal Depression screening. Due on due Goal Mammogram. Due on due Goal Colonoscopy. Due on due Goal Zoster vaccine (). Due on due Goal ECG. Due on [...] Goal ECG. Due on due Goal Depression screening. Due on due Goal Zoster vaccine (). Due on due Goal Colonoscopy. Due on due Goal Mammogram. Due on 0 due Goal Urinalysis due Goal Lipid panel. Due on due Goal Dietary management education , guidance, and counseling completed Goal Urinalysis due Goal Diabetes screening. Due on due Goal ECG. Due on due Goal Mammogram. Due on due Goal Lipid panel. Due on 025 due Goal Colonoscopy. Due on 022 due Goal Influenza vaccine. Due on due Goal Depression screening. Due on due Goal Tdap. Due on due Goal FOBT. Due on due Goal Zoster vaccine (). Due on due Goal Lifestyle education regardin [...] Diabetes screening. Due on due Goal Dietary management education , guidance, and counseling completed Goal Diabetes screening. Due on due Goal ECG. Due on due Goal Dietary management education , guidance, and counseling completed Goal ECG. Due on due Goal Diabetes screening. Due on S due Goal Dietary management education , guidance, and counseling completed Goal Diabetes screening. Due on A due Goal ECG. Due on due Goal Dietary management education , guidance, and counseling completed Goal Diabetes screening. Due on due Goal ECG. Due on due Goal Dietary management education , guidance, and counseling completed Goal ECG. Due [...] screening. Due on O due Goal Dietary management education , guidance, and counseling completed Goal ECG. Due on due Goal Diabetes screening. Due on O due Goal Dietary management education , guidance, and counseling completed Goal ECG. Due on due Goal Diabetes screening. Due on S due Goal Dietary management education , guidance, and counseling completed Goal ECG. Due on due Goal Diabetes screening. Due on A due Goal Dietary management education , guidance, and counseling completed Goal Diabetes screening. Due on due Goal ECG. Due on due Goal Dietary management education , guidance, and counseling completed Goal ECG. Due on due Goal Diabetes screening. Due on due Goal Diabetes screening. Due on due Goal ECG. Due on due Goal ECG. Due on due Goal Diabetes screening. Due on due Goal Diabetes screening. Due on due Goal ECG. Due on due Goal Dietary management education , guidance, and counseling completed Goal Diabetes screening. Due on due Goal ECG. Due on due Goal ECG. Due on due Goal Diabetes screening. Due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 regarding further question with shingles vaccination and coverage. Related to Need for shingles vaccine Both COVID-19 vaccin ation and annual influenza vaccinations are recommended by [facility] to those eligible, you can call to schedule via outpatient vaccination clinic at [phone]. 1. COVID-19 booster vaccine call to schedule 2. Influenza vaccination- call to schedule Related to No vaccination-pt refuse 1. stop use of blue light emitting devices 2 hours prior to set bedtime2. set a bedtime to adhere to routinely3. avoid alcohol and caffeine use prior to bed time.4. No large meals 2 hours prior to bedtime5. may try OTC melatonin6. Follow up in office if not improving. Related to Sleep difficulties 1. Take blood pressu re medication daily as prescribed.2. Monitor blood pressure at home regularly and record for next follow up visit.3. Reduce sodium intake to 1 tsp (2300mg) per day maximum 4. Participate in moderate intensity aerobic exercise 5 days per week 30 minutes5. No nicotine6. Alcohol ONLY in moderation7. Decrease weight8. Follow up: 3 months Related to Hypertension, unspecified type 1. Take medications as prescribed.2. Diet limit intake of meals high in LDL cholesterol and increase intake of HDL containing foods.3. Increase fiber to 5-10 grams per day4. Exercise at least 30 minutes 3-5 times per week of active exercise5. No nicotine or smoking6. Follow up 6 months. Related to Hyperlipidemia, unspecified hyperlipidemia type Giving encouragement to exercise Related to Body mass index [BMI] 31.0-31.9, adult Lifestyle education regarding di et Related to Body mass index [BMI] 31.0-31.9, adult Both COVID-19 vaccin ation and annual influenza vaccinations are recommended by [facility] to those eligible, you can call to schedule via outpatient vaccination clinic at [phone]. 1. COVID-19 booster vaccine call to schedule 2. Influenza vaccination- call to schedule 3. Consider getting vaccinated for shingles, you are over the age of 50.Contact your insurance to verify preferred site for shingles vaccination and schedule the vaccine. 4. Contact [facility] [phone] [phone] and ask to speak to Trudy Ayala [...] 1. Follow up: Referr al placed to [facility] If you have not been contacted per specialist office to which you referred to in 2 weeks please contact the [facility] at [phone] and advise triage nurse. Related to Vitreous [...] Acute UTI 1. Take medications as prescribed.2. Diet limit [...] sleep hygiene.5. Well balanced healthy diet6. Use [facility] Hotline for any suicidal or homicidal ideationsTOLL FREE 1-465.181.46667. Follow up: 6 month(s)8. Avoid alcohol and drug use Related to Depression with anxiety 1. Avoid nicotine, a lcohol, and caffeine2. [...] pain or shortness of breath. Related to COVID-19 Giving encouragement to exercise Related to Body mass index [BMI] 32.0-32.9, adult Lifestyle education regarding di et Related to Body mass index [BMI] 32.0-32.9, adult 1. Contact [facility] for any concerns2. Self isolate at home3. OTC medications for symptoms4. avoid cigarette smoke5. rest and hydrate6. ER for worsening of symptoms7. Follow up 1 week Related to COVID-19 Giving encouragement to exercise Related to Body mass index [BMI] 32.0-32.9, adult Lifestyle education regarding di et Related to Body mass index [BMI] 32.0-32.9, adult 1. [facility] for any concerns2. Self isolate at home3. Paxlovid as ordered, hold statin for 2 weeksalbuterol PRNpromethazine DM for coughprednisone as ordered4. avoid cigarette smoke5. rest and hydrate6. ER for worsening of symptoms7. Follow up in office on Saturday. Related to COVID- 1. Take medications as prescribed.2. Diet limit [...] and annual influenza vaccinations are recommended by [facility] to those eligible, you can call to schedule via outpatient vaccination clinic at [phone]. 1. COVID-19 BOOSTER call to schedule 2. [...] and NSAIDs Related to Epigastric pain 1. Referral to gastr o for EGD2. increase pantoprazole to 40mg3. ER for worsening of symptoms4. Avoid alcohol and NSAIDs Related to Acute anemia 1. Take blood pressu re medication daily [...] month Related to Hypertension, unspecified type 1. Take medications as prescribed.2. Continue or consider counseling3. Exercise regularly4. practice good sleep hygiene.5. Well balanced healthy diet6. Use [facility] Hotline for any suicidal or homicidal ideationsTOLL FREE 1-277.703.23537. Follow up: 6 months Related to Depression with anxiety 1. CBC and iron stud ies pending2. Will contact if iron can be discontinued or should continue Related to Acute anemia Giving encouragement to exercise Related to Body [...] 1. CBC repeat Related to Acute anemia Giving encouragement to exercise Related to Body mass index [BMI] 34.0-34.9, adult Dietary management e ducation, guidance, and counseling Related to Body mass index [BMI] 34.0-34.9, adult 1. ENT If you have n ot been contacted per specialist office to which you referred to in 2 weeks please contact the Health [facility] at [phone] and advise triage nurse. Related to Progressive [...] mass index [BMI] 33.0-33.9, adult 1. Take medications as prescribed.2. Diet limit intake of meals high in LDL cholesterol and increase intake of HDL containing foods.3. Increase fiber to 5-10 grams per day4. Exercise at least 30 minutes 3-5 times per week of active exercise5. No nicotine or smoking6. Follow up 6 months. Related to Hyperlipidemia, unspecified hyperlipidemia type 1. follow up with gastro as sche duled Related to Colon cancer screening 1. Take medications as prescribed.2. Consider counseling3. Exercise regularly4. practice good sleep hygiene.5. Well balanced healthy diet6. Use [facility] Hotline for any suicidal or homicidal ideationsTOLL FREE 1-598.497.20347. Follow up: 6 months Related to Depression with anxiety 1. Take medications as prescribed.2. Diet limit intake of meals high in LDL cholesterol and increase intake of HDL containing foods.3. Increase fiber to 5-10 grams per day4. Exercise at least 30 minutes 3-5 times per week of active exercise5. No nicotine or smoking6. Follow up 6 months. Related to Hypertension, unspecified type 1. increase hydratio n2. Follow up as needed Related to Dizziness 1. Use inhalers as o rdered2. Report [...] to in 2 weeks please contact the [facility] at [phone] and advise triage nurse Related to Colon cancer screening 1. Take blood pressu re medication daily as prescribed.STOP HCTZ2. Monitor blood pressure at home regularly and record for next follow up visit.3. Reduce sodium intake to 1 tsp (2300mg) per day maximum 4. Participate in moderate intensity aerobic exercise 5 days per week 30 minutes5. Decrease weight8. Follow up: 3 WEEKS Related to Dizziness 1. Referral to Ortho pedics If you have not been contacted per specialist office to which you referred to in 2 weeks please contact the [facility] at [phone] and advise triage nurse. Related to Cyst of tendon sheath 1. gentle stretching 2. complete x-ray3. Rest [...] [BMI] 32.0-32.9, adult 1. Notify [facility] for s jimmie of insurance in order to refer for [...] and annual influenza vaccinations are recommended by [facility] to those eligible, you may recieve them at your appointment today, if you choose to forgo vaccination today you can call to schedule via outpatient vaccination clinic at [phone]. 1. COVID-19 booster call to schedule2. Influenza [...] and annual influenza vaccinations are recommended by [facility] to those eligible, you may recieve them at your appointment today, if you choose to forgo vaccination today you can call to schedule via outpatient vaccination clinic at [phone]. 1. COVID-19 booster call to schedule2. Influenza [...] and annual influenza vaccinations are recommended by [facility] to those eligible, you may recieve them at your appointment today, if you choose to forgo vaccination today you can call to schedule via outpatient vaccination clinic at [phone]. 1. COVID-19 booster call to schedule2. Influenza vaccination- call to schedule when available Related to No vaccination-pt refuse 1. fluticasone as or dered2. follow up 2 weeks Related to Allergic rhinitis, unspecified seasonality, unspecified trigger 1. Take blood pressu re medication daily [...] Body mass index [BMI] 32.0-32.9, adult 1. Use inhaler as or dered2. Report increased use of inhaler3. Avoid cigarette smoke. 4. FU in 6 months5. Return sooner for worsening of symptoms or fever.6. PLEASE ENSURE THAT YOUR INFLUENZA, PNEUMONIA, AND COVID-19 VACCINATIONS ARE UP TO DATE ANNUALLY. Related to Asthma 1. Take blood pressu re medication daily [...] 1 months Related to Hypertension, unspecified type Giving [...] to in 2 weeks please contact the [facility] at [phone] and advise triage nurse. Related to Renal [...] to in 2 weeks please contact the [facility] at [phone] and advise triage nurse. Related to Cyst [...] to Body mass index [BMI] 32.0-32.9, adult Encouraged monthly B SE. Recommend calcium 1000mg QD. Encouraged good dietary intake and exercise. Laboratory specimens sent to lab. Patient to call in 2 weeks if desires results. Related to Encounter for gynecological examination (general) (routine) without abnormal findings Discussed condyloma in detail. Treatment with TCA completed today. Encouraged to monitor and if persistent then RTC 3-4 weeks. Patient states understanding. Related to Condyloma acuminatum Giving encouragement to exercise Related to Body [...] Exercise regularly4. practice good sleep hygiene.5. Use [facility] Hotline for any suicidal or homicidal ideations6 [...] Exercise regularly4. practice good sleep hygiene.5. Use [facility] Hotline for any suicidal or homicidal ideations6 [...] self pay Related to Acute bronchiolitis, unspecified Giving encouragement to exercise Related to Body [...] for several years Related to Encntr for detacher exam (general) (routine) w/o abn findings Giving [...] to Body mass index (BMI) 34.0-34.9, adult Encouraged monthly B SE. Recommend calcium 1000mg QD. Encouraged good dietary intake and exercise. Laboratory specimens sent to lab. Patient to call in 2 weeks if desires results. Discussed severe dysplasia and recommend repeat pap in 6 months. If transfers care back to wncouraged to sign medical release Related to Encntr for detacher exam (general) (routine) w/o abn findings Cervical cultures se nt to lab. Patient to call in 1 week for results Related to - STD screen Urine culture sent to lab. Relat ed to Urinary frequency Assessments Type Assessment Date No Information Goals Health Concern Goal Type Priority Status [...] factors necessary to manage hypertension. Patient Goal Patient Care Teams Name Effective Dates (start - stop) Status Members No Information
[2025-07-10 17:13] VITALS: BP 146/78; PULSE 69; TEMP 36.6; O2SAT 100; BMI 32.9
--- NOTE | 2025-07-10 17:29 | ED_ITS ---
HPI HPI - General Adult General Chief complaint: Abdominal Pain Stated complaint: PAIN ON R SIDE Time Seen by Provider: 07/10/25 17:10 Source: patient Mode of arrival: walk-in History of Present Illness HPI narrative: cc - pain along right torso, underneath right breast Symptoms started months ago . They were initially intermittent but have recently become constant - pain is worse with deep breaths, coughing and any movement of the torso. Pain is along the right rib cage, just below the right breast, and moves along the pateral right torso into the right flank. She denied any fever, chills, urinary symptoms. She said she had some nausea and vomiting last week - but it stopped on its own . No blood in stool or urine. She saw her PCP - an [facility] CO[facility]INATOR in [place] - and was given an order for some xrays of the chest and ribs. She had a cholecystectomy and does not have any jaundice. She also wanted me to check her eyes, which have been itchy for the last 2 days - no drainage or crusting. Related Data Home Medications ?Medication ?Instructions ?Recorded ?Confirmed albuterol sulfate 2.5 mg/3 mL mg 07/10/25 (0.083 %) solution for nebulization albuterol sulfate 90 mcg/actuation inhalation 07/10/25 aerosol inhaler apixaban 5 mg tablet (Eliquis) mg 07/10/25 cetirizine 10 mg tablet mg 07/10/25 clotrimazole-betamethasone 1 applic topical 07/10/25 %-0.05 % topical cream doxycycline hyclate 100 mg capsule mg 07/10/25 flecainide 150 mg tablet mg 07/10/25 losartan 100 mg tablet mg 07/10/25 mupirocin 2 % topical ointment topical 07/10/25 simvastatin 20 mg tablet mg 07/10/25 Allergies Allergy/AdvReac Type Severity Reaction Status Date / Time Cephalosporins Allergy Severe Hives Verified 07/10/25 17:20 Penicillins Allergy Severe Hives Verified 07/10/25 17:20 meperidine (From Demerol) AdvReac Severe Verified 07/10/25 17:20 position PFSH PFSH Social History Little interest or pleasure in doing things: not at all Feeling down, depressed, or hopeless: not at all Exam Narrative Exam Narrative: Nurses notes and vital signs reviewed and patient is not hypoxic. afebrile General: Well-appearing and in no apparent distress. Skin: Warm, dry, no pallor noted. No rash along the torso or the patient localizes the pain. Head: Normocephalic, atraumatic. Neck: Supple, non-tender. Eye: Pupils are equal, round and EOMI. No scleral icterus. Normal conjunctivae bilaterally. Ears, Nose, Mouth, and Throat: Oral mucosa is moist Cardiovascular: Regular Rate and Rhythm without murmur, gallop or rub. Respiratory: No accessory muscle use or respiratory distress. Lungs are clear to auscultation, no wheezing, rales or rhonchi Chest Wall: Dermatomal tenderness noted along the mid anterolateral and posterolateral torso just below the level of the right breast without crepitus or subcutaneous emphysema. Back: No midline thoracic or lumbar vertebral tenderness. No CVA tenderness Musculoskeletal: normal ROM, no calf or popliteal tenderness, no lower extremity edema/swelling GI: Abdomen is soft, non-distended. Normal bowel sounds. No masses appreciated. No tenderness to palpation. No rebound, guarding, or rigidity noted. Neurological: A&O x4. No cranial nerve dysfunction observed. No truncal ataxia. Moves all extremities. Sensation intact. Psychiatric: Cooperative and interactive. Normal mood and affect. Constitutional Vital Signs, click to edit/add: Last Vital Signs Temp 98 F 07/10/25 17:13 Pulse 69 07/10/25 17:13 Resp 18 07/10/25 17:13 BP 146/78 H 07/10/25 17:13 Pulse Ox 100 07/10/25 17:13 Course Vital Signs Vital signs: Vital Signs Temperature 98 F 07/10/25 17:13 Pulse Rate 69 07/10/25 17:13 Respiratory Rate 18 07/10/25 17:13 Blood Pressure 146/78 H 07/10/25 17:13 Pulse Oximetry 100 07/10/25 17:13 Temperature 98 F 07/10/25 17:13 Pulse Rate 69 07/10/25 17:13 Respiratory Rate 18 07/10/25 17:13 Blood Pressure 146/78 H 07/10/25 17:13 Pulse Oximetry 100 07/10/25 17:13 Medical Decision Making MDM Narrative Medical decision making narrative: The patient presents with pleuritic pain to the right chest that does not involve the abdomen. She had some GI symptoms last week but none now. She has postcholecystectomy. She said the symptoms have waxed and waned for months but within the last few weeks have become constant. Her primary care physician gave her orders for x- rays of the chest and right ribs. Patient was placed on satellite project site monitor and EKG obtained. Blood drawn and sent for evaluation. CT angio of the chest was ordered. White blood cell count is normal. Electrolytes and renal function are normal. LFTs are normal as well with only minimal elevation of alk phos at 143. BNP and troponin are negative -EKG reveals bradycardia but no ST elevation or deep ischemic changes. We are awaiting the patient's renal function before sending her for CT scanning of the chest. Patient is signed out to Dr. Connell at 7 PM shift change. Lab Data Lab results reviewed: Yes I reviewed the patient's lab results Labs: Lab Results 07/10/25 Range/Units 17:55 WBC 6.8 (4.0-11.0) 10^3/uL RBC 4.50 (4.20-5.40) 10^6/uL Hgb 11.7 L (12.0-16.0) g/dL Hct 36.5 (36.0-48.0) % MCV 81.1 (81.0-99.0) fL MCH 26.0 L (26.7-34.0) pg MCHC 32.1 (29.9-35.2) g/dL RDW 15.6 H (11.0-15.0) % Plt Count 261 (150-450) 10^3/uL MPV 10.3 (9.5-13.5) fL Neut % (Auto) 68.1 (43.0-75.0) % Lymph % (Auto) 25.7 (20.5-60.0) % [place] % (Auto) 4.6 (1.7-12.0) % Eos % (Auto) 1.2 (0.9-7.0) % Baso % (Auto) 0.3 (0.2-2.0) % Neut # (Auto) 4.6 (1.4-6.5) 10^3/uL Lymph # (Auto) 1.7 (1.2-3.8) 10^3/uL [place] # (Auto) 0.3 (0.3-0.8) 10^3/uL Eos # (Auto) 0.1 (0.0-0.7) 10^3/uL Baso # (Auto) 0.0 (0.0-0.1) 10^3/uL Abs Immat Gran (auto) 0.01 (0.00-0.03) 10^3/uL Imm/Tot Granulo (auto) 0.1 (0.0-0.5) % Sodium 135 L (136-145) mmol/L Potassium 4.0 (3.5-5.1) mmol/L Chloride 101 (98-107) mmol/L Carbon Dioxide 29.9 (21.0-32.0) mmol/L Anion Gap 8.1 BUN 16.0 (7.0-18.0) mg/dL Creatinine 0.95 (0.55-1.02) mg/dL Est GFR ( Amer) >60 (>=60 mL/min/1.73m^2) Est GFR (Non-Af Amer) 59 L (>=60 mL/min/1.73m^2) BUN/Creatinine Ratio 16.8 Glucose 94 (74-106) mg/dL Calcium 9.3 (8.5-10.1) mg/dL Total Bilirubin 0.7 (0.2-1.0) mg/dL AST 12 L (15-37) U/L ALT 18 (14-59) U/L Alkaline Phosphatase 143 H (46-116) U/L Troponin I High Sens 6.0 (4.0-51.3) pg/mL NT-Pro-B Natriuret Pep 160.0 (<=900.0) pg/mL Total Protein 7.4 (6.4-8.2) g/dL Albumin 3.5 (3.4-5.0) g/dL Globulin 3.9 g/dL Albumin/Globulin Ratio 0.9 ECG Data Attestation: ?I have reviewed the pertinent ECG results. Interpretation: EKG interpretation:Emergency Department physician interpretation. Normal sinus rhythm/bradycardia at 53bpm. first-degree AV block. No ST segment elevation or depression. Discharge Plan Discharge Patient Disposition: Still a Patient
--- OUTSIDE RECORDS SUMMARY | 2025-07-10 17:31 | XMS_ITS | Clinical Summary ---
Author Organization [facility] Address [address] [place] [address] Care Team Providers Care Plaster Mixer Name Role Phone [facility] [place] Primary Car e Provider Allergies Active AllergyReactionsCriticalityNoted DateCommentsAmlodipineDizziness 04/10/2024 Other Reaction(s): Other (see comments) Esswadlaoc22/01/2024 Other Reaction(s): hives LeajqunzhxmakhBluymjy61/29/6463Mgcihlmxq80/01/2024 Other Reaction(s): hives SqjyllgbrxUwtzrgr17/29/4367WhuifxgixrKealsstak03/02/2024 Other Reaction(s): Dizziness EiplbaiqeayRzrngid33/29/2023 Medications MedicationSigDispense QuantityRefillsLast FilledStart DateEnd DateStatus Ventolin HFA 108 (90 Base) MCG/ACT inhaler 03/05/2023ctive Eliquis 5 MG tablet as directed Orally two times dailyActive Symbicort 160-4.5 MCG/ACT inhaler 03/05/2023ctive cetirizine (ZyrTEC) 10 MG tablet 1 (one) time each day at the same time.Active flecainide (Tambocor) 150 MG tablet 12/18/2022ctive FLUoxetine (PROzac) 20 MG capsule 03/05/2023ctive folic acid (Folvite) 800 MCG tablet 1 (one) time each day at the same time.Active simvastatin (Zocor) 20 MG tablet 1 (one) time each day at the same time.Active losartan (Cozaar) 100 MG tablet 01/17/2023ctive MAGnesium-Oxide 400 (240 Mg) MG tablet 02/28/2023ctive pantoprazole (ProtoNix) 40 MG EC tablet Take 40 mg by mouth in the morning. Take before meals.04/23/2023ctive montelukast (Singulair) 10 MG tablet Take 10 mg by mouth in the morning.Active amLODIPine (Norvasc) 5 MG tablet 10/06/2023ctive doxycycline (Monodox) 100 MG capsule 01/01/2025tive lubiprostone (Amitiza) 24 MCG capsule Take 1 capsule by mouth every 12 (twelve) hours5Active Ivermectin 1 % cream 04/19/2025tive Estradiol 0.01 % cream Insert 1 g into the vagina 2 (two) times a weekActive Active Problems ProblemNoted DateDiagnosed DateClosed fracture of head of left zorsxu3801/16/2024 Elbow stiffness, left01/16/20246626Rllsduhewszqp84/29/2023ain in both feet 02/07/2023eripheral vascular qpxcxxs7102/07/2023 Resolved Problems ProblemNoted DateDiagnosed DateResolved DateElbow pain, chronic, left01/16/2024 01/16/2024 Encounters DateTypeDepartmentCare AgsfMvqifwjomad06/24/2025 5:00 PM ESTAncillary Procedure [facility] [address] [place] [address] Encounter for screening mammogram for malignant neoplasm of hamfnl8307/05/2025 Oxjntw2107/02/20252032Icmoax52/20/2025 2:00 PM EDTOffice Visit [facility] [address] [place] [address] Tien Garcia DO Encounter for gynecological examination with abnormal finding (Primary Dx); Encounter for screening mammogram for malignant neoplasm of breast; Vaginal dwpcmiv4405/31/2025Travelfrom Last 3 Months Family History Medical HistoryRelationNameCommentsCancerFatherWillard RichDiabetesFatherWillard Richpre diabetesHeart diseaseFatherWillard RichHyperlipidemiaFatherWillard Rich HypertensionFatherWillard RichDiverticulitisMotherHyperlipidemiaMother HypertensionMotherHypertensionSister2 sistersThyroid diseaseSister2 sisters RelationNameStatusCommentsDaughterAliveFatherWillard RichAliveMotherAliveSister2 sistersSonAlive Social History Tobacco UseTypesPacks/DayYears UsedDateSmoking Tobacco: FormerCigarettes Smokeless Tobacco: Never Tobacco Cessation:Counseling Given: Not Answered Alcohol UseStandard Drinks/WeekCommentsNot Currently0 (1 standard drink = 0.6 oz pure alcohol)No longer drinkAUDIT-CAnswerDate RecordedQ1: How often do you have a drink containing alcohol?Never05/06/2023Q2: How many drinks containing alcohol do you have on a typical day when you are drinking?Patient does not drink 05/06/2023Q3: How often do you have six or more drinks on one occasion?Never 05/06/2023HQ-2AnswerDate RecordedPatient Health Questionnaire-2 Score0 05/06/2023CommentsNoSex and Gender InformationValueDate RecordedSex Assigned at BirthNot on fileLegal SzgJueamx12/15/2023 7:11 PM EDTGender Identity Not on fileSexual OrientationNot on file Last Filed Vital Signs Vital SignReadingTime TakenCommentsBlood Wwiovncw305/7210 2:06 PM EDT Trikt0195 9:45 AM PZOMrbkvxrefqw57.2 ??C (97.2 ??F)12/13/2023 9:45 AM EDTRespiratory Cwpn010312/13/2023 9:45 AM EDTOxygen Vtqrxwtzof51%12/13/2023 9:45 AM EDTInhaled Oxygen Concentration--Emtnpm27.5 kg (184 lb)05/31/2025 2:06 PM EDT Vwevjk450.6 cm (5' 4 )05/31/2025 2:06 PM EDTBody Mass Index31.5805/31/2025 2:06 PM EDT Plan of Treatment DateTypeDepartmentCare Team (Latest Contact Info)Yjgrcjciwlw26/26/2026 2:00 PM EDTOffice Visit [facility] [address] [place] [address] Tien Garcia DO [address] [place] [address] Procedures Procedure NamePriorityDate/TimeAssociated DiagnosisCommentsBI MAMMOGRAM SCREENING TOMOSYNTHESIS UNJZJBTKOMnjpqdk17/24/2025 5:02 PM EST Encounter for screening mammogram for malignant neoplasm of breast from Last 3 Months Results * Bilateral screening mammogram with tomosynthesis [...] IS VERY IMPORTANT TO YOUR HEALTH. ??THE [employer] GUIDELINES RECOMMEND THAT WOMEN 40 [...] ANY PENDING ADDITIONAL VIEWS. ELECTRONICALLY SIGNED BY: DO Jelena Owens 07/06/2025 11:08 AM EST BI MAMMOGRAM SCREENING [...] IS VERY IMPORTANT TO YOUR HEALTH. THE [employer] GUIDELINES RECOMMEND THAT WOMEN 40 [...] A Visci DOIMG BI PROCEDURES Final Result from Last 3 Months Insurance Care Teams Team MemberRelationshipSpecialtyStart DateEnd [facility] [address] [place] [phone] PCP - Vbbbdwj86/10/23
--- OUTSIDE RECORDS SUMMARY | 2025-07-10 17:31 | XMS_ITS | Encounter Summary ---
Author Organization [facility] Address [address] [facility] [place] [address] Care Team Providers Care Auger Operator Name Role Phone [facility] [place] Primary Car e Provider Encounter Details DateTypeDepartmentCare Team (Latest Contact Info)Pkxzphtfbdj73/24/2025Travel Social History Tobacco UseTypesPacks/DayYears UsedDateSmoking Tobacco: FormerCigarettes [...] drinks on one occasion?Never3PHQ-2AnswerDate RecordedPatient Health Questionnaire-2 Giqtc388CommentsNoSex and Gender Information ValueDate RecordedSex Assigned at BirthNot on fileLegal NbzTvcxno29/15/2023 7:11 PM EDTGender IdentityNot on fileSexual OrientationNot on filedocumented as of this encounter Plan of Treatment DateTypeDepartmentCare Team (Latest Contact Info)Eyqtasvrpns30/26/2026 2:00 PM EDTOffice Visit [facility] [address] [place] [address] Tien Garcia, DO [address] [facility] [address] [place] [address] documented as of this encounter Visit Diagnoses Not on filedocumented in this encounter Care Teams Team MemberRelationshipSpecialtyStart DateEnd [facility] [address] [place] [phone] PCP - Kbevopr70/10/23documented as of this encounter
--- OUTSIDE RECORDS SUMMARY | 2025-07-10 17:31 | XMS_ITS | Patient Health Record ---
Author Organization [facility] Address [address] [place] [address] Care Team Providers Care Bird Cage Assembler Name Role Phone Karson Perez Primary Care Provider [phone] Reason For Referral No Information Problems Problem Type SNOMED Code ICD Code Onset Dates Problem Status W/U Status Risk Notes Problem Information temporarily unavaila ble Encounter for dental examination and cleaning with abnormal findings (Z01.21) ActiveconfirmedProblemInformation temporarily unavailableOther dental procedure status (Z98.818)Activeconfirmed Plan Of Treatment No Information Insurance Providers Payer Name Payer Address Payer Phone Subscriber Number Group Number Insured Name Patient Relationship to Insured Coverage Start Date Coverage End Date [employer] [address] [address] [place] [address] [id number] Amari NARANJO - patient is the [id number] 2022ental Wrap [facility] [address] [place] [id number], CAROLSelf - patient is the [id number] 2022
--- OUTSIDE RECORDS SUMMARY | 2025-07-10 17:31 | XMS_ITS | Clinical Summary ---
Author Organization [facility] Address [address] [place] [address] Care Team Providers Care Hse Manager Name Role Phone Beto Baptiste MD Unavailable [phone] Owen Peña CNP Unavailable [phone] Social History Tobacco UseTypesPacks/DayYears UsedDateSmoking Tobacco: Never Assessed CommentsUnknownSex and Gender InformationValueDate RecordedSex Assigned at Not on fileLegal HfhIyqcvs87/23/2021 8:30 AM EDTGender IdentityNot on fileSexual OrientationNot on file Plan of Treatment Not on file Insurance MemberSubscriberPlan / Payer (Effective 2020-Present)Name:Shameka Bautista Relation to Subscriber:SelfName:Shameka Bautista Payer ID:Not on file Type:Indemnity Address: [place] [id number] Care Teams Team MemberRelationshipSpecialtyStart DateEnd Date Beto Baptiste MD [address] [place] [phone] CardiologistCardiology12/06/20 Owen Peña CNP [address] [place] [address] [facility]05/20/22
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
--- OUTSIDE RECORDS SUMMARY | 2025-07-10 17:31 | XMS_ITS | Encounter Summary ---
Author Organization [facility] Address [address] [facility] [place] [address] Care Team Providers Care Development Representative Name Role Phone [facility] Primary Car e Provider Encounter Details DateTypeDepartmentCare Team (Latest Contact Info)Invlfxhmswt92/21/2025Travel Social History Tobacco UseTypesPacks/DayYears UsedDateSmoking Tobacco: FormerCigarettes [...] drinks on one occasion?Never3PHQ-2AnswerDate RecordedPatient Health Questionnaire-2 Xcxoe1173CommentsNoSex and Gender Information ValueDate RecordedSex Assigned at BirthNot on fileLegal CozTzrjxl15/15/2023 7:11 PM EDTGender IdentityNot on fileSexual OrientationNot on filedocumented as of this encounter Plan of Treatment DateTypeDepartmentCare Team (Latest Contact Info)Zyenynmjaiq23/26/2026 2:00 PM EDTOffice Visit [facility] [address] [place] [address] Tien Garcia, DO [address] [facility] [address] [place] [address] documented as of this encounter Visit Diagnoses Not on filedocumented in this encounter Care Teams Team MemberRelationshipSpecialtyStart DateEnd [facility] [address] [place] [phone] PCP - Yqbtbsh80/10/23documented as of this encounter
--- OUTSIDE RECORDS SUMMARY | 2025-07-10 17:31 | XMS_ITS | Clinical Summary ---
Author Organization [facility] Address [address] [place] [address] Phone Care Team Providers Care Community Development Technician Name Role Phone CasyeJohanntin GLEZ-NURSE NAVIGATOR Primary Care Provider Allergies Active AllergyReactionsCriticalityNoted DateCommentsCephalosporinsUnknownLow 06/24/20234285QwaawmpkoAdokgHcd80/13/4264FisqwtipnnXdwkusxWqiijv57/13/2023 PlijyyavxdaWnktpsqAfm47/13/2023 Medications MedicationSigDispense QuantityRefillsLast FilledStart DateEnd DateStatus FLUoxetine (PROzac) 10 mg capsule Take 2 capsules (20 mg) by mouth once daily.Active magnesium oxide (Mag-Ox) 400 mg (241.3 mg magnesium) tablet Take 1 tablet (400 mg) by mouth once daily.Active montelukast (Singulair) 10 mg tablet Take 1 tablet (10 mg) by mouth once daily.Active pantoprazole (Protonix) 20 mg EC tablet Take 1 tablet (20 mg) by mouth early in the morning..Active simvastatin (Zocor) 20 mg tablet Take 1 tablet (20 mg) by mouth once daily at bedtime.09/11/2021ctive albuterol 2.5 mg /3 mL (0.083 %) nebulizer solution Take 3 mL (2.5 mg) by nebulization.Active HYDROcodone-acetaminophen (Ogilvie) 5-325 mg tablet Take 1 tablet by mouth every 6 hours if needed for severe pain (7 - 10).Active budesonide-formoteroL (Symbicort) 160-4.5 mcg/actuation inhaler Inhale 2 puffs 2 times a day. Rinse mouth with water after use to reduce aftertaste and incidence of candidiasis. Do not swallow.Active albuterol (Ventolin HFA) 90 mcg/actuation inhaler Inhale 2 puffs every 6 hours if needed for wheezing.Active losartan (Cozaar) 100 mg tablet 1 tablet (100 mg) once daily.03/09/2024ctive apixaban (Eliquis) 5 mg tablet Indications:Longstanding persistent atrial fibrillation (Multi)Take 1 tablet (5 mg) by mouth 2 times a day. 180 tablet /ctive flecainide (Tambocor) 150 mg tablet Indications:Longstanding persistent atrial fibrillation (Multi)Take 1 tablet (150 mg) by mouth every 12 hours. 180 tablet /ctive Active Problems ProblemNoted DateDiagnosed DateNever smoked sbfafop2503/12/2024MI 31.0-31.9,adult 06/28/20234274Dztbkk59/13/2023Essential alewknotchzw33/13/2023Mixed hyperlipidemia 06/24/2023Longstanding persistent atrial zbehyjestvfu05/13/2023alpitations 06/24/2023Shortness of breath at rest06/24/20232957Jfzuxs99/13/2023nticoagulated 06/24/2023 Immunizations ImmunizationAdministration DatesNext DueInfluenza, Rweqwpfudhx57/01/2008Tdap vaccine, age 7 year and older (BOOSTRIX, ADACEL)07/12/2022 Family History Medical HistoryRelationNameCommentsNo Known ProblemsBrotherAtrial fibrillation FatherCoronary artery diseaseFatherHypertensionFatherCoronary artery disease MotherNo Known ProblemsSisterRelationNameStatusCommentsBrotherFatherMotherSister Social History Tobacco UseTypesPacks/DayYears UsedDateSmoking Tobacco: NeverSmokeless Tobacco: Never Tobacco Cessation:Counseling Given: Not Answered Alcohol UseStandard Drinks/WeekCommentsNever0 (1 standard drink = 0.6 oz pure alcohol)CommentsUnknownSex and Gender InformationValueDate RecordedSex Assigned at BirthNot on fileLegal WfzRtlzwi40/26/2022 3:46 PM ESTGender Identity Not on fileSexual OrientationNot on file Last Filed Vital Signs Vital SignReadingTime TakenCommentsBlood Koopsono033/7208 3:40 PM EDT Xtudg127103/12/2024 3:40 PM EDTTemperature--Respiratory Rate--Oxygen Saturation-- Inhaled Oxygen Concentration--Gggord23.7 kg (178 lb)03/12/2024 3:40 PM EDTHeight 160 cm (5' 3 )03/12/2024 3:40 PM EDTBody Mass Index31.5308 3:40 PM EDT Plan of Treatment Health MaintenanceDue DateLast DoneCommentsCT Cluoppwpzajm49/10/1961Colonoscopy 1Colorectal Cancer Zorpujezi05/10/1961FIT-DNA (Cologuard)1960FIT 1960HIV Htdoiujgu99/10/1961Lipid Panel1960 1375Oegyrykeocjzt28/10/1961MMR Vaccines (1 of 1 - Standard series)2Diabetes Oeiyrlpbi02/10/1979 Hepatitis C Fliadcmuq65/10/1979Pneumococcal Vaccine (1 of 2 - PCV)11/20/1979 Cervical Cancer Nhohdofdk17/10/1982HPV/Dyfxur7211/19/1981Pap Smear1981 Vwhebvxox67/10/2001RSV High Risk: (Elderly (60+) or Population) (1 - Risk 50-74 years 1-dose series)2010Zoster Vaccines (1 of 2)2010 Yearly Adult Lyjrmxuu29/26//Influenza Vaccine (#1)2025 08/12/2007COVID-19 Vaccine (1 - season)2025DTaP/Tdap/Td Vaccines (2 - Td or Tdap)HIB VaccinesAged OutNo longer eligible based on patient's age to complete this topicHPV VaccinesAged OutNo longer eligible based on patient's age to complete this topicHepatitis A VaccinesAged OutNo longer eligible based on patient's age to complete this topicHepatitis B VaccinesAged OutNo longer eligible based on patient's age to complete this topic IPV VaccinesAged OutNo longer eligible based on patient's age to complete this topicMeningococcal VaccineAged OutNo longer eligible based on patient's age to complete this topicRotavirus VaccinesAged OutNo longer eligible based on patient's age to complete this topic Insurance Care Teams Team MemberRelationshipSpecialtyStart DateEnd Date Owen Peña APRN-JEFERSON [address] [place] [address] PCP - General12/21/21
--- NOTE | 2025-07-10 17:36 | ECG_ITS ---
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 Measurements Intervals [place] Rate: 53 P: -30 TN: 222 QRS: 41 QRSD: 94 T: 8 QT: 426 QTc: 408 Interpretive Statements 1100 Sinus rhythm 1102 Sinus arrhythmia 2231 First degree AV block 8101 Low QRS voltage in limb leads 9150 abnormal ECG No previous ECG available for comparison Electronically Signed On 07-10-2025 17:52:20 EST by NUPUR ROUSE M.D.
--- NOTE | 2025-07-10 17:36 | CT_ITS ---
[address] [address] Patient Name: ANN NARANJO MRN: [id number] date: 1960 Sex: F Assigned Patient Location: ED.MAIN Current Patient Location: .MAIN Accession/Order Number: [id number] Exam Date: 07/10/2025 18:48 Report Date: 07/10/2025 19:27 At the request of: LEILA RAYGOZA Procedure: CT angio chest CT angio chest 07/10/2025 6:56 PM SIGN AND SYMPTOMS: pleuritic right chest pain CONTRAST: 100 mL of intravenous Omnipaque 350 TECHNIQUE: Multidetector CT axial slices of the chest were obtained with IV contrast. Multiplanar an 3-D reformats were performed and viewed on a separate workstation and reviewed to further define anatomy and possible pathology. CT was performed with one or more of the following dose reduction techniques: Automated exposure control, adjustment of the mA and/or kV according to patient size, or use of iterative reconstruction technique. COMPARISON: None. FINDINGS: Lower neck: Thyroid gland within normal limits, no supraclavicle adenopathy. Vessels: Within normal limits. There is no evidence of pulmonary embolism. Mediastinum and Tania: Calcified left-sided mediastinal lymph nodes are noted. Heart: There is cardiomegaly. No pericardial effusion. Airways: Within normal limits Lungs: Within normal limits. Pleura: Within normal limits. Chest Wall: Within normal limits. Upper Abdomen: There is reflux of contrast into the intrahepatic veins suggesting. Elevated right heart pressures. There is partial visualization of calcifications in the right adrenal gland. Bones: Degenerative changes are noted in the thoracic spine and shoulders. Postoperative changes are visualized in the right shoulder. CT/CT angio chest IMPRESSION: No evidence of pulmonary embolism. There is cardiomegaly with reflux of contrast into the intrahepatic veins suggesting elevated right heart pressures and possible congestive heart failure. No focal consolidation, pleural effusion, or pneumothorax. Impression dictated by: Jad Vidales M.D. 07/10/2025 7:27 PM Dictation Location: [place] [address] Electronically authenticated by: [id number] Date: 07/10/2025 19:27
[2025-07-10 18:04] LABS: Hematocrit 36.5 % (36.0-48.0); Hemoglobin 11.7 g/dL (12.0-16.0); Immature Granulocytes Abs Auto 0.01 10^3/uL (0.00-0.03); Immature Granulocytes Pct Auto 0.1 % (0.0-0.5); Lymphocytes Absolute Auto 1.7 10^3/uL (1.2-3.8); Mean Corpuscular HGB Conc 32.1 g/dL (29.9-35.2); Mean Corpuscular Hemoglobin 26.0 pg (26.7-34.0); Mean Corpuscular Volume 81.1 fL (81.0-99.0); Platelet Count 261 10^3/uL (150-450); Red Blood Count 4.50 10^6/uL (4.20-5.40); White Blood Count 6.8 10^3/uL (4.0-11.0)
[2025-07-10] MEDS: 0.9 % SODIUM CHLORIDE 1,000 ML 999 ML IV (18:06)
[2025-07-10 18:28] LABS: Alanine Aminotransferase 18 U/L (14-59); Albumin Globulin Ratio 0.9; Albumin Level 3.5 g/dL (3.4-5.0); Alkaline Phosphatase 143 U/L (46-116); Anion Gap 8.1; Aspartate Amino Transferase 12 U/L (15-37); Blood Urea Nitrogen 16.0 mg/dL (7.0-18.0); Calcium 9.3 mg/dL (8.5-10.1); Carbon Dioxide 29.9 mmol/L (21.0-32.0); Chloride 101 mmol/L (98-107); Estimated GFR (African America >60 (>=60 mL/min/1.73m^2); Estimated GFR (Non-African Ame 59 (>=60 mL/min/1.73m^2); Globulin 3.9 g/dL; Glucose 94 mg/dL (74-106); Potassium 4.0 mmol/L (3.5-5.1); Sodium 135 mmol/L (136-145); Total Protein 7.4 g/dL (6.4-8.2)
[2025-07-10 18:36] LABS: NT Pro B Type Natriuretic Pept 160.0 pg/mL (<=900.0)
[2025-07-10 19:06] VITALS: BP 162/65; PULSE 58; O2SAT 100
== END 2025-07-10 20:35 | disposition home or self-care (01) ==
PROVIDERS: Emergency Provider Emergency Medicine; PCP Nurse Practitioner Family
DX: R07.89 Other chest pain (principal); Z90.49 Acquired absence of other specified parts of digestive tract
CPT/HCPCS: 36415; 71275; 80053; 83880; 84484; 85025; 93005; 99285; Q9967